=== PATIENT | female | born 1965 | race Caucasian/White ===

== ENCOUNTER 2023-03-10 10:21 | Outpatient (AMB) | payer OTHER, SELFPAY ==
--- NOTE | 2023-03-10 10:23 | MHC.PC.OV ---
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 Past medical history significant for COPD, osteoarthritis and history of fatty liver. Assess the establishing care with director cardiovascular for calcifications in her arteries. Patient advised to send medical records to office. Previous patient of Dr. Lucero, In [place] Pap smears: [facility], completed summer 2022 Mammogram: Apr 2021, negative Colonscopy: 2018, polyps rec 5 year follow up eye exams: Recommended every couple years Patient reports she has received her flu shot this season and states her Tdap is up-to-date. Patient also reports had pneumonia vaccine due to her history of COPD. [facility] Medical History (Updated 03/10/23 @ 10:46 by JEFFREY Livingston) Fatty liver Breast implant status Hx of smoking Hyperlipidemia Surgical History (Updated 03/10/23 @ 10:38 by JEFFREY Livingston) Tubal ligation status Social History Housing: House Patient Tobacco Use Status: Former Tobacco user service: No Current occupational status: employed Cognitive needs: No Hearing needs: No Vision needs: No Questionnaire PHQ-9 Over the last 2 weeks, how often have you been bothered by any of the following problems? 1. Little interest or pleasure in doing things: not at all 2. Feeling down, depressed, or hopeless: not at all 3. Trouble falling or staying asleep, or sleeping too much: not at all 4. Feeling tired or having little energy: not at all 5. Poor appetite or overeating: not at all 6. Feeling bad about yourself - or that you are a failure or have let yourself or your family down: not at all 7. Trouble concentrating on things, such as reading the newspaper or watching television: not at all 8. Moving or speaking so slowly that other people could have noticed. Or the opposite - being so fidgety or restless that you have been moving around a lot more than usual: not at all 9. Thoughts that you would be better off or of hurting yourself in some way: not at all Total score: 0 Depression Screening Interpretation: Negative Depression Screening Done: Yes 30760 - PHQ-9 Billing: Yes Source: Developed by Drs. Teodoro Hsieh, Daisha Valenzuela, Roberto Corona and colleagues, with an educational rebecca from [employer]. Thrive Questionnaire Date Thrive assessed: 03/10/23 I am a: Patient What is your living situation today?: I have a steady place to live Within the past 12 months, did the food you bought not last and you didn't have the money to get more?: Never true Within the past 12 months, did you worry whether your food would run out before you got money to buy more?: Never true Do you have trouble paying for medicines?: No Do you have trouble getting transportation to medical appointments?: No Do you have trouble paying your heating and electricity bill?: No Do you have trouble taking care of your child, family member or friend?: No Do you have trouble with day-to-day activities such as bathing, preparing meals, shopping, managing finances, etc.?: No Are you currently unemployed and looking for a job?: No Are you interested in more education?: No AUDIT C Alcohol Use Questionnaire (AUDIT-C) 1. How often do you have a drink containing alcohol?: 2-3 times a week 2. How many drinks containing alcohol do you have on a typical day when you are drinking?: 3 or 4 3. How often do you have six or more drinks on one occasion?: Never Total Score: 4 MARY-7 AMB Questionnaire MARY-7 Date MARY - 7 assessed: 03/10/23 Feeling nervous, anxious, or on edge: 0 = Not at all Not being able to stop or control worryin = Not at all Worrying too much about different things: 0 = Not at all Trouble relaxin = Not at all Being so restless that it is hard to sit still: 0 = Not at all Becoming easily annoyed or irritable: 0 = Not at all Feeling afraid as if something awful might happen: 0 = Not at all Total MARY-7 score (0-4 normal; 5-9 mild; 10-14 moderate; 15-21 severe): 0 Source: Developed by Drs. Teodoro Hsieh, Daisha Valenzuela, Roberto Corona and colleagues, with an educational rebecca from [employer]. MARY-7 Assessment Billing MARY-7 Assessment Tool: MARY-7 Assessment 54375 Physical exam (Primary Care) Vital Signs: Last Vital Signs Pulse 75 03/10/23 10:24 BP 122/78 03/10/23 10:24 Pulse Ox 98 03/10/23 10:24 Oxygen Delivery Method Room Air 03/10/23 10:24 BMI result Body Mass Index 24.3 Tobacco/Smoking Status: Tobacco use Status Tobacco use date assessed 03/10/23 03/10/23 10:24 Patient Tobacco Use Status Former Tobacco user 03/10/23 10:29 PHQ-9: PHQ-9 Score PHQ-9: Total score 0 03/10/23 10:42 Depression Screening Interpretation: Negative Thrive Assessment: Date of Thrive Assessment Date Thrive assessed 03/10/23 03/10/23 10:24 Assessment and Plan Assessment & Plan (1) Osteoarthritis: Code(s): M19.90 - Unspecified osteoarthritis, unspecified site Plan: Continue on meloxicam 15 mg daily as needed. Prescription sent to patient's pharmacy. (2) COPD (chronic obstructive pulmonary disease): Code(s): J44.9 - Chronic obstructive pulmonary disease, unspecified Plan: Continue on albuterol inhaler as needed. Patient reports that she does not require using albuterol inhaler frequently has not used in months. Patient denies any need for prescription for albuterol at this time states she has a stock pile at home. Patient advised to notify PCP if albuterol inhaler expires in can send her and refill. (3) Physical exam, annual: Code(s): Z00.00 - Encounter for general adult medical examination without abnormal findings Plan: Follow-up in 1 year Orders: Orders Hemoglobin A1c Today Z83.3 - Family history of diabetes mellitus Complete Blood Count Auto Diff Today Z13.0 - Encounter for screening for diseases of the blood and blood-forming organs and certain disorders involving the immune mechanism Comprehensive [place]. Panel Fast Today J44.9 - Chronic obstructive pulmonary disease, unspecified TSH reflex Free T4 Today Z13.29 - Encounter for screening for other suspected endocrine disorder Vitamin D 25-OH Total Today Z13.21 - Encounter for screening for nutritional disorder Lipid Panel Today Z13.220 - Encounter for screening for lipoid disorders Medications: New meloxicam 15 mg PO DAILY 30 tabs 0RF M19.90 - Unspecified osteoarthritis, unspecified site Coding Level of Care Code New Pt Prev Care 40-64y(06892) Diagnoses Osteoarthritis M19.90 COPD (chronic obstructive pulmonary disease) J44.9 Physical exam, annual Z00.00 Additional Codes MARY-7 Assessment Billing - MARY-7 Assessment Tool: MARY-7 Assessment 47472 ([id number])
[2023-03-10 10:24] VITALS: BP 122/78; PULSE 75; O2SAT 98; BMI 24.3
== END 2023-03-10 10:54 | disposition home or self-care (01) ==
PROVIDERS: Visit Provider Nurse Practitioner Family
DX: M19.90 Unspecified osteoarthritis, unspecified site (principal); J44.9 Chronic obstructive pulmonary disease, unspecified; Z00.00 Encounter for general adult medical examination without abnormal findings
CPT/HCPCS: 99386

== ENCOUNTER 2023-05-28 08:39 | Outpatient (REF) | payer OTHER, SELFPAY ==
[2023-05-28 11:33] LABS: MANUAL DIFF FLAG NO
[2023-05-28 11:47] LABS: Basophils Absolute Auto 0.1 X10*3/uL (0.0-0.2); Basophils Percent Auto 1.6 % (0-2); Eosinophils Absolute Auto 0.1 X10*3/uL (0.0-0.4); Hematocrit 42.1 % (37.0-47.0); Hemoglobin 13.8 g/dl (12.0-16.0); Imm Gran Abs Auto 0.01 X10*3/uL (0.00-0.03); Imm Gran Pct Auto 0.2 % (0.0-0.4); Lymphocytes Percent Auto 38.8 % (20-40); Mean Corpuscular HGB Conc 32.8 g/dl (31.0-35.0); Mean Corpuscular Hemoglobin 30.1 pg (27.0-33.0); Mean Corpuscular Volume 91.7 fL (80.0-98.0); Monocytes Absolute Auto 0.6 X10*3/uL (0.1-1.2); Monocytes Percent Auto 11.5 % (2-11); Neutrophils Absolute Auto 2.4 x10*3/uL (2.0-8.3); Neutrophils Percent Auto 46.9 % (45-73); Platelet Count 301 X10*3/uL (160-400); Red Blood Count 4.59 X10*6/uL (4.20-5.50); Red Cell Distribution Width 12.5 % (11.0-16.0); White Blood Count 5.1 X10*3/uL (4.8-10.8)
[2023-05-28 11:58] LABS: Estimated Average Glucose 108 mg/dL; Hemoglobin A1c % 5.4 % (<6.0)
[2023-05-28 12:05] LABS: Alanine Aminotransferase 14 U/L (0-31); Albumin Level 4.1 g/dL (3.5-5.0); Alkaline Phosphatase 59 U/L (39-117); Anion Gap 9 (12-20); Aspartate Amino Transferase 17 U/L (5-31); Bilirubin Total 0.4 mg/dL (0.0-1.0); Blood Urea Nitrogen 15 mg/dL (9-16); Calcium 9.1 mg/dL (8.4-10.2); Carbon Dioxide 28 mmol/L (22-29); Chloride 104 mmol/L (96-108); Cholesterol 249 mg/dL (<200); Estimated Glomerular Filt Rate > 60; Glucose Fasting 99 mg/dL (60-99); HDL Cholesterol 68 mg/dL (>40); LDL Cholesterol Calculated 162 mg/dL (<100); Potassium 4.3 mmol/L (3.3-5.1); Sodium 137 mmol/L (135-145); Total Protein 6.8 g/dL (6.5-8.0); Triglycerides 96 mg/dL (<150)
[2023-05-28 12:28] LABS: TSH reflex Free T4 1.43 uIU/mL (0.32-4.0); Vitamin D 25-OH Total 48.4 ng/mL (>30)
== END 2023-05-28 08:40 | disposition home or self-care (01) ==
LOC: HO.WFDLDS 08:39
PROVIDERS: Visit Provider Nurse Practitioner Family
DX: Z13.29 Encounter for screening for other suspected endocrine disorder (principal); Z13.220 Encounter for screening for lipoid disorders; Z13.21 Encounter for screening for nutritional disorder; Z13.0 Encounter for screening for diseases of the blood and blood-forming organs and certain disorders involving the immune mechanism; J44.9 Chronic obstructive pulmonary disease, unspecified; Z83.3 Family history of diabetes mellitus
CPT/HCPCS: 36415; 80053; 80061; 82306; 83036; 84443; 85025

== ENCOUNTER 2023-06-09 11:57 | Outpatient (REF) | payer OTHER, SELFPAY ==
--- NOTE | ~2023-06-09 | MM_ITS ---
EXAMINATION: MM SCREENING DIGITAL BREAST TOMOSYNTHESIS, BILATERAL WITH BREAST IMPLANTS CLINICAL INFORMATION: Screening. Asymptomatic. COMPARISON: Mammography: This study is compared with prior mammography dating back to 2019. TECHNIQUE: Digital mammography is performed in craniocaudal and mediolateral oblique views along with computer-aided detection (CAD). Digital breast tomosynthesis is performed in implant-displaced craniocaudal and implant-displaced mediolateral oblique views along with computer-aided detection (CAD). Synthesized 2D images are generated from the tomosynthesis. FINDINGS: The breasts are almost entirely fatty (ACR BI-RADS breast composition Category a). There are bilateral, mammographically intact, retroglandular saline breast implants. There are no significant masses, abnormal calcifications, or other abnormalities. MM/MM tomosynthesis screen imp BI IMPRESSION: There are no significant changes from prior study. ASSESSMENT: BI-RADS BI-RADS 1 - Negative RECOMMENDATION: Routine annual mammography screening. 1 year F/U This patient's information was entered into a reminder system with a target due date for their next mammogram.
== END 2023-06-09 11:58 | disposition home or self-care (01) ==
LOC: HO.MAMMO 11:57
PROVIDERS: PCP Nurse Practitioner Family; Visit Provider Internal Medicine
DX: Z12.31 Encounter for screening mammogram for malignant neoplasm of breast (principal)
CPT/HCPCS: 77063; 77067

== ENCOUNTER → 2023-06-09 12:00 | Outpatient (BNV) | payer OTHER, SELFPAY | PROVIDERS: PCP Nurse Practitioner Family; Visit Provider Radiology Diagnostic Radiology | DX: Z12.31 Encounter for screening mammogram for malignant neoplasm of breast (principal) | CPT/HCPCS: 77063; 77067 ==

== ENCOUNTER 2023-06-13 12:02 | Outpatient (AMB) | payer OTHER, SELFPAY ==
--- NOTE | 2023-06-13 12:04 | A.OFFPC_ITS ---
Vital Signs 06/13/23 12:11 Height 5 ft 3 in Weight 136 lb BMI 24.1 BP 120/74 Blood Pressure Location Rt brachial Position Sitting Pulse 84 Pulse Source Pulse Oximeter Pulse Oximetry (%) 96 Oxygen Delivery Method Room Air Intake Visit Reasons: LISSETTE from [place] Intake Note: Patient is here today for transfer of care from [facility]. 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 Operator: Not Required per policy Accompanied by: Self / Same As Patient Allergies No Known Allergies Allergy (Verified 06/13/23 12:41) Medication List - Last Reconciled 06/13/23 by Jacqueline [place], LOGGING OPERATIONS INSPECTOR- albuterol sulfate 90 mcg/actuation (Ventolin HFA) 2 puffs inhalation Q4-6H PRN meloxicam 15 mg PO DAILY Tobacco use date assessed: 06/13/23 Dental Screening Dental Screen Date: 06/13/23 Did you have a dental visit in the last 12 months?: Yes Did you have a dental problem in the last 6 months where you did not have access to dental care?: No Was dental information given to patient?: Patient has dentist HPI HPI Comments History of Present Illness Details Limited records available for review, previous primary care provider [facility] 57-year-old female with fatty liver dise ase, former smoker, hyperlipidemia, COPD, osteoarthritis, CAD Status post breast implants, tubal ligation Health maintenance Pap smear summer reported as normal at [facility] Mammogram 06/09/2023 Colonoscopy 2019, polyps repeat in 5 years (2023) Lung Ca screening: smoked for 33 years. Active w/ [facility]. Next CT scan DEXA 2020 + osteopenia, due for repeat. Vaccines: UTD on flu; No RSV. Has had one PCV vaccine in the last 10 years. Will get Tdap today. 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 Does not want any cholesterol lowering agents. Reports incidental finding of moderate coronary artery disease of the aorta on CT scan of the chest done for lung cancer surveillance 1 year ago. Would like to see Cardiology for further workup Had life screen: EKG, PAD and carotid screening all WNL per her reports. [facility] Medical History (Updated 06/13/23 @ 14:11 by NORMAN Darnell) Fatty liver Breast implant status Hx of smoking Hyperlipidemia Surgical History Tubal ligation status Family History Other Mental health disorder Substance use disorder Social History Housing: House Alcohol intake: current Alcohol intake frequency: a few times a week Patient Tobacco Use Status: Former Tobacco user e-Cigarette/Vaping Use: Never Used Second Hand Smoke Exposure: No service: No Current occupational status: employed Cognitive needs: No Hearing needs: No Vision needs: No Questionnaire PHQ-9 Over the last 2 weeks, how often have you been bothered by any of the following problems? 1. Little interest or pleasure in doing things: not at all 2. Feeling down, depressed, or hopeless: not at all 3. Trouble falling or staying asleep, or sleeping too much: not at all 4. Feeling tired or having little energy: not at all 5. Poor appetite or overeating: not at all 6. Feeling bad about yourself - or that you are a failure or have let yourself or your family down: not at all 7. Trouble concentrating on things, such as reading the newspaper or watching television: not at all 8. Moving or speaking so slowly that other people could have noticed. Or the opposite - being so fidgety or restless that you have been moving around a lot more than usual: not at all 9. Thoughts that you would be better off or of hurting yourself in some way: not at all Total score: 0 Depression Screening Interpretation: Negative Depression Screening Done: Yes 09978 - PHQ-9 Billing: Yes Source: Developed by Drs. Teodoro Hsieh, Daisha Valenzuela, Roberto Corona and colleagues, with an educational rebecca from [employer]. Thrive Questionnaire Date Thrive assessed: 06/13/23 I am a: Patient What is your living situation today?: I have a steady place to live Within the past 12 months, did the food you bought not last and you didn't have the money to get more?: Never true Within the past 12 months, did you worry whether your food would run out before you got money to buy more?: Never true Do you have trouble paying for medicines?: No Do you have trouble getting transportation to medical appointments?: No Do you have trouble paying your heating and electricity bill?: No Do you have trouble taking care of your child, family member or friend?: No Do you have trouble with day-to-day activities such as bathing, preparing meals, shopping, managing finances, etc.?: No Are you currently unemployed and looking for a job?: No Are you interested in more education?: No Please select the resources that you would like help with: None Currently or been in a relationship where the following occur: no concerns r eported THRIVE Score: 0 AUDIT C Alcohol Use Questionnaire (AUDIT-C) 1. How often do you have a drink containing alcohol?: 2-3 times a week 2. How many drinks containing alcohol do you have on a typical day when you are drinking?: 1 or 2 Total Score: 3 Score Reviewed/Action Taken: Yes MARY-7 AMB Questionnaire MARY-7 Date MARY - 7 assessed: 06/13/23 Feeling nervous, anxious, or on edge: 0 = Not at all Not being able to stop or control worryin = Not at all Worrying too much about different things: 0 = Not at all Trouble relaxin = Not at all Being so restless that it is hard to sit still: 0 = Not at all Becoming easily annoyed or irritable: 0 = Not at all Feeling afraid as if something awful might happen: 0 = Not at all Total MARY-7 score (0-4 normal; 5-9 mild; 10-14 moderate; 15-21 severe): 0 Source: Developed by Drs. Teodoro Hsieh, Daisha Valenzuela, Roberto Corona and colleagues, with an educational rebecca from [employer]. MARY-7 Assessment Billing MARY-7 Assessment Tool: MARY-7 Assessment 11724 Review of Systems Const Details: Constitutional: Denies fever. Skin: Denies rash. Eye: Denies eye pain. ENMT: Denies sore throat and nasal congestion. Respiratory: Denies shortness of breath and cough. Gastrointestinal: Denies nausea, vomiting or abdominal pain. Cardiovascular: Denies chest pain and syncope. Genitourinary: Denies dysuria. Musculoskeletal: Denies back pain and extremity pain. Neurologic: Denies headaches, confusion, and weakness. Psychiatric: Denies suicidal thoughts and substance abuse. Allergy/ Immunologic: Denies impaired immunity. Physical exam (Primary Care) Vital Signs: Last Vital Signs Pulse 84 06/13/23 12:11 BP 120/74 06/13/23 12:11 Pulse Ox 96 06/13/23 12:11 Oxygen Delivery Method Room Air 06/13/23 12:11 BMI result Body Mass Index 24.1 Tobacco/Smoking Status: Tobacco use Status Tobacco use date assessed 06/13/23 06/13/23 12:15 Patient Tobacco Use Status Former Tobacco user 06/13/23 12:14 e-Cigarette/Vaping Use Never Used 06/13/23 12:15 PHQ-9: PHQ-9 Score PHQ-9: Total score 0 06/13/23 13:12 Depression Screening Interpretation: Negative Thrive Assessment: Date of Thrive Assessment Date Thrive assessed 06/13/23 06/13/23 12:15 Currently or been in a relationship where the following occur: no concerns reported Const Other: General: Well developed, well nourished, in no acute distress. Appears stated age. Head: Normocephalic, atraumatic. Eyes: Pupils are equal, round and reactive to light and accommodation. Conjunctivae are clear. Vision grossly normal. Ears: TMs clear AU, EACS WNL Nose: Patent, without discharge. Mouth: There are no ulcers or lesions noted. No inflammation, no post nasal drip, no plaques nor exudates. Neck: Supple, no adenopathy or thyromegaly. Lungs: Clear to auscultation bilaterally. No rales, rhonchi or wheeze noted. Good air flow in all philippe. Heart: Regular rate and rhythm. No murmurs, click, rubs or gallops are noted. Abdomen: Bowel sounds present in all quadrants. The abdomen is soft, nontender, with no masses or organomegaly noted. No hernias are noted. Musculoskeletal: Joints are nontender, without swelling, redness, or effusions. Range of motion is observed to be normal. Pulses: Peripheral pulses are equal and palpable bilaterally. Extremities: No clubbing, cyanosis nor edema is noted. Neurologic: Gait and station normal. Cranial Nerves 2-12 intact. Motor strength grossly symmetrical and intact. No sensory loss. Balance normal. Skin: No rashes, ulcers, or lesions noted. Turgor is good. Skin color is good. Hair and nails are without abnormalities. Psych: Normal eye contact, affect and mood appropriate, and normal interactions. Patient is alert and appropriate to context. Extremities: No clubbing, cyanosis or edema. Immunizations Boostrix Tdap 2.5 Lf unit-8 mcg-5 Lf/0.5 mL intramuscular syringe Performing Provider: NORMAN Darnell Performing Location: [facility] Administered by: Shae Espinosa CMA on 06/13/23 13:12 Dose Route Admin Location Dispensed Lot Number Expiration Date NDC Automation And Controls Manager 0.5 mL IM Left Deltoid 0.5 mL [id number] 04/02/25 [id number] FIA Formula E VIS Given Date VIS Provided VIS Publication Date 06/13/23 Single Vaccine 20 Eligibility Eligibility Date Funding Source Not [facility] Eligible 06/13/23 Private Assessment and Plan Assessment & Plan (1) Physical exam: Code(s): Z00.00 - Encounter for general adult medical examination without abnormal findings (2) CAD in [place] artery: Code(s): I25.10 - Atherosclerotic heart disease of [place] coronary artery without angina pectoris (3) Hx of smoking: Comment: hx 30 year smoking, active with [facility] for lung cancer screening program. Next CT scheduled for June of 2023 Code(s): Z87.891 - Personal history of nicotine dependence (4) Screen for colon cancer: Code(s): Z12.11 - Encounter for screening for malignant neoplasm of colon Plan: Refer to [facility]. (5) Osteopenia: Comment: DEXA 2020. Repeat ordered today Code(s): M85.80 - Other specified disorders of bone density and structure, unspecified site Qualifiers: Osteopenia location: multiple sites Qualified Code(s): M85.89 - Other specified disorders of bone density and structure, multiple sites (6) COPD (chronic obstructive pulmonary disease): Comment: Maintained only on p.r.n. use of albuterol. 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 Reports very minimal symptoms. Up-to-date on vaccines. Code(s): J44.9 - Chronic obstructive pulmonary disease, unspecified Qualifiers: COPD type: emphysema Emphysema type: panlobular Qualified Code(s): J43.1 - Panlobular emphysema (7) Hyperlipidemia: Comment: Declines a statin at this time. Cardiology referral placed for further workup of hyperlipidemia and CAD per her request Code(s): E78.5 - Hyperlipidemia, unspecified Qualifiers: Hyperlipidemia type: mixed hyperlipidemia Qualified Code(s): E78.2 - Mixed hyperlipidemia (8) Fatty liver: Comment: Known condition with ultrasound done in the past by previous primary care provider. Code(s): K76.0 - Fatty (change of) liver, not elsewhere classified Orders: Orders XR DEXA axial skeleton Today M85.80 - Other specified disorders of bone density and structure, unspecified site Comprehensive [place]. Panel Fast 04/28/24 I25.10 - Atherosclerotic heart disease of [place] coronary artery without angina pectoris, J44.9 - Chronic obstructive pulmonary disease, unspecified, M85.80 - Other specified disorders of bone density and structure, unspecified site, Z00.00 - Encounter for general adult medical examination without abnormal findings, Z87.891 - Personal history of nicotine dependence Lipid Panel 04/28/24 I25.10 - Atherosclerotic heart disease of [place] coronary artery without angina pectoris, J44.9 - Chronic obstructive pulmonary disease, unspecified, M85.80 - Other specified disorders of bone density and structure, unspecified site, Z00.00 - Encounter for general adult medical examination without abnormal findings, Z87.891 - Personal history of nicotine dependence Microalbumin, Random (w Creat) 04/28/24 I25.10 - Atherosclerotic heart disease of [place] coronary artery without angina pectoris, J44.9 - Chronic obstructive pulmonary disease, unspecified, M85.80 - Other specified disorders of bone density and structure, unspecified site, Z00.00 - Encounter for general adult medical examination without abnormal findings, Z87.891 - Personal history of nicotine dependence TDaP Immunization Today Z23 - Encounter for immunization TSH reflex Free T4 04/28/24 I25.10 - Atherosclerotic heart disease of [place] coronary artery without angina pectoris, J44.9 - Chronic obstructive pulmonary disease, unspecified, M85.80 - Other specified disorders of bone density and structure, unspecified site, Z00.00 - Encounter for general adult medical examination without abnormal findings, Z87.891 - Personal history of nicotine dependence UA and rflx microscopic 04/28/24 I25.10 - Atherosclerotic heart disease of [place] coronary artery without angina pectoris, J44.9 - Chronic obstructive pulmonary disease, unspecified, M85.80 - Other specified disorders of bone density and structure, unspecified site, Z00.00 - Encounter for general adult medical examination without abnormal findings, Z87.891 - Personal history of nicotine dependence Referrals Gastroenterology Referral Z12.11 - Encounter for screening for malignant neoplasm of colon Cardiology Referral I25.10 - Atherosclerotic heart disease of [place] coronary a rtery without angina pectoris, Z87.891 - Personal history of nicotine dependence Medications: Refilled meloxicam 15 mg PO DAILY 30 tabs 3RF M19.90 - Unspecified osteoarthritis, unspecified site Coding Level of Care Code Est Pt Prev Care 40-64y(12059) Diagnoses Physical exam Z00.00 CAD in [place] artery I25.10 Hx of smoking Z87.891 Screen for colon cancer Z12.11 Osteopenia of multiple sites M85.89 Osteopenia location: multiple sites Panlobular emphysema J43.1 COPD type: emphysema Emphysema type: panlobular Mixed hyperlipidemia E78.2 Hyperlipidemia type: mixed hyperlipidemia Fatty liver K76.0 Additional Codes MARY-7 Assessment Billing - MARY-7 Assessment Tool: MARY-7 Assessment 18030 ([id number])
[2023-06-13 12:11] VITALS: BP 120/74; PULSE 84; O2SAT 96; BMI 24.1
== END 2023-06-13 13:32 | disposition home or self-care (01) ==
PROVIDERS: Visit Provider Nurse Practitioner Family
DX: Z00.00 Encounter for general adult medical examination without abnormal findings (principal); J43.1 Panlobular emphysema; I25.10 Atherosclerotic heart disease of native coronary artery without angina pectoris; Z23 Encounter for immunization; Z87.891 Personal history of nicotine dependence; Z12.11 Encounter for screening for malignant neoplasm of colon; M85.89 Other specified disorders of bone density and structure, multiple sites; E78.2 Mixed hyperlipidemia; K76.0 Fatty (change of) liver, not elsewhere classified
CPT/HCPCS: 90471; 90715; 99396

== ENCOUNTER 2023-07-03 12:50 | Outpatient (REF) | payer OTHER, SELFPAY ==
--- NOTE | ~2023-07-03 | MM_ITS ---
EXAMINATION: BONE DENSITOMETRY CLINICAL INDICATION: Other specified disorders of bone density and structure, unspecified site. COMPARISON: This is the patient's baseline examination. TECHNIQUE: Using a [employer] DXA System (software version: 13.1) manufactured by [employer], dual-energy x-ray absorptiometry was performed of the lumbar spine and left hip. The images are of good technical quality. Summary results are attached. FINDINGS: LEFT FEMUR, NECK: BMD 0.778 g/cm2, Z-score -0.7, T-score -1.9, osteopenia. LEFT FEMUR, TOTAL: BMD 0.866 g/cm2, Z-score -0.3, T-score -1.1, osteopenia. AP SPINE L1-L4: BMD 0.976 g/cm2, Z-score -0.6, T-score -1.7, osteopenia. IDENTIFIED RISK FACTORS: Early menopause, history of fracture (adult). HISTORY OF FRACTURE: Shoulder. MEDICATIONS: Vitamin D. MM/XR DEXA axial skeleton IMPRESSION: 1. DIAGNOSIS: Osteopenia based on the lowest T-score value of -1.9 in the femoral neck applying World Health Organization criteria. 2. 10-YEAR FRACTURE RISK PREDICTION, FRAX: Major osteoporotic fracture (clinical spine, forearm, hip or shoulder) 14.7%. Hip fracture 1.8%. 3. Treatment Recommendations: NOF guidelines recommend consideration for treatment in postmenopausal women and men age 50 and older presenting with the following: -A hip or vertebral (clinical or morphometric) fracture. -T-score less than or equal to -2.5 at the femoral neck or spine after appropriate evaluation to exclude secondary causes. -Low bone mass at the hip or spine and a 10-year fracture probability by FRAX of greater than or equal to 3% for hip fracture or greater than or equal to 20% for major osteoporotic fracture based on the [place] adapted WHO algorithm. 4. Other Recommendations: All treatment decisions require clinical judgment and consideration of individual patient factors, including patient preferences, comorbidities, previous drug use, risk factors not captured in the FRAX model (e.g. frailty, falls, vitamin D deficiency, increased bone turnover, interval significant decline in bone density) and possible under or overestimation of fracture risk by FRAX. Additional medical evaluation for secondary cause of low bone mineral density may be appropriate. FUTURE SCAN RECOMMENDATION: People with diagnosed cases of osteoporosis or at high risk for fracture should have regular bone mineral density tests. For patients eligible for Medicare, routine testing is allowed once every 2 years. The testing frequency can be increased to one year for patients who have rapidly progressing disease, those who are receiving or discontinuing medical therapy to restore bone mass, or have additional risk factors.
== END 2023-07-03 12:51 | disposition home or self-care (01) ==
LOC: HO.MAMMO 12:50
PROVIDERS: PCP Nurse Practitioner Family; Visit Provider Nurse Practitioner Family
DX: Z13.820 Encounter for screening for osteoporosis (principal); M85.80 Other specified disorders of bone density and structure, unspecified site; Z78.0 Asymptomatic menopausal state
CPT/HCPCS: 77080

== ENCOUNTER 2023-07-18 09:18 | Outpatient (AMB) | payer OTHER, SELFPAY ==
--- NOTE | 2023-07-18 09:27 | A.OFFVIS_ITS ---
Intake Intake Visit Reasons: LDCT SD Allergies No Known Allergies Allergy (Verified 06/13/23 12:41) HPI HPI Comments History of Present Illness Details Rosalia is a pleasant 57 year old female, former smoker with a 33 PYH, quit 2012 Patient has been smoking since age 13 for 33 years at 1 ppd. Denies marijuana use. Reports exposure to asbestos and diesel fumes. Admits second hand smoke exposure. Reports paternal aunt, smoker, with history of lung cancer. Denies personal history of cancers. Denies chest CT in last year. Previously apart of LCS program at [facility] last CT 04/2022 RADS 2. Denies recent travel outside the [place]. Admits testing positive for COVID. Admits receiving COVID Vaccine. Denies fever, chills, chest pain, new cough, hemoptysis or unintentional weight loss. Lung Cancer Screening Questionnaire reviewed with patient by provider. Shared Decision Making Completed. Discussed in detail with patient, the risk versus benefit of LDCT screening. Patient in agreement of proceeding with scan. [facility] Medical History (Updated 07/07/23 @ 11:08 by JEFFREY Darnell-NEHEMIAH) Fatty liver Breast implant status Hx of smoking Hyperlipidemia Surgical History Tubal ligation status Family History Other Mental health disorder Substance use disorder Social History Housing: House Alcohol intake: current Alcohol intake frequency: a few times a week Patient Tobacco Use Status: Former Tobacco user e-Cigarette/Vaping Use: Never Used Second Hand Smoke Exposure: No service: No Current occupational status: employed Cognitive needs: No Hearing needs: No Vision needs: No Assessment & Plan Assessment & Plan (1) Hx of smoking: Code(s): Z87.891 - Personal history of nicotine dependence Plan Shared decision-making visit completed today in office. This patient meets criteria for LDCT for lung cancer screening purposes and is asymptomatic. Patient has been scheduled for a low dose chest CT for screening purposes at [facility]. We discussed how the results will be obtained depending on CT findings. RADS 1 and RADS 2 will receive a letter with results and will follow up for annual LDCT. Patient informed they will be contacted at later date to schedule upcoming LDCT scan. RADS 3 and RADS 4 will receive a telephone call, or an office visit after reviewing case at our Lung Cancer Conference to determine when the next LDCT will be scheduled or further interventions that may be needed. Discussed importance of screening program and compliance with yearly LDCT scan as scheduled. Risks, benefits, and alternatives were discussed in detail and patient agrees to proceed. Risks discussed include but are not limited to: radiation exposure and possibility of additional intervention for benign disease. Benefits include detection of lung cancer at an early stage. A copy of today's visit and LDCT results will be sent to patient's PCP. Incidental findings on LDCT are PCP's responsibility. If there are incidental findings, our office will ensure that PCP office is aware of these findings. All questions were answered and patient is in agreement of plan. Coding Level of Care Code Lung Cancer Screening G0296 Diagnoses Hx of smoking Z87.891
== END 2023-07-18 10:20 | disposition home or self-care (01) ==
PROVIDERS: PCP Nurse Practitioner Family; Referring Provider Nurse Practitioner Family; Visit Provider Nurse Practitioner Family
DX: Z87.891 Personal history of nicotine dependence (principal)
CPT/HCPCS: G0296

== ENCOUNTER 2023-07-18 09:36 | Outpatient (REF) | payer OTHER, SELFPAY ==
--- NOTE | ~2023-07-18 | CT_ITS ---
EXAMINATION: CT LUNG SCREENING CLINICAL INFORMATION: History of smoking. Quit 10 years ago. Smoked 1 pack per day for a 34 pack-year history. COMPARISON: None available. TECHNIQUE: Multidetector volumetric CT imaging of the chest is performed without contrast using low dose technique. Additional 2D coronal and sagittal reformatted images and axial 3D maximum intensity projection (MIP) images are generated on the CT workstation. This CT examination was performed using dose optimization techniques as appropriate, variously including the following: *Automated exposure control *Adjustment of mA and/or kV according to patient size (this includes techniques or standardized protocols for targeted exams where dose is matched to indication/reason for exam; i.e. extremities or head) *Use of iterative reconstruction technique DLP: 36 mGy-cm. FINDINGS: LUNGS: Jgmqgnkh-sp-ozdrzo emphysematous changes are present. Bronchial wall thickening is seen. Some tiny micronodules are seen at the left base, the largest 3 mm (5:285 and 289). In the left upper lobe laterally, there is a thick-walled cyst measuring about 1.67 cm in size. The medial border has a rounded lobular area measuring 6 x 2 mm (see blanco images which include off axis axial imaging). MEDIASTINUM: The mediastinum is normal. CORONARY ARTERY CALCIFICATION: Present. PLEURA: There is no pleural effusion. No pleural mass or thickening. AXILLA/CHEST WALL: Bilateral breast prostheses are present. UPPER ABDOMEN: Unremarkable. OSSEOUS STRUCTURES: Unremarkable. CT/CT lung screening IMPRESSION: Atypical cyst with asymmetric wall thickening as described above. Underlying emphysema, bronchial wall thickening and hepatic steatosis. ASSESSMENT: Lung-RADS category 4A: Suspicious. RECOMMENDATION: Short interval 3 month follow up low dose CT chest.
== END 2023-07-18 09:37 | disposition home or self-care (01) ==
LOC: HO.CT 09:36
PROVIDERS: PCP Nurse Practitioner Family; Visit Provider Nurse Practitioner Family
DX: Z12.2 Encounter for screening for malignant neoplasm of respiratory organs (principal); Z87.891 Personal history of nicotine dependence
CPT/HCPCS: 71271; G0296

== ENCOUNTER 2023-10-20 10:31 | Outpatient (REF) | payer OTHER, SELFPAY ==
--- NOTE | ~2023-10-20 | CT_ITS ---
EXAMINATION: CT CHEST WITHOUT CONTRAST CLINICAL INFORMATION: Follow-up nodules COMPARISON: 07/18/2023 TECHNIQUE: Multidetector volumetric CT imaging of the chest was done. Axial MIP volume rendering provided. Sagittal and coronal reformatted images were obtained. This CT examination was performed using dose optimization techniques as appropriate, variously including the following: *Automated exposure control *Adjustment of mA and/or kV according to patient size (this includes techniques or standardized protocols for targeted exams where dose is matched to indication/reason for exam; i.e. extremities or head) *Use of iterative reconstruction technique DLP: 117 mGy-cm FINDINGS: LUNGS: Left upper lobe mixed cystic/solid nodule measures 1.2 x 2.1 cm with the solid component measuring 3 mm (5:147. Moderate background emphysema. Left lower lobe 3 mm nodule (5:398), unchanged. Central airways are PLEURA: No pleural effusion. MEDIASTINUM: No cardiomegaly. Aorta and pulmonary artery are normal in caliber. No mediastinal adenopathy. No hilar lymphadenopathy. CORONARY ARTERY CALCIFICATION: Coronary artery calcifications are present. CHEST WALL/AXILLA: No axillary or internal mammary lymphadenopathy. Bilateral breast implants are noted. UPPER ABDOMEN: Unremarkable. OSSEOUS STRUCTURES: Unremarkable. CT/CT chest wo IV con IMPRESSION: Left upper lobe mixed cystic/solid nodule measures 1.2 x 2.1 cm with the solid component measuring 3 mm. According to the UPDATED 2017 Fleischner Society recommendations, the advised followup imaging for a single part solid nodule measuring 6 mm or greater is: CT at 3-6 months to confirm persistence. If unchanged and solid component remains <6 mm, annual CT should be performed for 5 years.
== END 2023-10-20 10:32 | disposition home or self-care (01) ==
LOC: HO.CT 10:31
PROVIDERS: PCP Nurse Practitioner Family; Visit Provider Nurse Practitioner Family
DX: R91.1 Solitary pulmonary nodule (principal); J98.4 Other disorders of lung
CPT/HCPCS: 71250

== ENCOUNTER 2023-10-22 07:59 | Outpatient (AMB) | payer OTHER, SELFPAY ==
[2023-10-22 08:02] VITALS: PULSE 68; O2SAT 97; BMI 24.3
--- NOTE | 2023-10-22 08:02 | MHC.OFFWIV ---
Intake Vital Signs 10/22/23 08:02 Height 5 ft 3 in Weight 137 lb BMI 24.3 Pulse 68 Pulse Source Pulse Oximeter Pulse Oximetry (%) 97 Oxygen Delivery Method Room Air Intake Visit Reasons: est/ swollen face/ poison karen? Patient Tobacco Use Status: Former Tobacco user Allergies No Known Allergies Allergy (Verified 10/22/23 08:03) Medication List - Last Reconciled 10/22/23 by NORMAN Darnell albuterol sulfate 90 mcg/actuation (Ventolin HFA) 2 puffs inhalation Q4-6H PRN atorvastatin 40 mg PO BEDTIME hydroxyzine HCl 25 mg PO BID PRN meloxicam 15 mg PO DAILY HPI HPI Comments History of Present Illness Details Here today w/ poison ivu Exposed to dog who was walking in the [place] and exposed to poison karen broke out in the rash on Friday, the exposure was on Friday Rash is on chest, face and arms Using Ivyrest, salv and other drawing salv w/ limited relief [facility] Medical History (Updated 08/27/23 @ 17:21 by NORMAN Darnell) Fatty liver Breast implant status Hx of smoking Hyperlipidemia Surgical History Tubal ligation status Family History Other Mental health disorder Substance use disorder Social History Housing: House Alcohol intake: current Alcohol intake frequency: a few times a week Patient Tobacco Use Status: Former Tobacco user e-Cigarette/Vaping Use: Never Used Second Hand Smoke Exposure: No service: No Current occupational status: employed Cognitive needs: No Hearing needs: No Vision needs: No Review of Systems Const All systems reviewed & are unremarkable except as noted in HPI and below Physical Exam Const Other: poison dermatitis to face neck anterior chest and bilat forearms w/o secondary infection some periorbital edema LS CTAB Assessment & Plan Assessment & Plan (1) Poison karen dermatitis: Code(s): L23.7 - Allergic contact dermatitis due to plants, except food Plan: . Plan . Medications: New prednisone 5 tabs x 2 days, 4 tabs x 2 days, 3 tabs x 2 days, 2 tabs x 2 days, 1 tab x 2 days and then STOP. 10 mg PO DIRECTED 10 days 30 tabs 0RF Patient Instructions: hydroxyzine at HS, Zyrtex or other OTC antihistamine during the day, ok to cont topical treatments. Advised to take the medication daily with food. If new lesions crop up while on the taper advised to return to the office as we may need to hold the taper and/or extend the taper to prevent recurrence. Advised to cover the areas to prevent spread using something like a Tegaderm. Wash linen to also help prevent spread. Continue to use the aiio-bdf-nhzeedc skin scrubs to help protect the rest of your skin. Do your best to avoid contact. Coding Level of Care Code Est Pt Level 3 (33388) Diagnoses Poison karen dermatitis L23.7
== END 2023-10-22 08:33 | disposition home or self-care (01) ==
PROVIDERS: PCP Nurse Practitioner Family; Visit Provider Nurse Practitioner Family
DX: L23.7 Allergic contact dermatitis due to plants, except food (principal)
CPT/HCPCS: 99213

== ENCOUNTER 2023-11-11 14:53 | Outpatient (AMB) | payer OTHER, SELFPAY ==
--- NOTE | 2023-11-11 14:56 | A.OFFVIS_ITS ---
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 She underwent CT scan due to smoking history and that shows coronary artery calcification. Patient herself does not have any known cardiac issues. She states she is fairly active without any major limitations. No anginal-type symptoms. Not a known hypertensive but has dyslipidemia. Has started statins recently. [facility] Medical History (Updated 08/27/23 @ 17:21 by JEFFREY DarnellNEHEMIAH) Fatty liver Breast implant status Hx of smoking Hyperlipidemia Surgical History Tubal ligation status Family History (Updated 11/11/23 @ 15:02 by Odessa Kunz CMA) Father Congestive heart failure (CHF) Pacemaker Other Mental health disorder Substance use disorder Social History Housing: House Alcohol intake: current Alcohol intake frequency: a few times a week Patient Tobacco Use Status: Former Tobacco user e-Cigarette/Vaping Use: Never Used Second Hand Smoke Exposure: No service: No Current occupational status: employed Cognitive needs: No Hearing needs: No Vision needs: No Review of Systems Const Denies chills, Denies daytime sleepiness, Denies fatigue, Denies fever(s), Denies poor appetite, Denies snoring, Denies stops breathing during sleep, Hu es weakness, Denies weight gain and Denies weight loss Eyes Denies loss of vision ENT Denies dizziness and Reports hearing loss Card Denies chest pain, Denies irregular heart rhythm, Denies claudication, Denies leg edema, Denies lightheadedness, Denies palpitations, Denies dyspnea on exertion and Denies orthopnea Resp Denies cough, Denies excessive phlegm production, Denies dyspnea on exertion, Denies snoring and Denies wheezing GI Denies abdominal pain, Denies hematochezia, Denies change in bowel habits, Denies nausea and Denies vomiting Denies urinary frequency and Denies dysuria Musc Denies arthralgias, Denies muscle weakness, Denies numbness and Denies other Skin/Breast Denies nail changes and Denies rash Neuro Denies Abnormal speech present, Denies dizziness, Denies loss of vision, Denies memory loss, Denies numbness and Denies weakness Psych Denies depression and Denies memory loss Endo Denies fatigue and Denies palpitations Leonides/Lymph Denies easy bruising Aller/Immun Denies wheezing Physical Exam Vital Signs: Last Vital Signs Pulse 73 11/11/23 14:57 BP 104/74 11/11/23 14:57 BMI result Body Mass Index 24.4 Const General: comfortable and no acute distress Orientation/consciousness: patient oriented x3 HEENT Other: Unremarkable Head: Yes normal to inspection Neck Neck: Yes normal visual inspection Chest Chest palpation & inspection: normal inspection of the chest Resp Auscultation: clear to auscultation bilaterally Cardio Palpation: normal PMI Heart sounds: S1 normal heart sound present, S2 normal heart sound present, no gallops, no murmurs and no rubs GI Palpation (GI): Soft to palpation Back/Spine/Pelvis Other: unremarkable Skin General skin exam: no rashes or lesions noted Neuro General: patient oriented x3 Speech: No Abnormal speech present Extrem General: Yes normal to inspection Psych Mental Status: mental status grossly normal Office Procedures EKG Details: EKG with sinus rhythm at 73/Min; no significant ST-T changes and otherwise unremarkable[place] [address]-[id number], Complete Assessment & Plan Assessment & Plan (1) CAD in [place] artery: Code(s): I25.10 - Atherosclerotic heart disease of [place] coronary artery without angina pectoris Category: Medical Plan Ex-smoker, dyslipidemia, coronary artery calcification on chest CT scan. Lung ANGER CONTROL COUNSELOR also describes underlying emphysema. Findings discussed. We can start with an echocardiogram to assess cardiac function. Exercise stress perfusion imaging study to assess for any ischemia. For dyslipidemia, she is on statins. Eventually some follow-up lipids. Follow-up after the testing. Orders: Orders CA stress test Today I25.10 - Atherosclerotic heart disease of [place] coronary artery without angina pectoris, R07.2 - Precordial pain NM cardiolite stress test Today I25.10 - Atherosclerotic heart disease of [place] coronary artery without angina pectoris, R07.2 - Precordial pain CA echo transthoracic complete Today I25.10 - Atherosclerotic heart disease of [place] coronary artery without angina pectoris Coding Level of Care Code New Pt Level 4 (63549) Diagnoses CAD in [place] artery I25.10 CPT Codes EKG - CPT: 96691-Yaikyjevakryrcuqq, Complete ([id number])
[2023-11-11 14:57] VITALS: BP 104/74; PULSE 73; BMI 24.4
== END 2023-11-11 15:25 | disposition home or self-care (01) ==
PROVIDERS: PCP Nurse Practitioner Family; Visit Provider Internal Medicine
DX: I25.10 Atherosclerotic heart disease of native coronary artery without angina pectoris (principal)
CPT/HCPCS: 93010; 99204

== ENCOUNTER → 2023-11-11 14:53 | Outpatient (BNVA) | payer OTHER, SELFPAY | PROVIDERS: PCP Nurse Practitioner Family; Visit Provider Internal Medicine | DX: I25.10 Atherosclerotic heart disease of native coronary artery without angina pectoris (principal) | CPT/HCPCS: 93005; 99202 ==

== ENCOUNTER 2023-12-10 11:21 | Outpatient (AMB) | payer OTHER, SELFPAY ==
--- NOTE | 2023-12-10 11:34 | MHC.OFFVIS ---
Vital Signs 12/10/23 11:35 Height 5 ft 3 in Weight 138 lb 0.15 oz BMI 24.4 BP 124/82 Blood Pressure Location Rt brachial Position Sitting Pulse 74 Pulse Source Pulse Oximeter Pulse Oximetry (%) 97 Oxygen Delivery Method Room Air Intake Visit Reasons: Colonoscopy Screening Intake Note: Rosalia presents in office today for a colo s/p scrn. CC; Pt reports hx of previous colo approximately 5 years ago. Pt denies any new sx or concerns at this time that would otherwise warrant a colo. Pt does report previous hx of polyps during their last colo. Pt reports last colo was with [facility]. Special Needs Librarian Required: No Allergies No Known Allergies Allergy (Verified 12/10/23 11:39) HPI HPI Colonoscopy Screening: Details: 57 year old? female with past medical history of GERD, pulmonale nodule, hyperlipidemia, fatty liver, osteopenia, CAD, history of smoking, COPD, osteoarthritis is here today for pre colonoscopy screening.? Patient was sent to us by her PCP.? Last colonoscopy 5 years ago.? Patient denies any gastrointestinal symptoms in the past or at present.? Denies any personal or family history of gastrointestinal disease, colon polyps, or CRC.? Denies history of difficulty with sedation or anesthesia in the past.? Negative for history of sleep apnea.? Denies any history of cardiac, renal, pulmonary, or hepatic disease.?? However patient was found to CAD and is going for stress test, echo also was ordered by supply room clerk. Patient has a cardiology appointment in December. Message sent to chief school finance officer for pre colonoscopy clearance. Patient has a long history of EtOH, currently she drinks 3-4 times a week. Occasional acid reflux. Patient will need to be sent for endoscopy as well to rule out varices. No history of infectious? diseases like hepatitis A, B, C, HIV or tuberculosis.? Patient is not on any anticoagulation PFSH Medical History Fatty liver Breast implant status Hx of smoking Hyperlipidemia Surgical History Tubal ligation status Family History Father Congestive heart failure (CHF) Pacemaker Other Mental health disorder Substance use disorder Social History Housing: House Alcohol intake: current Alcohol intake frequency: a few times a week Patient Tobacco Use Status: Former Tobacco user e-Cigarette/Vaping Use: Never Used Second Hand Smoke Exposure: No service: No Current occupational status: employed Cognitive needs: No Hearing needs: No Vision needs: No Review of Systems Const Denies weight gain and Denies weight loss ENT Reports no additional complaints, Denies dysphagia and Denies odynophagia Card Reports no additional complaints Resp Reports no additional complaints GI Denies abdominal pain, Denies belching, Denies melena, Denies bloating, Denies change in bowel habits, Denies dysphagia, Denies excessive flatus, Denies dyspepsia, Reports heartburn (Occasional), Denies diarrhea, Denies loose stools, Denies nausea, Denies odynophagia and Denies vomiting Musc Reports no additional complaints Neuro Reports no additional complaints Psych Reports no additional complaints Endo Reports no additional complaints Physical Exam Vital Signs: Last Vital Signs Pulse 74 12/10/23 11:35 BP 124/82 12/10/23 11:35 Pulse Ox 97 12/10/23 11:35 Oxygen Delivery Method Room Air 12/10/23 11:35 BMI result Body Mass Index 24.4 Const General: healthy appearing, no acute distress and well developed Nutritional Appearance: well nourished Orientation/consciousness: patient oriented x3 Resp Effort & Inspection: normal respiratory effort, able to speak in complete sentences, no tracheal deviation and symmetric chest movement Auscultation: clear to auscultation bilaterally Cardio Rate: regular rate GI Inspection: Yes normal to inspection and No distended Palpation (GI): Soft to palpation, not firm, nontender and No hepatosplenomegaly present Auscultation: normal bowel sounds General: Yes no CVA tenderness Back/Spine/Pelvis Back: no CVA tenderness Skin General skin exam: elasticity normal, turgor normal and dry skin Neuro General: patient oriented x3 Psych Appearance: grossly normal Mental Status: mental status grossly normal Assessment & Plan Assessment & Plan (1) Screen for colon cancer: Code(s): Z12.11 - Encounter for screening for malignant neoplasm of colon (2) Fatty liver: Code(s): K76.0 - Fatty (change of) liver, not elsewhere classified Category: Medical (3) GERD (gastroesophageal reflux disease): Code(s): K21.9 - Gastro-esophageal reflux disease without esophagitis Qualifiers: Esophagitis presence: esophagitis presence not specified Qualified Code(s): K21.9 - Gastro-esophageal reflux disease without esophagitis Plan Patient denies any GI, cardiac or respiratory symptoms.? Denies any issues with anesthesia in the past.? Denies any history of sleep apnea.? No history infectious diseases in the past or present.? Not on any anticoagulation therapy.? No family or personal history of colon cancer. Long history of EtOH in the past, currently patient drinks 3 to 4 times a week. Occasional reflux. Will send patient? for upper endoscopy to rule out varices, esophagitis, Cuellar's, gastritis. Patient denies melena, hematochezia, unintentional weight loss or ribbon like stools.? Discussed at length the pre-procedure,? prep, diet & medications as well as what to expect prior, during and after the procedure.?? Stressed the importance of good bowel prep.? Recommended the use of Vaseline or Calmoseptine OTC & baby wipes with bowel movements to promote comfort.? ?Patient verbalizes understanding and agrees to plan of care.? She was given the opportunity to ask questions and all questions answered.? We will see her after the procedure.? Medications: New bisacodyl (Dulcolax (bisacodyl)) take 4 tabs at noon the day before your colonoscopy 20 mg (4 x 5 mg) PO ONCE 1 day 4 tabs 0RF Z12.11 - Encounter for screening for malignant neoplasm of colon polyethylene glycol 3350 (Miralax) As directed by gastroenterology department at [facility] 238 grams PO ONCE 238 grams 0RF Z12.11 - Encounter for screening for malignant neoplasm of colon Coding Level of Care Code New Pt Level 3 (39016) Diagnoses Screen for colon cancer Z12.11 Fatty liver K76.0 Gastroesophageal reflux disease, unspecified whether esophagitis present K21.9 Esophagitis presence: esophagitis presence not specified Time Spent (min) 40 Comment 30 minutes spent with patient and additional 10 minutes spent reviewing her records
[2023-12-10 11:35] VITALS: BP 124/82; PULSE 74; O2SAT 97; BMI 24.4
== END 2023-12-10 12:46 | disposition home or self-care (01) ==
PROVIDERS: PCP Nurse Practitioner Family; Visit Provider Nurse Practitioner Family
DX: Z12.11 Encounter for screening for malignant neoplasm of colon (principal); K76.0 Fatty (change of) liver, not elsewhere classified; K21.9 Gastro-esophageal reflux disease without esophagitis; Z01.818 Encounter for other preprocedural examination
CPT/HCPCS: 99203

== ENCOUNTER → 2023-12-10 11:21 | Outpatient (BNVA) | payer OTHER, SELFPAY | PROVIDERS: PCP Nurse Practitioner Family; Visit Provider Nurse Practitioner Family | DX: K21.9 Gastro-esophageal reflux disease without esophagitis (principal); K76.0 Fatty (change of) liver, not elsewhere classified; E78.5 Hyperlipidemia, unspecified | CPT/HCPCS: 99202 ==

== ENCOUNTER 2024-01-05 10:17 | Outpatient (AMB) | payer OTHER, SELFPAY ==
--- NOTE | 2024-01-05 10:56 | MHC.OFFWIV ---
Intake Vital Signs 01/05/24 10:59 Height 5 ft 3 in Weight 138 lb BMI 24.4 BP 122/70 Blood Pressure Location Rt brachial Position Sitting Respiration 15 Pulse 71 Pulse Source Pulse Oximeter Pulse Oximetry (%) 97 Oxygen Delivery Method Room Air Intake Visit Reasons: est/ pinched nerve on right upper back Intake Note: patient complaining of severe pain upper right side x 1 month but has gotten worse in the last 2 weeks Patient Tobacco Use Status: Former Tobacco user Allergies No Known Allergies Allergy (Verified 01/05/24 11:33) Medication List - Last Reconciled 01/05/24 by Jacqueline Colorado, CONCRETE STONE FABRICATING SUPERVISOR- albuterol sulfate 90 mcg/actuation (Ventolin HFA) 2 puffs inhalation Q4-6H PRN atorvastatin 40 mg PO BEDTIME bisacodyl (Dulcolax (bisacodyl)) 20 mg (4 x 5 mg) PO ONCE 1 day hydroxyzine HCl 25 mg PO BID PRN meloxicam 15 mg PO DAILY polyethylene glycol 3350 (Miralax) 238 grams PO ONCE HPI HPI Comments History of Present Illness Details 58-year-old female with fatty liver disease, former smoker, hyperlipidemia, COPD, osteoarthritis, CAD, osteopenia Status post breast implants, tubal ligation Here today with complaints of progressive pain in the posterior right upper back/shoulder blade area that started about 1 month ago. She reports that she was in her normal state of health, working often on the computer looking for a job, wonders if she had poor posture as she denies any overt injury outside of this prior to the onset of her pain. She reports that rolling around in bed, lifting her head and movement of her arm and neck worsen the pain. The pain is intermittent. She has some days that she has pain for a period other times she has some radiation into her arm with some numbness and tingling in her right forearm that comes and goes. She has meloxicam that she uses for generalized joint pain, she does not take this every day, she did take it today to help with the pain is unsure if it really helps or not. She will be starting a physically demanding job at the [employer] tomorrow. Worries about this pain affecting her ability to perform her job duties. She reports that the pain feels muscular. She has tried stretching and exercise which sometimes makes it better and other times makes it worse. She is also active with chiropractic medicine and has an appointment on Friday for evaluation and treatment of this which has been quite successful in the past. Otherwise she denies any red flag symptoms. 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 [employer] office in [place]. She is also here to follow up on her CT scan results that were done in September to evaluate a cystic lesion in her left upper lobe. The left upper lobe cystic lesion was noted on CT imaging back in June of 2023 a done by the lung cancer screening program. Was recommended that she have a repeat done in 3 months. I ordered this repeat which was completed in September. I asked pulmonology if they are actively treating this. Reports that she is only in the lung cancer screening program for imaging and that she is not active with pulmonology and has not been seen by a provider. According to the lung cancer screening program she is due for a repeat low-dose CT scan at the end of this month. Discuss findings with the patient today. There seems to be some characteristic changes associated with the left upper lobe cyst. Recommend referral to pulmonology for further evaluation and management. She can discuss repeat low-dose CT scan imaging for the lung cancer screening program scheduled this month with pulmonology to see if this is necessary or not. The patient was agreeable with this plan. Exam Awake alert oriented, no acute distress PERRLA, EOMI Neck full range of motion, has pain in her posterior upper back, right paraspinal when looking to the right. She is able to move bilateral upper extremities with normal strength and tone. She does report some pulling sensation to the right paraspinal upper back with these motions. She has no cervical spinal tenderness. No tenderness over the shoulder joint or the scapula or the clavicle on the right. There is no redness, edema or obvious deformity of the right shoulder. There is no costochondral tenderness. Neurovasc intact BUE Plan: To treat the pain that she is having, prednisone for 5 days. Take with food. Do not take meloxicam or any other [id number] NSAIDs while taking this medication. Short sparing use of muscle relaxer. Can take half to 1 tablet as needed. Continue supportive care such as heat, ice, gentle stretching and exercises along with a follow up with chiropractic medicine. Educated reasons to return to the office. In regards to the left upper lobe cyst, the plan will be to refer her to pulmonology for further evaluation and treatment. Total time spent caring for the patient today was 33 minutes. This includes time spent before the visit reviewing the chart, time spent during the visit, and time spent after the visit on documentation This note is constructed using voice recognition software. While every effort has been made to ensure accuracy in high school computer science teacher, still errors may have been included Sometimes, these errors may affect the content or meaning of the given sentence . [facility] Medical History Fatty liver Breast implant status Hx of smoking Hyperlipidemia Surgical History Tubal ligation status Family History Father Congestive heart failure (CHF) Pacemaker Other Mental health disorder Substance use disorder Social History Housing: House Alcohol intake: current Alcohol intake frequency: a few times a week Patient Tobacco Use Status: Former Tobacco user e-Cigarette/Vaping Use: Never Used Second Hand Smoke Exposure: No service: No Current occupational status: employed Cognitive needs: No Hearing needs: No Vision needs: No Physical Exam Vital Signs: Last Vital Signs Pulse 71 01/05/24 10:59 Resp 15 01/05/24 10:59 BP 122/70 01/05/24 10:59 Pulse Ox 97 01/05/24 10:59 Oxygen Delivery Method Room Air 01/05/24 10:59 BMI result Body Mass Index 24.4 Results Reviewed Results Reviewed: [address] [address] [address] Scan Report Signed Patient: Rosalia Parrish MR#: [id number] : 1965 Acct:[id number] Age/Sex: 57 / F ADM Date: 10/20/23 Loc: HO.CT Attending Dr: Jacqueline AUSTIN Ordering Physician: Jacqueline Colorado Date of Service: 10/20/23 Procedure(s): CT chest wo IV con Accession Number(s): [id number] cc: Jacqueline Colorado CONCRETE STONE FABRICATING SUPERVISOR-BC~ EXAMINATION: CT CHEST WITHOUT CONTRAST CLINICAL INFORMATION: Follow-up nodules COMPARISON: 07/18/2023 TECHNIQUE: Multidetector volumetric CT imaging of the chest was done. Axial MIP volume rendering provided. Sagittal and coronal reformatted images were obtained. This CT examination was performed using dose optimization techniques as appropriate, variously including the following: *Automated exposure control *Adjustment of mA and/or kV according to patient size (this includes techniques or standardized protocols for targeted exams where dose is matched to indication/reason for exam; i.e. extremities or head) *Use of iterative reconstruction technique DLP: 117 mGy-cm FINDINGS: LUNGS: Left upper lobe mixed cystic/solid nodule measures 1.2 x 2.1 cm with the solid component measuring 3 mm (5:147. Moderate background emphysema. Left lower lobe 3 mm nodule (5:398), unchanged. Central airways are PLEURA: No pleural effusion. MEDIASTINUM: No cardiomegaly. Aorta and pulmonary artery are normal in caliber. No mediastinal adenopathy. No hilar lymphadenopathy. CORONARY ARTERY CALCIFICATION: Coronary artery calcifications are present. CHEST WALL/AXILLA: No axillary or internal mammary lymphadenopathy. Bilateral breast implants are noted. UPPER ABDOMEN: Unremarkable. OSSEOUS STRUCTURES: Unremarkable. CT/CT chest wo IV con IMPRESSION: Left upper lobe mixed cystic/solid nodule measures 1.2 x 2.1 cm with the solid component measuring 3 mm. According to the UPDATED 2017 Fleischner Society recommendations, the advised followup imaging for a single part solid nodule measuring 6 mm or greater is: CT at 3-6 months to confirm persistence. If unchanged and solid component remains <6 mm, annual CT should be performed for 5 years. Dictated By: Sophia Lee MD Signed By: <Electronically signed by Sophia Lee MD in OV> 12/02/23 1946 DD/ 1050 TD/TT: Account Support Associate: Assessment & Plan Assessment & Plan (1) Spasm of back muscles: Code(s): M62.830 - Muscle spasm of back Plan: . (2) Pulmonary nodule: Comment: 07/18/23 incidental finding : [id number] emphysematous changes are present. Bronchial wall thickening is seen. Some tiny micronodules are seen at the left base, the largest 3 mm (5:285 and 289). In the left upper lobe laterally, there is a thick-walled cyst measuring about 1.67 cm in size. The medial border has a rounded lobular area measuring 6 x 2 mm (see blanco images which include off axis axial imaging). Plan: repeat CT scan 09/2023 done:IMPRESSION: Left upper lobe mixed cystic/solid nodule measures 1.2 x 2.1 cm with the solid component measuring 3 mm. According to the UPDATED 2017 Fleischner Society recommendations, the advised followup imaging for a single part solid nodule measuring 6 mm or greater is: CT at 3-6 months to confirm persistence. If unchanged and solid component remains <6 mm, annual CT should be performed for 5 years. Code(s): R91.1 - Solitary pulmonary nodule Plan: . (3) Lung cyst: Comment: see lung nodule plan of care Code(s): J98.4 - Other disorders of lung Plan: . Orders: Referrals Pulmonology Referral J98.4 - Other disorders of lung, R91.1 - Solitary pulmonary nodule Medications: New prednisone 50 mg PO DAILY 5 tabs 0RF 5 days tizanidine (Zanaflex) 4 mg PO BID PRN 14 tabs 0RF muscle spasticity Coding Level of Care Code Est Pt Level 4 (51791) Diagnoses Spasm of back muscles M62.830 Pulmonary nodule R91.1 Lung cyst J98.4
[2024-01-05 10:59] VITALS: BP 122/70; PULSE 71; RESP 15; O2SAT 97; BMI 24.4
== END 2024-01-05 11:51 | disposition home or self-care (01) ==
PROVIDERS: PCP Nurse Practitioner Family; Visit Provider Nurse Practitioner Family
DX: M62.830 Muscle spasm of back (principal); R91.1 Solitary pulmonary nodule; J98.4 Other disorders of lung
CPT/HCPCS: 99214

== ENCOUNTER → 2024-01-27 07:47 | Outpatient (REF) | payer OTHER, SELFPAY ==
--- NOTE | 2024-01-27 07:49 | CA_ITS ---
Transthoracic Echocardiogram Amended Patient (Last, First, Middle): Rosalia Parrish, Gender: Female Date of : 1965 Age: 58 Procedure Date: 01/27/2024 Procedure Type: Transthoracic Echocardiogram Location: OP Height: 160.02 cm Weight: 62.6 kg BSA: 1.65 m2 Heart Rate: 72 bpm BP: 128 / 76 mmHg Casting And Pasting Supervisor: SB Referring MD: Vick Stevenson MD Symptoms: I25.10 - Atherosclerotic heart disease of [place] coronary artery without... Study Quality: Adequate ECG Rhythm: Sinus Conclusions: - The left ventricular systolic function is normal. The calculated ejection fraction is 67% by biplane method. - No obvious valvular pathology seen on this study. Findings Left Ventricle Normal left ventricular cavity size. There is normal left ventricular wall thickness. The left ventricular systolic function is normal. The calculated ejection fraction is 67% by biplane method. There is no evidence of regional wall motion abnormalities. Diastolic function is normal for age. Right Ventricle Normal right ventricular cavity size and systolic function. Atria Both atria are normal in size. Aortic Valve There is a normal trileaflet aortic valve. There is no aortic valve stenosis. There is no aortic valve regurgitation. Mitral Valve The mitral valve appears normal. There is trace mitral valve regurgitation. There is no mitral valve stenosis. Pulmonic Valve The pulmonic valve is likely normal. Tricuspid Valve Normal tricuspid valve structure. There is trace tricuspid valve regurgitation. There is no evidence of pulmonary hypertension. Great Vessels The asc aorta is normal in size. Venous The inferior vena cava is normal in size and collapses greater than 50% with inspiration. Pericardium/Pleural There is no evidence of pericardial effusion. Prior Study Comparison No prior study available for comparison. Recommendations, Care & Conclusions No obvious valvular pathology seen on this study. Measurements 2D Linear Measurements IVSd: 0.74 0.6-0.9/0.6-1.0 cm LVIDd: 4.79 3.9-5.3/4.2-5.9 cm LVIDd Index: 2.90 2.4-3.2/2.2-3.1 cm/m2 LVIDs: 3.05 2.0-3.6 cm LVPWd: 0.61 0.7-1.1 cm LA Diam: 3.70 2.7-3.8/3.0-4.0 cm LAIDs Index: 2.24 1.5-2.3 cm/m2 LV Mass: 126.32 67-162/88-224 g LV Mass Index: 76.56 43-95/49-115 g/m2 LVOT Diam: 2.00 3.0+(-)1.3 cm 2D Volumes LA Vol: 17.10 2D Systolic Function EF 4C: 62.60 >55% EF 2C: 72.60 >55% EF BiP: 67.20 >55% Mitral Valve MV Pk E: 0.85 MV PK A: 0.84 MV Decel Time: 182.00 E/A: 1.00 E'Lateral: 8.27 E'Medial: 8.05 E/E' Med: 10.50 E/E' Lat: 10.30 PHT: 53.00 MVA PHT: 4.15 Decel [place]: 4.65 Aortic Valve AoV Pk Egt: 1.17 AoV Pk Grad: 5.00 MARIA VICTORIA: 2.85 LVOT LVOT Pk Get: 1.10 LVOT Mn Get: 0.73 LVOT VTI: 0.24 LVOT Pk Grad: 5.00 LVOT Mn Grad: 3.00 LVOT Diam: 2.00 LVOT Area: 3.14 Diastolic Function MV Pk E: 0.85 MV Pk A: 0.84 E/A: 1.00 E'Medial: 8.05 E/E' Med: 10.50 E' Laterial: 8.27 E/E' Lat: 10.30 Right Ventricle TAPSE (mm): 19.50 TVS' Get: 11.10 Tricuspid Valve TR Pk Get: 2.04 TR Pk Grad: 17.00 RA Press: 3.00 RVSP: 20.00 Great Vessels Aorta Sinus of Valsalva: 3.10 2.0-3.5 cm Ao Asc: 3.20 2.1-3.4 cm Pulmonary Veins Pulm Vein S/D 1.20 Pulmonary Valve PV Pk Get: 0.89 Peak PV Grad: 3.00 Updated in Other Vendor System with Status of Final Vick Stevenson MD electronically signed on 01/28/2024 10:15:08 AM with status of Final
== END ==
LOC: HO.CARD 07:47
PROVIDERS: PCP Nurse Practitioner Family; Visit Provider Internal Medicine
DX: I25.10 Atherosclerotic heart disease of native coronary artery without angina pectoris (principal)
CPT/HCPCS: 93306; 99212

== ENCOUNTER → 2024-01-27 07:49 | Outpatient (BNV) | payer OTHER, SELFPAY | PROVIDERS: PCP Nurse Practitioner Family; Visit Provider Internal Medicine | DX: I25.10 Atherosclerotic heart disease of native coronary artery without angina pectoris (principal) | CPT/HCPCS: 93306 ==

== ENCOUNTER 2024-01-27 10:21 | Outpatient (AMB) | payer OTHER, SELFPAY ==
[2024-01-27 10:24] VITALS: BP 118/64; PULSE 76; O2SAT 97; BMI 24.4
--- NOTE | 2024-01-27 10:24 | MHC.OFFVIS ---
Vital Signs 01/27/24 10:24 Height 5 ft 3 in Weight 137 lb 8 oz BMI 24.4 BP 118/64 Blood Pressure Location Lt brachial Position Sitting Pulse 76 Pulse Source Pulse Oximeter Pulse Oximetry (%) 97 Oxygen Delivery Method Room Air Intake Visit Reasons: Abnormal CT scan Allergies No Known Allergies Allergy (Verified 01/27/24 10:28) HPI HPI Abnormal CT scan: Details: Rosalia is a pleasant 58 year old female, former smoker, with 15 pyh quit 10 years ago, with underlying COPD, hyperlipidemia, osteoarthritis, CAD, and osteopenia. She was referred by PCP after abnormal finding on chest CT. She currently denies any respiratory symptoms, reports minimal symptoms with humidity. She denies any history of asthma. She reports sister with asthma, otherwise no pertinent family history. 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 She denies seasonal allergies. Of note, she is a part of the lung screening program and this cystic finding of the [place] has been followed over the last few months. The last LDCT recommended a 3 month follow up however after reviewing at multidiscplinary conference, it was downgraded to a RADS 3 with recommendation for a 6 month follow up which is scheduled in March. Patient reports this abnormality has been present for 10+ years, with minimal changes. Will request prior imaging from [facility]. Reviewed LDCT report from 2022 which noted scarring and pneumatocele with nodular scarring at the lateral left upper lobe is unchanged compared to 2020 LDCT. [facility] Medical History (Updated 02/17/24 @ 14:15 by Tegan Morgan NP) Personal history of nicotine dependence Fatty liver Hyperlipidemia Surgical History (Updated 01/06/24 @ 11:07 by Kelsey Lopez PA-C) History of tubal ligation History of breast implant Family History Father Congestive heart failure (CHF) Pacemaker Other Mental health disorder Substance use disorder Social History Housing: House Alcohol intake: current Alcohol intake frequency: a few times a week Patient Tobacco Use Status: Former Tobacco user e-Cigarette/Vaping Use: Never Used Second Hand Smoke Exposure: No service: No Current occupational status: employed Cognitive needs: No Hearing needs: No Vision needs: No Physical Exam Vital Signs: Last Vital Signs Pulse 76 01/27/24 10:24 BP 118/64 01/27/24 10:24 Pulse Ox 97 01/27/24 10:24 Oxygen Delivery Method Room Air 01/27/24 10:24 BMI result Body Mass Index 24.4 Results Reviewed Results Reviewed: [address] [address] [address] Scan Report Signed Patient: Rosalia Parrish MR#: [id number] : 1965 Acct:[id number] Age/Sex: 57 / F ADM Date: 10/20/23 Loc: HO.CT Attending Dr: Jacqueline AUSTIN Ordering Physician: Jacqueline [place] Date of Service: 10/20/23 Procedure(s): CT chest wo IV con Accession Number(s): [id number] cc: Jacqueline [place]~ EXAMINATION: CT CHEST WITHOUT CONTRAST CLINICAL INFORMATION: Follow-up nodules COMPARISON: 07/18/2023 TECHNIQUE: Multidetector volumetric CT imaging of the chest was done. Axial MIP volume rendering provided. Sagittal and coronal reformatted images were obtained. This CT examination was performed using dose optimization techniques as appropriate, variously including the following: *Automated exposure control *Adjustment of mA and/or kV according to patient size (this includes techniques or standardized protocols for targeted exams where dose is matched to indication/reason for exam; i.e. extremities or head) *Use of iterative reconstruction technique DLP: 117 mGy-cm FINDINGS: LUNGS: Left upper lobe mixed cystic/solid nodule measures 1.2 x 2.1 cm with the solid component measuring 3 mm (5:147. Moderate background emphysema. Left lower lobe 3 mm nodule (5:398), unchanged. Central airways are PLEURA: No pleural effusion. MEDIASTINUM: No cardiomegaly. Aorta and pulmonary artery are normal in caliber. No mediastinal adenopathy. No hilar lymphadenopathy. CORONARY ARTERY CALCIFICATION: Coronary artery calcifications are present. CHEST WALL/AXILLA: No axillary or internal mammary lymphadenopathy. Bilateral breast implants are noted. UPPER ABDOMEN: Unremarkable. OSSEOUS STRUCTURES: Unremarkable. CT/CT chest wo IV con IMPRESSION: Left upper lobe mixed cystic/solid nodule measures 1.2 x 2.1 cm with the solid component measuring 3 mm. According to the UPDATED 2017 Fleischner Society recommendations, the advised followup imaging for a single part solid nodule measuring 6 mm or greater is: CT at 3-6 months to confirm persistence. If unchanged and solid component remains <6 mm, annual CT should be performed for 5 years. Dictated By: Sophia Lee MD Signed By: <Electronically signed by Sophia Lee MD in OV> 12/02/23 1946 DD/ 1050 TD/TT: Central Office Inspector: RESULT: CT Chest LDCT Lung Program CT Chest LDCT Lung Program Reason: Other:; LDCT LUNG CANCER SCREENING PROGRAM, FORMER SMOKER, QUIT AT AGE 46, 30 PK YR HX; Clinical Question(s): Other:; Special Instructions: BOOK [place] [address] [place] [address] BOOK AFTER 04 23 2022 CALL [phone] IN THE LAST 12 MONTHS NO LUNG CA OR SIGNS AND SYMPTOMS OF LUNG CA Visit type: Annual Screening TECHNIQUE: Low-dose helical CT of the chest without IV contrast (Adult Lung Cancer Screening) protocol was performed. Coronal reformats were obtained. Weight-based protocol using automatic tube modulation was used to optimize exposure parameters. COMPARISON: 04/23/2021 FINDINGS: LUNG NODULES: RIGHT lung: No new nodules. Less than 4 mm nodules are unchanged, for example superior segment left lower lobe 2 mm nodule series 3 image 42. LEFT lung: No new nodules. Unchanged 2 mm granuloma in the left lower lobe in series 3 image 49. OTHER FINDINGS: Trachea and Airways: Patent without evidence of tracheal or endobronchial lesion. Lungs and Pleura: Moderate upper lung emphysema. Scarring and pneumatocele with nodular scarring at the lateral left upper lobe is unchanged. No pneumothorax or pleural effusion. Mediastinum and Lymph nodes: No enlarged lymph nodes. Esophagus is unremarkable. Aorta: Ectasia of the thoracic aorta without aneurysmal dilatation Minimal arch atherosclerosis Heart: Normal cardiac size. No pericardial effusion. Moderate coronary artery calcifications. Chest wall and Soft tissues: Bilateral breast implants. No axillary adenopathy. Diaphragm and Upper Abdomen: No acute abnormality. Mild diffuse hepatic steatosis. Bones: No acute or suspicious osseous abnormality. IMPRESSION: LungRad Category: 2 Benign Appearance or Behavior. Nodules with a very low likelihood of becoming a clinically active cancer due to size or lack of growth. Continue annual screening with LDCT in 12 months. Categorization based on Lung-RADS 2022 criteria. [email or web address] WSN: [id number] Ordering Physician: Ramya Lucero Assessment & Plan Assessment & Plan (1) COPD (chronic obstructive pulmonary disease): Code(s): J44.9 - Chronic obstructive pulmonary disease, unspecified Category: Medical Qualifiers: COPD type: emphysema Emphysema type: panlobular Qualified Code(s): J43.1 - Panlobular emphysema (2) Lung cyst: Code(s): J98.4 - Other disorders of lung Category: Medical (3) Pulmonary nodule: Code(s): R91.1 - Solitary pulmonary nodule Category: Medical (4) Personal history of nicotine dependence: Comment: (onset 13yo, 1ppd x 33yrs, 30pyh - quit 2012) Code(s): Z87.891 - Personal history of nicotine dependence Category: Medical Plan At this time, Rosalia reports minimal respiratory symptoms and has been well managed with albuterol PRN. Advised to continue. She is aware to call if symptoms worsen and will obtain PFT. In regards to abnormal chest CT findings, patient has had left upper lobe cystic nodule reportedly for 10+ years. Prior imaging through [facility]. Will obtain prior images to assess stability. At this time, patient has upcoming CT chest appointment scheduled in March. Advised to keep for now, however if cystic lung nodule stable from prior images, will likely cancel and continue annual scans. All questions were answered and patient is in agreement of plan. Will follow-up to review results or sooner if needed. Coding Level of Care Code New Pt Level 4 (60162) Diagnoses Panlobular emphysema J43.1 COPD type: emphysema Emphysema type: panlobular Lung cyst J98.4 Pulmonary nodule R91.1 Personal history of nicotine dependence Z87.891
== END 2024-01-27 11:09 | disposition home or self-care (01) ==
PROVIDERS: PCP Nurse Practitioner Family; Referring Provider Nurse Practitioner Family; Visit Provider Nurse Practitioner Family
DX: J43.1 Panlobular emphysema (principal); J98.4 Other disorders of lung; R91.1 Solitary pulmonary nodule; Z87.891 Personal history of nicotine dependence
CPT/HCPCS: 99214

== ENCOUNTER 2024-03-08 09:07 | Outpatient (REF) | payer OTHER, SELFPAY ==
[2024-03-08 11:34] LABS: Alanine Aminotransferase 23 U/L (0-31); Albumin Level 4.2 g/dL (3.5-5.0); Alkaline Phosphatase 64 U/L (39-117); Anion Gap 11 (12-20); Aspartate Amino Transferase 23 U/L (5-31); Bilirubin Total 0.7 mg/dL (0.0-1.0); Blood Urea Nitrogen 13 mg/dL (9-16); Calcium 9.1 mg/dL (8.4-10.2); Carbon Dioxide 26 mmol/L (22-29); Chloride 107 mmol/L (96-108); Cholesterol 273 mg/dL (<200); Estimated Glomerular Filt Rate > 60; Glucose Fasting 106 mg/dL (60-99); HDL Cholesterol 83 mg/dL (>40); LDL Cholesterol Calculated 161 mg/dL (<100); Potassium 3.8 mmol/L (3.3-5.1); Sodium 140 mmol/L (135-145); Total Protein 6.9 g/dL (6.5-8.0); Triglycerides 148 mg/dL (<150)
== END 2024-03-08 09:08 | disposition home or self-care (01) ==
LOC: HO.WFDLDS 09:07
PROVIDERS: Visit Provider Nurse Practitioner Family
DX: E78.2 Mixed hyperlipidemia (principal)
CPT/HCPCS: 36415; 80053; 80061

== ENCOUNTER 2024-03-12 12:02 | Outpatient (AMB) | payer OTHER, SELFPAY ==
--- NOTE | 2024-03-12 12:09 | MHC.PC.OV ---
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: No Is last menstrual period known: No Post menopausal: No Patient : No Allergies No Known Allergies Allergy (Verified 03/12/24 12:35) Medication List - Last Reconciled 03/12/24 by Jacqueline Colorado, ABSTRACTER- albuterol sulfate 90 mcg/actuation (Ventolin HFA) 2 puffs inhalation Q4-6H PRN atorvastatin 40 mg PO BEDTIME bisacodyl (Dulcolax (bisacodyl)) 20 mg (4 x 5 mg) PO ONCE 1 day hydroxyzine HCl 25 mg PO BID PRN meloxicam 15 mg PO DAILY polyethylene glycol 3350 (Miralax) 238 grams PO ONCE Tobacco use date assessed: 03/12/24 Dental Screening Dental Screen Date: 03/12/24 Did you have a dental visit in the last 12 months?: Yes Did you have a dental problem in the last 6 months where you did not have access to dental care?: No Was dental information given to patient?: Patient has dentist HPI HPI Comments History of Present Illness Details 58-year-old female with fatty liver disease, former smoker, hyperlipidemia, COPD, osteoarthritis, CAD, osteopenia, emphysema, hearing loss Status post breast implants, tubal ligation Social: working at [employer] 4 days/week, will be looking for new job. Health maintenance [facility] smear summer [facility] Mammogram 06/09/2023 Colonoscopy 2017, polyps repeat in 5 years (2022) Next one scheduled Apr 2024 DEXA 06/2023 Osteopenia based on the lowest T-score value of -1.9 in the femoral neck applying World Health Organization criteria. 2. 10-YEAR FRACTURE RISK PREDICTION, FRAX: Major osteoporotic fracture (clinical spine, forearm, hip or shoulder) 14.7%. Hip fracture 1.8%. (repeat 2028) Tdap 2023 Flu today [facility] - had echo done. Was ordered stress test, did not make it before insurance referral . Does not feel like needs this @ this time. GI Cards Fidel Naidu felt worse after treatments in December. Here today for CPE Has new insurance, this does not cover diagnostics. She is managed by [facility] w/ a plan, Next LDCT scan 03/2024 see message in chart 01/20/24 if more info needed. She does not plan to have this done at this time. >> Message sent to [facility] [employer] w/ update. Stopped taking statin. Forgot. Did not have side effects. Willing to restart. See labs below Infrequent use of inhaler Meloxicam works well for pain Hydroxyzine working well. Osteopenia - not taking Ca or D. Optho exam 2023, has glasses, does not use. SYCUAN - worse. Would like hearing test done. Skin - picks at back of neck/hairline w/ anxiety. AK above lip on right side, developed in last 7 months, no worse since onset. Reviewed w/ her Labs from 03/08/2024 show normal electrolytes and renal function, fasting glucose of 106, was 99, normal LFTs, lipid profile is actually worse total cholesterol is now 273, LDL is 161, was 162, HDL is improved however at 83, this was 68 Plan Refill all meds Restart atorvastatin at same dose Start Ca+D, repeat DEXA 5 years Refer to Derm Refer for hearing test RTO 6 mo fu lipids, repeat labs 1 week before; RTO sooner PRN PFSH Medical History (Updated 03/12/24 @ 12:47 by Jacqueline Colorado, ABSTRACTER-) Personal history of nicotine dependence Fatty liver Hyperlipidemia Surgical History (Updated 01/06/24 @ 11:07 by Kelsey Lopez PA-C) History of tubal ligation History of breast implant Family History Father Congestive heart failure (CHF) Pacemaker Other Mental health disorder Substance use disorder Social History Housing: House Alcohol intake: current Alcohol intake frequency: a few times a week Patient Tobacco Use Status: Former Tobacco user e-Cigarette/Vaping Use: Never Used Second Hand Smoke Exposure: No service: No Current occupational status: employed Cognitive needs: No Hearing needs: No Vision needs: No Questionnaire PHQ-9 Over the last 2 weeks, how often have you been bothered by any of the following problems? 1. Little interest or pleasure in doing things: several days 2. Feeling down, depressed, or hopeless: several days 3. Trouble falling or staying asleep, or sleeping too much: several days 4. Feeling tired or having little energy: several days 5. Poor appetite or overeating: not at all 6. Feeling bad about yourself - or that you are a failure or have let yourself or your family down: several days 7. Trouble concentrating on things, such as reading the newspaper or watching television: several days 8. Moving or speaking so slowly that other people could have noticed. Or the opposite - being so fidgety or restless that you have been moving around a lot more than usual: not at all 9. Thoughts that you would be better off or of hurting yourself in some way: not at all Total score: 6 84707 - PHQ-9 Billing: Yes Source: Developed by Drs. Teodoro Hsieh, Daisha Valenzuela, Roberto Corona and colleagues, with an educational rebecca from [employer]. Thrive Questionnaire Date Thrive assessed: 03/12/24 I am a: Patient What is your living situation today?: I have a steady place to live Within the past 12 months, did the food you bought not last and you didn't have the money to get more?: Never true Within the past 12 months, did you worry whether your food would run out before you got money to buy more?: Never true Do you have trouble paying for medicines?: No Do you have trouble getting transportation to medical appointments?: No Do you have trouble paying your heating and electricity bill?: No Do you have trouble taking care of your child, family member or friend?: No Do you have trouble with day-to-day activities such as bathing, preparing meals, shopping, managing finances, etc.?: No Are you currently unemployed and looking for a job?: No Are you interested in more education?: I choose not to answer this question Please select the resources that you would like help with: None Currently or been in a relationship where the following occur: No concerns reported THRIVE Score: 0 AUDIT C Alcohol Use Questionnaire (AUDIT-C) 1. How often do you have a drink containing alcohol?: 2-3 times a week 2. How many drinks containing alcohol do you have on a typical day when you are drinking?: 3 or 4 3. How often do you have six or more drinks on one occasion?: Less than monthly Total Score: 5 MARY-7 AMB Questionnaire MARY-7 Date MARY - 7 assessed: 03/12/24 Feeling nervous, anxious, or on edge: 0 = Not at all Not being able to stop or control worryin = Not at all Worrying too much about different things: 0 = Not at all Trouble relaxin = Not at all Being so restless that it is hard to sit still: 0 = Not at all Becoming easily annoyed or irritable: 0 = Not at all Feeling afraid as if something awful might happen: 1 = Several days Total MARY-7 score (0-4 normal; 5-9 mild; 10-14 moderate; 15-21 severe): 1 Source: Developed by Drs. Teodoro Hsieh, Daisha Valenzuela, Roberto Corona and colleagues, with an educational rebecca from [employer]. MARY-7 Assessment Billing MARY-7 Assessment Tool: MARY-7 Assessment 79103 Review of Systems Const Details: Constitutional: Denies fever. Skin: Denies rash. Eye: Denies eye pain. ENMT: Denies sore throat and nasal congestion. Respiratory: Denies shortness of breath and cough. Gastrointestinal: Denies nausea, vomiting or abdominal pain. Cardiovascular: Denies chest pain and syncope. Genitourinary: Denies dysuria. Musculoskeletal: Denies back pain and extremity pain. Neurologic: Denies headaches, confusion, and weakness. Psychiatric: Denies suicidal thoughts and substance abuse. Allergy/ Immunologic: Denies impaired immunity. Physical exam (Primary Care) Vital Signs: Last Vital Signs Temp 98.4 F 03/12/24 12:14 Pulse 79 03/12/24 12:14 Resp 16 03/12/24 12:14 BP 102/56 L 03/12/24 12:14 Pulse Ox 97 03/12/24 12:14 Oxygen Delivery Method Room Air 03/12/24 12:14 BMI result Body Mass Index 24.4 Tobacco/Smoking Status: Tobacco use Status Tobacco use date assessed 03/12/24 03/12/24 12:16 Patient Tobacco Use Status Former Tobacco user 03/12/24 12:16 e-Cigarette/Vaping Use Never Used 03/12/24 12:16 PHQ-9: PHQ-9 Score PHQ-9: Total score 6 03/12/24 13:04 Thrive Assessment: Date of Thrive Assessment Date Thrive assessed 03/12/24 03/12/24 12:16 Currently or been in a relationship where the following occur: No concerns reported Const Other: General: Well developed, well nourished, in no acute distress. Appears stated age. Head: Normocephalic, atraumatic. Eyes: Pupils are equal, round and reactive to light and accommodation. Conjunctivae are clear. Vision grossly normal. Ears: TMs clear AU, EACS WNL Nose: Patent, without discharge. Mouth: There are no ulcers or lesions noted. No inflammation, no post nasal drip, no plaques nor exudates. Neck: Supple, no adenopathy or thyromegaly. Lungs: Clear to auscultation bilaterally. No rales, rhonchi or wheeze noted. Good air flow in all philippe. Heart: Regular rate and rhythm. No murmurs, click, rubs or gallops are noted. Abdomen: Bowel sounds present in all quadrants. The abdomen is soft, nontender, with no masses or organomegaly noted. No hernias are noted. Musculoskeletal: Joints are nontender, without swelling, redness, or effusions. Range of motion is observed to be normal. Pulses: Peripheral pulses are equal and palpable bilaterally. Extremities: No clubbing, cyanosis nor edema is noted. Neurologic: Gait and station normal. Cranial Nerves 2-12 intact. Motor strength grossly symmetrical and intact. No sensory loss. Balance normal. Skin: No rashes, ulcers, or lesions noted. Turgor is good. Skin color is good. Hair and nails are without abnormalities. Psych: Normal eye contact, affect and mood appropriate, and normal interactions. Patient is alert and appropriate to context. Office Procedures Flu Questionnaire Does the patient have a severe egg allergy?: No Does the patient have severe life threatening allergies?: No Does the patient have a fever or illness today?: No Has the patient ever had Guillain-[place] Syndrome?: No Has the patient ever had any past reaction to a flu shot?: No Immunizations Fluarix Triv 0550-0932 (PF) 45 mcg (15 mcg x 3)/0.5 mL IM syringe Performing Provider: NORMAN Darnell Performing Location: [facility] Administered by: Michelle Boykin RN on 03/12/24 13:03 Dose Route Admin Location Dispensed Lot Number Expiration Date 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 Horizontal 0.5 mL IM Left Deltoid 0.5 mL [id number] 10/25/24 [id number] [employer] VIS Given Date VIS Provided VIS Publication Date 03/12/24 Single Vaccine 20 Eligibility Eligibility Date Funding Source Not [facility] Eligible 03/12/24 Private Coding Level of Care Code Est Pt Prev Care 40-64y(17138) Diagnoses Encounter for general adult medical examination without abnormal findings Z00.00 Hard of hearing H91.90 Actinic keratoses L57.0 Mixed hyperlipidemia E78.2 Hyperlipidemia type: mixed hyperlipidemia CAD in [place] artery I25.10 Panlobular emphysema J43.1 COPD type: emphysema Emphysema type: panlobular Osteopenia of multiple sites M85.89 Osteopenia location: multiple sites Additional Codes MARY-7 Assessment Billing - MARY-7 Assessment Tool: MARY-7 Assessment 69556 ([id number]) PHQ-9 - 03066 - PHQ-9 Billing: Yes ([id number]) Assessment & Plan Assessment & Plan (1) Encounter for general adult medical examination without abnormal findings: Code(s): Z00.00 - Encounter for general adult medical examination without abnormal findings Plan: . (2) Hard of hearing: Code(s): H91.90 - Unspecified hearing loss, unspecified ear Category: Medical Plan: . (3) Actinic keratoses: Code(s): L57.0 - Actinic keratosis Category: Medical Plan: . (4) Hyperlipidemia: Comment: Start atorvastatin 40mg QD. Recheck lipids in Feb, titrate to LDL <70 Cardiology referral active, for further workup of hyperlipidemia and CAD per her request Code(s): E78.5 - Hyperlipidemia, unspecified Category: Medical Qualifiers: Hyperlipidemia type: mixed hyperlipidemia Qualified Code(s): E78.2 - Mixed hyperlipidemia Plan: . (5) CAD in [place] artery: Comment: 12/24/23 Ct of chest + CAD Code(s): I25.10 - Atherosclerotic heart disease of [place] coronary artery without angina pectoris Category: Medical Plan: . (6) COPD (chronic obstructive pulmonary disease): Code(s): J44.9 - Chronic obstructive pulmonary disease, unspecified Category: Medical Qualifiers: COPD type: emphysema Emphysema type: panlobular Qualified Code(s): J43.1 - Panlobular emphysema Plan: . (7) Osteopenia: Comment: DEXA 06/2023Osteopenia based on the lowest T-score value of -1.9 in the femoral neck applying World Health Organization criteria. 2. 10-YEAR FRACTURE RISK PREDICTION, FRAX: Major osteoporotic fracture (clinical spine, forearm, hip or shoulder) 14.7%. Hip fracture 1.8%. Code(s): M85.80 - Other specified disorders of bone density and structure, unspecified site Category: Medical Qualifiers: Osteopenia location: multiple sites Qualified Code(s): M85.89 - Other specified disorders of bone density and structure, multiple sites Plan: . Orders: Orders Lipid Panel 08/26/24 E78.2 - Mixed hyperlipidemia Comprehensive [place]. Panel Fast 08/26/24 E78.2 - Mixed hyperlipidemia Influenza [id number] Immunization Today Z23 - Encounter for immunization Referrals Dermatology Referral L57.0 - Actinic keratosis Audiology Referral H91.90 - Unspecified hearing loss, unspecified ear Medications: Changed From meloxicam 15 mg PO DAILY 30 tabs 3RF M19.90 - Unspecified osteoarthritis, unspecified site To meloxicam 15 mg PO DAILY 90 tabs 3RF 90 days M19.90 - Unspecified osteoarthritis, unspecified site Refilled hydroxyzine HCl 25 mg PO BID PRN 90 tabs 2RF anxiety Patient Instructions: Health screenings for women You should visit your health care provider from time to time, even if you are healthy. The purpose of these visits is to: Screen for medical issues Assess your risk for future medical problems Encourage a healthy lifestyle Update vaccinations and other preventive care services Help you get to know your provider in case of an illness Information Even if you feel fine, you should still see your provider for regular checkups. These visits can help you avoid problems in the future. For example, the only way to find out if you have high blood pressure is to have it checked regularly. High blood sugar and high cholesterol levels also may not have any symptoms in the early stages. A simple blood test can check for these conditions. There are specific times when you should see your provider or receive specific health screenings. The [place] Preventive Services Task Force publishes a list of recommended screenings. Below are screening guidelines for women ages 18 to 39. BLOOD PRESSURE SCREENING Your blood pressure should be checked at least once every 3 to 5 years if: Your blood pressure is in the normal range (top number less than 120 mm Hg and bottom number less than 80 mm Hg) You don't have risk factors for high blood pressure Ask your provider if you need your blood pressure checked more often if: The top number is 120 to 129 mm Hg or the bottom number is 70 to 79 mm Hg You have diabetes, heart disease, kidney problems, are overweight, or have certain other health conditions You have a first-degree relative with high blood pressure You are Black You had high blood pressure during a If the top number is 130 mm Hg or greater or the bottom number is 80 mm Hg or greater, this is considered stage 1 hypertension. Schedule an appointment with your provider to learn how you can reduce your blood pressure. Watch for blood pressure screenings in your area. Ask your provider if you can stop in to have your blood pressure checked. BREAST CANCER SCREENING Experts do not agree about the benefits of breast self-exams in finding breast cancer or saving lives. Talk to your provider about what is best for you. A screening mammogram is not recommended for most women under age 40. Your provider may discuss and recommend mammograms, MRI scans, or ultrasounds if you have an increased risk for breast cancer, such as: A mother or sister who had breast cancer at a young age (most often starting screening earlier than the age the close relative was diagnosed) You carry a high-risk genetic marker CERVICAL CANCER SCREENING Cervical cancer screening should start at age 21 years unless your provider advises otherwise. After the first test: Women ages 21 through 29 should have a Pap test every 3 years. Exoprts do not agree on whether HPV testing is recommended for this age group. Women ages 30 through 65 should be screened with either a Pap test every 3 years or the HPV test every 5 years or both tests every 5 years (called cotesting ). Women who have been treated for precancer (cervical dysplasia) should continue to have Pap tests for 20 years after treatment or until age 65, whichever is longer. If you have had your uterus and cervix removed (total hysterectomy), and you have not been diagnosed with cervical cancer or precancer (high grade cervical neoplasia), you do not need cervical cancer screening. CHOLESTEROL SCREENING Cholesterol screening should begin at: Age 45 for women with no known risk factors for coronary heart disease Age 20 for women with known risk factors for coronary heart disease Repeat cholesterol screening should take place: Every 5 years for women with normal cholesterol levels More often if changes occur in lifestyle (including weight gain and diet) More often if you have diabetes, heart disease, kidney problems, or certain other conditions DIABETES SCREENING You should be screened for diabetes starting at age 35 and then repeated every 3 years if you have no risk factors for diabetes. Screening may need to start earlier and be repeated more often if you have other risk factors for diabetes, such as: You have a first degree relative with diabetes. You are overweight or have obesity. You have high blood pressure, prediabetes, or a history of heart disease. Screening for diabetes should be done if you are planning to become and you are overweight and have other risk factors such as high blood pressure. DENTAL EXAM Go to the dentist once or twice every year for an exam and cleaning. Your dentist will evaluate if you need more frequent visits. EYE EXAM Have an eye exam every 5 to 10 years before age 40. If you have vision problems, have an eye exam every 2 years or more often if recommended by your provider. You should have an eye exam that includes an examination of your retina (back of your eye) at least every year if you have diabetes. IMMUNIZATIONS Commonly needed vaccines include: Flu shot: get one every year. COVID-19 vaccine: ask your provider what is best for you. Tetanus-diphtheria and acellular pertussis (Tdap) vaccine: have one at or after age 19 as one of your tetanus-diphtheria vaccines if you did not receive it as an adolescent. Tetanus-diphtheria: have a booster (or Tdap) every 10 years. Varicella vaccine: receive 2 doses if you never had chickenpox or the varicella vaccine. Hepatitis B vaccine: receive 2, 3, or 4 doses, depending on your exact circumstances. Measles, mumps, and rubella (MMR) vaccine: receive 1 to 2 doses if you are not already immune to MMR. Your provider can tell you if you are immune. Ask your provider about the human papillomavirus (HPV) vaccine if: You have not received the HPV vaccine in the past You have not completed the full vaccine series (you should catch up on this shot) Ask your provider if you should receive other immunizations if you have certain health problems that increase your risk for some diseases such as pneumonia. INFECTIOUS DISEASE SCREENING Women who are sexually active should be screened for chlamydia and gonorrhea up until age 25. Women 25 years and older should be screened for chlamydia and gonorrhea if at high risk. Screening for hepatitis C: All adults ages 18 to 79 should get a one-time test for hepatitis C. people should be screened at every . Screening for human immunodeficiency virus (HIV): All people ages 15 to 65 should get a one-time test for HIV. Depending on your lifestyle and medical history, you may also need to be screened for infections such as syphilis and HIV, as well as other infections. PHYSICAL EXAM All adults should visit their provider from time to time, even if they are healthy. The purpose of these visits is to: Screen for disease Assess your risk of future medical problems Encourage a healthy lifestyle Update your vaccinations and other preventive care services Maintain a relationship with a provider in case of an illness Your height, weight, and BMI should be checked at every exam. During your exam, your provider may ask you about: Depression and anxiety Diet and exercise Alcohol and tobacco use Safety issues, such as using seat belts, smoke detectors, and intimate partner violence Your medicines and risk for interactions SKIN SELF-EXAM Your provider may check your skin for signs of skin cancer, especially if you're at high risk, such as if you: Have had skin cancer before Have close relatives with skin cancer Have a weakened immune system OTHER SCREENING Talk with your provider about colon cancer screening if you have a strong family history of colon cancer or polyps, or if you have had inflammatory bowel disease or polyps yourself. Routine bone density screening of women under 40 is not recommended.
[2024-03-12 12:14] VITALS: BP 102/56; PULSE 79; RESP 16; TEMP 36.9; O2SAT 97; BMI 24.4
== END 2024-03-12 13:02 | disposition home or self-care (01) ==
PROVIDERS: PCP Nurse Practitioner Family; Visit Provider Nurse Practitioner Family
DX: Z00.00 Encounter for general adult medical examination without abnormal findings (principal); J43.1 Panlobular emphysema; L57.0 Actinic keratosis; E78.2 Mixed hyperlipidemia; I25.10 Atherosclerotic heart disease of native coronary artery without angina pectoris; M85.89 Other specified disorders of bone density and structure, multiple sites

== ENCOUNTER → 2024-03-12 12:02 | Outpatient (BNVA) | payer OTHER, SELFPAY | PROVIDERS: PCP Nurse Practitioner Family; Visit Provider Nurse Practitioner Family | DX: Z00.00 Encounter for general adult medical examination without abnormal findings (principal); Z23 Encounter for immunization; H91.90 Unspecified hearing loss, unspecified ear; L57.0 Actinic keratosis; E78.2 Mixed hyperlipidemia; I25.10 Atherosclerotic heart disease of native coronary artery without angina pectoris; J43.1 Panlobular emphysema; M85.89 Other specified disorders of bone density and structure, multiple sites | CPT/HCPCS: 90471; 90656; 96127; 99396 ==

== ENCOUNTER 2024-03-17 15:55 | Outpatient (REF) | payer OTHER, SELFPAY | END 2024-03-17 15:56 | disposition home or self-care (01) | LOC: HO.SH 15:55 | PROVIDERS: Visit Provider Nurse Practitioner Family | DX: Z01.118 Encounter for examination of ears and hearing with other abnormal findings (principal); H90.3 Sensorineural hearing loss, bilateral | CPT/HCPCS: 92557 ==

== ENCOUNTER 2024-06-21 11:57 | Outpatient (REF) | payer BC, SELFPAY ==
--- OUTSIDE RECORDS SUMMARY | 2024-06-21 13:51 | XMS_ITS | Patient Health Record ---
Author Organization [facility] Address [address] [place] [address] [address] [place] [address] Care Team Providers Care Fractionation Supervisor Name Role Phone O CHRISTIANO CELAYA Primary Care Provider Fern Torres Unavailable [phone] Allergies No Known Allergies Results Component Value Reference Range Notes PDF Report Reviewed date:05/08/2024 11:44:10 AM Interpretation: Performing Lab:[facility], [address] [place] [address], Phone - [phone], Director [facility] Notes/Report: Clinical Information:Vaginal/Cervical, LMP: Men o 2010 [id number] Dates / Results....10/27/21 NIL, Neg HPV Other..............Post Menopausal No. of containers..01 ThinPrep Vial [id number] IGP No Culture 30 Plus Reviewed date:05/08/2024 11:45:15 AM Interpretation: Performing Lab:[facility], [address] [place] [address], Phone - [phone], Director [facility] Notes/Report: Clinical Information:Vaginal/Cervical, LMP: Men o 2010 [id number] Dates / Results....10/27/21 NIL, Neg HPV Other..............Post Menopausal No. of containers..01 ThinPrep Vial DIAGNOSIS: EPITHELIAL CELL ABNORMALITY. LOW GRADE SQUAMOUS INTRAEPITHELIAL LESION (LSIL). Specimen adequacy: Satisfactory for evaluation. Endocervical and/or squamous metaplastic cells (endocervical component) are present. Clinician provided ICD10: Z0 1.419 Performed by: Jaz amin, Shellfish Grower (ASCP) Electronically signed by: Martha Childs MD, Pathologist . . Pathologist provided ICD10: R87.612 Note: The Pap smear is a screening test designed to aid in the detection of premalignant and malignant conditions of the uterine cervix. It is not a diagnostic procedure and should not be used as the sole means of detecting cervical cancer. Both false-positive and false-negative reports do occur. . Test Methodology: This liquid based ThinPrep(R) pap test was screened with the use of an image guided system. HPV Aptima Negative Negative This nucleic acid amplification test detects fourteen high-risk HPV types (16,18,31,33,35,39,45,51,52,56, 58,59,66,68) without differentiation. HPV Genotype Reflex Criteria not met, HPV Genotype not performed. Urinalysis Reviewed date:04/30/2024 09:20:32 AM Interpretation: Performing Lab: Notes/Report: PH 5.0 PROTEIN Neg GLUCOSE Neg BLOOD Neg Reason For Referral No Information Medications Medication SIG (Take, Route, Frequency, Duration) Notes Start Date End Date Status Meloxicam 15 MG 1 tablet Orally Once a day for 30 day(s) Active Estradiol Vaginal Cream 0.01% 1 Gram to the affected area Vaginal/Vulva Twice a week for 90 Days 11/20/2022 Active Ashwagandha Active Estradiol Vaginal Cream 0.01% 1 Gram to the affected area Vaginal/Vulva Twice a week for 90 Days 04/30/2024 Active hydrOXYzine HCl 25 MG Oral for 30 Days Active Atorvastatin Calcium 40 MG Oral for 90 Days Active Social History Tobacco Use: Social History Observation Description Date Details (start date - stop date) Former Smoker NA - NA Sexual History Question Answer Notes Had sex in the past 12 months (vaginal, oral, or anal)? Yes with Men only Prevention strategies discussed: Other AUDIT-C (Standard) Question Answer Notes Did you have a drink contain ing alcohol in the past year? Yes How often did you have six o r more drinks on one occasion in the past year? Never (0 point) How many drinks did you have on a typical day when you were drinking in the past year? 1 or 2 drinks (0 point) How often did you have a dri nk containing alcohol in the past year? Daily or almost daily (4 points) Points 4 Interpretation Positive Tobacco Control (Standard) Question Answer Notes Tobacco use: Former smoker How long has it been since you last smoked? 5-10 years Problems Problem Type SNOMED Code ICD Code Onset Dates Problem Status W/U Status Risk Notes Problem Menopause (853978030) Menopausal and female climacteric states (N95.1) Active confirmed Problem Postmenopausal atrophic vaginitis (99546635) Postmenopausal atrophic vaginitis (N95.2) Active confirmed Problem Dysplasia of cervix (23512690) Dysplasia of cervix, unspecified (622.10) Active confirmed Diag Problem Menopausal symptom (03900681) Symptomatic menopausal or female climacteric states (627.2) Active confirmed Diag Problem Gynecological examination normal (297117358727364) Routine gynecological examination (V72.31) Active confirmed Major Vital Signs Temperature 97.7 degrees Fahrenheit 04/30/2024 Blood pressure diastolic 70 mm Hg 04/30/2024 Height 63 in 04/30/2024 Blood pressure systolic 124 mm Hg 04/30/2024 Weight 135 lbs 04/30/2024 BMI 23.91 kg/m2 04/30/2024 Encounters Encounter Location Date Provider Diagnosis [address] [place] [address] 04/30/2024 Fern Chin Encounter for gynecological examination (general) (routine) without abnormal findings Z01.419 ; Encounter for screening mammogram for malignant neoplasm of breast Z12.31 ; Other specified disorders of bone density and structure, multiple sites M85.89 and Postmenopausal atrophic vaginitis N95.2 Assessments Encounter Date Diagnosis (ICD Code) Assessment Notes Treatment Notes Treatment Clinical Notes Section Notes 04/30/2024 Encounter for gynecological examination (general) (routine) without abnormal findings (ICD-10 - Z01.419) PAP TEST WITH HPV TYPING WAS OBTAINED. 04/30/2024 Encounter for screening mammogram for malignant neoplasm of breast (ICD-10 - Z12.31) REGULAR MAMMOGRAMS AND SBE'S WERE RECOMMENDED. 04/30/2024 Other specified disorders of bone density and structure, multiple sites (ICD-10 - M85.89) DISCUSSED HER LAST BMD RESULTS, OSTEOPENIA AND ITS IMPACT ON HER HEALTH. ADEQUATE CALCIUM AND VIT D. WEIGHT BEARING EXERCISES. REPEAT BMD IN 2025. 04/30/2024 Postmenopausal atrophic vaginitis (ICD-10 - N95.2) DISCUSSED FINDINGS, DX AND TX OPTIONS. ADVISED PAT TO BE CONSISTENT WITH ESTRADIOL USE. RX AND INSTRUCTIONS WERE GIVEN. Plan Of Treatment Pending Test Test Name Order Date BONE DENSITY 11/20/2022 MM Digital Mammo Screening 04/30/2024 MM Digital Mammo Screening 11/16/2021 MM Digital Mammo Screening 11/20/2022 Next Appt Details Provider Name:Fern walls, 05/05/2025 10:00:00 AM, [address] [facility], [address], [place], [address], Insurance Providers Payer Name Payer Address Payer Phone Subscriber Number Group Number Insured Name Patient Relationship to Insured Coverage Start Date Coverage End Date [employer] [place] [address] [place] [address] [id number] WEI BIANCHI Self - patient is the insured Medical (General) History Medical History History ICD Code Dysplasia of cervix uteri, unspecified N 87.9 Menopausal and female climacteric states N95.1 Unspecified osteoarthritis, unspecified site M19.90 Chronic obstructive pulmonary disease, u nspecified J44.9 Disorder of bone density and structure, unspecified M85.9 Postmenopausal atrophic vaginitis N95.2 Other specified disorders of bone densit y and structure, multiple sites M85.89 Surgical History Surgery Date(Month/Year) Ablation Bilateral Tubal Ligation Breast Implants Left Clavicle Repair Thumb Tendonitis Colonoscopy Hospitalization History Reason Date(Month/Year) See Surgical Hx 4 Vaginal Deliveries
--- OUTSIDE RECORDS SUMMARY | 2024-06-21 13:51 | XMS_ITS ---
Author Organization [facility] [employer] Address [address] [facility] [address] [place] [address] Care Team Providers Care Mill Operator Helper Name Role Phone CHRISTIANO HUERTA Primary Care Provider Fern Torres Unavailable [phone] REASON FOR VISIT Annual SOCIAL PROBLEMS SPECIALIST Physical Encounters Encounter Location Date Provider Diagnosis [facility] [employer] [address] [address] 11/26/2023 Fern Chin Plan Of Treatment Next Appt Details Provider Name:Fern walls, 05/05/2025 10:00:00 AM, [address] [place] [address], [address], [place], [address], Progress Notes * ADDY BIANCHIOB: 6 (58 yo F)Acc No.[id number]:11/26/2023 PROGRESS NOTES Patient:?WEI BIANCHI Appointment Provider:?Fern walls M.D. :1965???Age:57 Y???Sex:Female D ate:11/26/2023 Address:[address] [place], [place] [id number] Pcp:ARELI CASTILLO Subjective: * Chief Complaints: * ???1. 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 * Medical History:? Objective: * Vitals:? Assessment: Plan: * Treatment: * Images: Billing Information: * Visit Code:? * Procedure Codes:? * Electronic signature of Fabiana Chin MD on 06/21/2024 at 01:51 PM EST Sign off status: Pending * Appointment Provider:?Fern Chin M.D. Date:?11/26/2023 Generated for Desiree pierce/Carter/Lindsay on:?06/21/2024 01:51 PM EST
--- OUTSIDE RECORDS SUMMARY | 2024-06-21 13:51 | XMS_ITS ---
Author Organization [employer] [facility] Address [address] [facility] [address] [place] [address] Care Team Providers Care Motor Vehicle Inspector Name Role Phone O CHRISTIANO CELAYA Primary Care Provider Fern Torres Unavailable [phone] Allergies No Known Allergies Results Component Value Reference Range Notes Urinalysis Reviewed date:04/30/2024 09:20:32 AM Interpretation: Performing Lab: Notes/Report: PH 5.0 PROTEIN Neg GLUCOSE Neg BLOOD Neg [id number] IGP No Culture 30 Plus Reviewed date:05/08/2024 11:45:15 AM Interpretation: Performing Lab:[facility], [address] [facility], Phone - [phone], Director - [facility] Notes/Report: Clinical Information:Vaginal/Cervical, LMP: Men o 2010 [id number] Dates / Results....10/27/21 NIL, Neg HPV Other..............Post Menopausal No. of containers..01 ThinPrep Vial DIAGNOSIS: EPITHELIAL CELL ABNORMALITY. LOW GRADE SQUAMOUS INTRAEPITHELIAL LESION (LSIL). Specimen adequacy: Satisfactory for evaluation. Endocervical and/or squamous metaplastic cells (endocervical component) are present. Clinician provided ICD10: Z0 1.419 Performed by: Jaz amin, Laboratory Secretary (ASCP) Electronically signed by: Martha Childs MD, [...] Criteria not met, HPV Genotype not performed. PDF Report Reviewed date:05/08/2024 11:44:10 AM Interpretation: Performing Lab:[facility], [address] [place] [address], Phone - [phone], Director - [facility] Notes/Report: Clinical Information:Vaginal/Cervical, LMP: Men o 2010 [id number] Dates / Results....10/27/21 NIL, Neg HPV Other..............Post Menopausal No. 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 5-10 years Vital Signs Temperature 97.7 degrees Fahrenheit 04/30/19 25 Blood pressure systolic 124 mm Hg 04/30/19 25 Blood pressure diastolic 70 mm Hg 025 Height 63 in 04/30/2024 Weight 135 lbs 04/30/2024 BMI 23.91 kg/m2 04/30/2024 Encounters Encounter Location Date Provider Diagnosis [address] [place] [address] 04/30/2024 Fern Giuseppe Encounter for gynecological examination (general) (routine) without [...] AND INSTRUCTIONS WERE GIVEN. Plan Of Treatment Medication Medication Name Sig Start Date Stop Date Notes Estradiol Vaginal Cream 0.01% 1 Gram to the affected area Vaginal/Vulva Twice a week for 90 Days 04/30/2024 Treatment Notes Assessment Notes Encounter for gynecological examination (general) (routine) without abnormal findings PAP TEST WITH HPV TYPING WAS OBTAINED. Encounter for screening mamm ogram for malignant neoplasm of breast REGULAR MAMMOGRAMS AND SBE'S WERE RECOMMENDED. Other specified disorders of bone density and structure, multiple sites DISCUSSED HER LAST BMD RESULTS, OSTEOPENIA AND ITS IMPACT ON HER HEALTH. ADEQUATE CALCIUM AND VIT D. WEIGHT BEARING EXERCISES. REPEAT BMD IN 2025. Postmenopausal atrophic vaginitis DISCUSSED FINDINGS, DX AND TX OPTIONS. ADVISED PAT TO BE CONSISTENT WITH ESTRADIOL USE. RX AND INSTRUCTIONS WERE GIVEN. Pending Test Test Name Order Date MM Digital Mammo Screening 04/30/2024 Next Appt Details Follow Up: 1 Year, Reason: Provider Name:Fern walls, 05/05/2025 10:00:00 AM, [address] [facility], [address], [place], [address], Progress Notes * ADDY BIANCHIOB: 6 (58 yo F)Acc No.[id number]:04/30/2024 PROGRESS NOTES Patient:?WEI BIANCHI Appointment Provider:?Fern walls M.D. :1965???Age:58 Y???Sex:Female D ate:04/30/2024 Address:[address] [place], [place] [phone] Pcp:ARELI CASTILLO Subjective: * Chief Complaints: * ??? Annual CRACKING UNIT OPERATOR PhysicalAnnua l CRACKING UNIT OPERATOR Physical 50-59* * HPI: ???New/Follow-up Patient Consult:? PAT UNDERWENT NOVASURE ABLATION IN 2006 TO CONTROL MENORRHAGIA.? SHE STOPPED MENSTRUATING.? SHE ENTERED MENOPAUSE IN 2010. SHE USES ESTRADIOL CREAM ONLY OCCASIONALLY FOR ATROPHIC VAGINITIS.? SHE C/O DYSPAREUNIA. HER LAST MAMMOGRAM DONE IN MAY 2023 SHOWED BREASTS ARE NOT DENSE AND WAS NORMAL. HER LAST PAP TEST IN 2021 WAS NEGATIVE AND HPV NEGATIVE. HER LAST BMD IN 2020 SHOWED THE LOWEST T-SCORE TO BE -1.8 AT THE SPINE.? FRAX=6.2%/0.4%. SHE HAD A COLONOSCOPY DONE IN 2019 AND HAS AN APPT FOR ANOTHER ONE THIS YEAR. PFIZER X 3. ???Annual:? Patient presents for annual exam, ages 50-59. ?General Health Maintenance:?Current breast complaints:?no breast pain, mass, discharge, or skin changes ?Urinary problems:?patient reports no urinary health problems or bowel health problems ?Calcium intake:?takes adequate calcium via diet and supplementation ?Significant CRACKING UNIT OPERATOR problems:?no significant bait painter symptoms or problems * ROS:?general:?no?chest pain.?no?palpitations.?no?headache.?no?cough.?no?shortness of breath.?no?fever.?no?unexplained weight loss.?no?nausea/vomiting.?no?change in bowel movements.?no blood in stool.?no?genitourinary complaints.?no?skin complaints.? * Medical History:? * Electroencephalograph Technician History:?/ Para?4/4.?Sexual activity?currently sexually active.?Last Pap Smear:?11/16/21 NIL, NEG HPV, 08/25/18 NIL, NEG HRHPV, 03/01/14 HPV typing not done.?Mammogram:?06/03/22 Breast Tissue is Almost Entirely Fatty, 05/10/21 Breast Tissue is Almost Entirely Fatty, 10/05/18 Breast Tissue is Almost Entirely Fatty, 07/27/15, < 50% density.?Abnormal Pap Smear:?no history of abnormal pap smears.?LMP and menses?S/P Ablation.? Control:?Ablation.?Colonoscopy?2019 q 5 years.?Bone Density:?04/07/21.? * OB History:?Total pregnancies?4.?Total living children?4.?NVD?4.? * Surgical History:?Ablation B ilateral Tubal Ligation Breast Implants Left Clavicle Repair Thumb Tendonitis Colonoscopy * Hospitalization/Major Diagno stic Procedure:?4 Vaginal Deliveries See Surgical Hx * Family History:?Mother: aliv e, hypertension.?Father: , COPD, CHF.?Paternal aunt: lung cancer.?Maternal aunt: throat cancer.? Paternal aunt: esophageal cancer. * Social History:?Tobacco Use:?Tobacco Control (Standard)?Tobacco use:?Former smoker ?How long has it been since you last smoked??5-10 years ???Sexual History:?Sexual History?Had sex in the past 12 months (vaginal, oral, or anal)??Yes ?with?Men only ?Prevention strategies discussed:?Other ?Details of Sexual History?Are you sexually active??Yes ???Drugs/Alcohol:?Drugs?Have you used drugs other than those for medical reasons in the past 12 months??No ???Miscellaneous:?Children: yes, 4. ?Exercise: yes. ?Home smoke detector use: yes. ?Living with: fiance. ?Marital status: now engaged. ?Natural support system: yes. ?Occupation: Unemployed. ?Sexually active: yes, monogamous relationship. ???Drug/Alcohol:?AUDIT-C (Standard)?Did you have a drink containing alcohol in the past year??Yes ?How often did you have six or more drinks on one occasion in the past year??Never (0 point) ?How many drinks did you have on a typical day when you were drinking in the past year??1 or 2 drinks (0 point) ?How often did you have a drink containing alcohol in the past year??Daily or almost daily (4 points) ?Points?4 ?Interpretation?Positive * Medications:?TakingAshwagand martino Meloxicam 15 MG Tablet 1 tablet Orally Once a day Estradiol Vaginal Cream 0.01% Cream 1 Gram to the affected area Vaginal/Vulva Twice a week hydrOXYzine HCl 25 MG Tablet Oral Atorvastatin Calcium 40 MG Tablet Oral Taking Ashwagandha Taking Meloxicam 15 MG Tablet 1 tablet Orally Once a day Taking Estradiol Vaginal Cream 0.01% Cream 1 Gram to the affected area Vaginal/Vulva Twice a week Taking hydrOXYzine HCl 25 MG Tablet Oral Taking Atorvastatin Calcium 40 MG Tablet Oral DiscontinuedTurmeric 500 MG Capsule as directed Orally Multi-Vitamin - Tablet 1 tablet Orally Once a day Medication List reviewed and reconciled with the patientDiscontinued Turmeric 500 MG Capsule as directed Orally Discontinued Multi-Vitamin - Tablet 1 tablet Orally Once a day Medication List reviewed and reconciled with the patient * Allergies:?N.K.D.A.no[Allerg ies Verified] Objective: * Vitals:?Ht: 63 in, Wt:135lbs , BMI:23.91Index, BP:124/70mm Hg, Temp:97.7F. * Examination: ???General Exam: ?CONSTITUTIONAL:?NECK/THYROID:?RESPIRATORY:?Auscultation: clear to auscultation bilaterally, Respiratory Effort: normal.?CARDIOVASCULAR:?Auscultation: regular rate and rhythm.?BREAST, Right:?BREAST, Left:?GASTROINTESTINAL:?MUSCULOSKELETAL:?SKIN:?NEURO/PSYCH:?Genitourinary: ?EXTERNAL GENITALIA:?VAGINA:?BLADDER:?URETHRA:?CERVIX:?UTERUS:?ADNEXA:?ANUS AND PERINEUM:? Assessment: * Assessment: 1.?Encounter for gynecologic al examination (general) (routine) without abnormal findings - Z01.419???2.?Encounter for screening mammogram for malignant neoplasm of breast - Z12.31???3.?Other specified disorders of bone density and structure, multiple sites - M85.89???4.?Postmenopausal atrophic vaginitis - N95.2??? Plan: * Treatment: ?LAB: Urinalysis (Collection Date & Time - 04/30/2024)* ? Value Reference Range ?PH 5.0 * ?PROTEIN Neg * ?GLUCOSE Neg * ?BLOOD Neg * D., SOPHIA 04/30/2024 09:20:29 AM EST > Notes: PAP TEST WITH HPV TYPING WAS OBTAINED.??2.?Encounter for screening mammogram for malignant neoplasm of breast?Imaging: MM Digital Mammo Screening Notes: REGULAR MAMMOGRAMS AND SBE'S WERE RECOMMENDED.??3.?Other specified disorders of bone density and structure, multiple sites? Notes: DISCUSSED HER LAST BMD RESULTS, OSTEOPENIA AND ITS IMPACT ON HER HEALTH. ADEQUATE CALCIUM AND VIT D. WEIGHT BEARING EXERCISES. REPEAT BMD IN 2025.??4.?Postmenopausal atrophic vaginitis? Start Estradiol Vaginal Cream Cream, 0.01%, 1 Gram to the affected area, Vaginal/Vulva, Twice a week, 90 Days, 42.5 Gram, Refills 4.?? Notes: DISCUSSED FINDINGS, DX AND TX OPTIONS. ADVISED PAT TO BE CONSISTENT WITH ESTRADIOL USE. RX AND INSTRUCTIONS WERE GIVEN.?? * Procedure Codes:? * Preventive Medicine:? ??YOUR PREVENTIVE WELLNESS PLAN:?Osteoporosis prevention?Calcium, D, strength training.?Breast Cancer Screening (Mammogram):?annually.?Cervical Cancer Screening (Pap Smear):?q 3 years with HPV screen.?Colorectal Cancer Screening:?q 10 years.? * Follow Up:?1 Year * Images: Billing Information: * Visit Code:? 30678 Preventive Care New Pt. Age 40-64. 52260 Preventive Care Est Pt. Age 40-64. * Procedure Codes:? * Sign off status: Completed true * Appointment Provider:?Fern Gibsonueva M.D. Date:?04/30/2024 Generated for Desiree pierce/Carter/Traceitting on:?06/21/2024 01:51 PM EST History and Physical Notes * HPI (History of Present Illness) Category Sub-Category Detail Notes Category Not es New/Follow-up Patient Consult PAT UNDERWENT NOVASURE ABLATION IN 2006 TO CONTROL MENORRHAGIA. SHE STOPPED MENSTRUATING. SHE ENTERED MENOPAUSE IN 2010. SHE USES ESTRADIOL CREAM ONLY OCCASIONALLY FOR ATROPHIC VAGINITIS. SHE C/O DYSPAREUNIA. HER LAST MAMMOGRAM DONE IN MAY 2023 SHOWED BREASTS ARE NOT DENSE AND WAS NORMAL. HER LAST PAP TEST IN 2021 WAS NEGATIVE AND HPV NEGATIVE. HER LAST BMD IN 2020 SHOWED THE LOWEST T-SCORE TO BE -1.8 AT THE SPINE. FRAX=6.2%/0.4%. SHE HAD A COLONOSCOPY DONE IN 2019 AND HAS AN APPT FOR ANOTHER ONE THIS YEAR. [place] X 3. Annual General Health Maintenance: Current breast complaints:: no breast pain, mass, discharge, or skin changes Urinary problems:: patient r eports no urinary health problems or bowel health problems Calcium intake:: takes adequ ate calcium via diet and supplementation Significant CRACKING UNIT OPERATOR problems:: n o significant bait painter symptoms or problems Examination Category Sub-Category Detail Notes Category Not es General Exam CONSTITUTIONAL: General Appearan ce:: alert, in no acute distress, normal, well nourished NECK/THYROID: Thyroid:: normal size and shape Inspection/Palpation:: normal RESPIRATORY: Auscultation: clear to auscultation bilaterally, Respiratory Effort: normal CARDIOVASCULAR: Auscultation: regula r rate and rhythm GASTROINTESTINAL: Hernias:: no hernias present, no inguinal adenopathy Liver and Spleen:: normal Abdomen:: no masses, nontender, nondiste nded MUSCULOSKELETAL: Inspection/Palpation:: no clubb ing, cyanosis, or edema SKIN: Skin:: normal NEURO/PSYCH: Mood/Affect:: normal Orientation:: time , place, person BREAST, Right: Inspection/Palpation :: no discharge, no masses present, no nipple retraction, no skin changes, no skin dimpling, no tenderness, no lymphadenopathy, no axillary mass, no axillary tenderness BREAST, Left: Inspection/Palpation :: no discharge, no masses present, no nipple retraction, no skin changes, no skin dimpling, no tenderness, no lymphadenopathy, no axillary mass, no axillary tenderness Genitourinary EXTERNAL GENITALIA: External Genitalia:: nor mal, no lesions VAGINA: Vagina:: atrophic vaginal tissue , minimal moisture BLADDER: Bladder:: no mass, nontender URETHRA: Urethra:: no erythema or lesions present CERVIX: Cervix:: no lesions, nontender UTERUS: Uterus:: nontender, normal conto ur, normal mobility, normal size ADNEXA: Adnexa:: no masses, no tendernes s ANUS AND PERINEUM: Anus/Perineum:: visually norm al
== END 2024-06-21 11:58 | disposition home or self-care (01) ==
LOC: HO.MAMMO 11:57
PROVIDERS: PCP Nurse Practitioner Family; Visit Provider Nurse Practitioner Family
DX: Z12.31 Encounter for screening mammogram for malignant neoplasm of breast (principal)
CPT/HCPCS: 77063; 77067

== ENCOUNTER → 2024-06-21 12:00 | Outpatient (BNV) | payer BC, SELFPAY | PROVIDERS: PCP Nurse Practitioner Family; Visit Provider Internal Medicine | DX: Z12.31 Encounter for screening mammogram for malignant neoplasm of breast (principal) | CPT/HCPCS: 77063; 77067 ==

== ENCOUNTER 2024-09-13 08:09 | Outpatient (REF) | payer BC, SELFPAY ==
--- OUTSIDE RECORDS SUMMARY | 2024-09-13 08:15 | XMS_ITS ---
Author Organization [facility] [employer] [facility] Address [address] [facility] [address] [place] [address] Care Team Providers Care Cake Winder Name Role Phone CHRISTIANO HUERTA Primary Care Provider Fern Torres Unavailable [phone] REASON FOR VISIT Annual STAIN WIPER Physical Encounters Encounter Location Date Provider Diagnosis [facility] [address] [address] 11/26/2023 Fern Chin Plan Of Treatment Next Appt Details Provider Name:Fern walls, 05/05/2025 10:00:00 AM, [address] [place] [address], [address], [place], [address], Progress Notes * ADDY BIANCHIOB: 6 (58 yo F)Acc No.[id number]:11/26/2023 PROGRESS NOTES Patient:?WEI BIANCHI Appointment Provider:?Fern walls M.D. :1965???Age:57 Y???Sex:Female D ate:11/26/2023 Address:[address] [place], [place] [id number] Pcp:ARELI CASTILLO Subjective: * Chief Complaints: * ???1. 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 * Medical History:? Objective: * Vitals:? Assessment: Plan: * Treatment: * Images: Billing Information: * Visit Code:? * Procedure Codes:? * Electronic signature of Fabiana Chin MD on 09/13/2024 at 08:14 AM EDT Sign off status: Pending * Appointment Provider:?Fern Chin M.D. Date:?11/26/2023 Generated for Desiree pierce/Carter/Lindsay on:?09/13/2024 08:14 AM EDT
--- OUTSIDE RECORDS SUMMARY | 2024-09-13 08:15 | XMS_ITS | Patient Health Record ---
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 of containers..01 ThinPrep Vial [id number] No Culture 30 Plus Reviewed date:05/08/2024 11:45:15 AM Interpretation: Performing Lab:[facility], [address] [place] [address], Phone - [phone], [facility] Notes/Report: Clinical Information:Vaginal/Cervical, LMP: Men o 2010 [id number] Dates / Results....10/27/21 NIL, Neg HPV Other..............Post Menopausal No. of containers..01 ThinPrep Vial DIAGNOSIS: EPITHELIAL CELL ABNORMALITY. LOW GRADE SQUAMOUS INTRAEPITHELIAL LESION (LSIL). Specimen adequacy: Satisfactory for evaluation. Endocervical and/or squamous metaplastic cells (endocervical component) are present. Clinician provided ICD10: Z0 1.419 Performed by: Jaz amin, Fibrous Wallboard Inspector (ASCP) Electronically signed by: Martha Childs MD, [...] amplification test detects fourteen high-risk HPV types (16,18,31,33,35,39,45,51,5 2,56,58,59,66,68) without differentiation. HPV Genotype Reflex Criteria not met, HPV Genotype not performed. Urinalysis Reviewed date:04/30/2024 09:20:32 AM Interpretation: Performing Lab: Notes/Report: PH 5.0 PROTEIN Neg GLUCOSE Neg BLOOD Neg SURGICAL PATHOLOGY Reviewed date:08/26/2024 12:24:34 PM Interpretation: Performing Lab:Testing performed or reported by [facility], a Service of [facility], [address] [place] [address] Richardson Nielsen MD, Depot Manager [facility]# [id number] Notes/Report: Patient Name: WEI BIANCHI Lab Patient : 1965 (Age: 58) Collection Date: 08/24/2024 Accession Date: 08/24/2024 Sign Out Date: 08/26/2024 Tissue Source: 1:ECC 2:CX BX 3:00 3:CX BX 9:00 4:CX BX 12:00 Final Diagnosis: 1. Endocervix, curettage: - Fragments of unremarkable cervical squamous epithelium and endocervical glandular epithelium, negative for squamous intraepithelial lesion. 2. Cervix, 3 o'clock, biopsy: - Cervical squamous and endocervical glandular epithelium, negative for squamous intraepithelial lesion. 3. Cervix, 9 o'clock, biopsy: - Cervical squamous epithelium, negative for squamous intraepithelial lesion. 4. Cervix, 4 o'clock, biopsy: - Cervical squamous epithelium, negative for squamous intraepithelial lesion. Primary Pathologist:Julito Leyva M.D. electronically signed out by: Julito Leyva M.D. / MALENA Clinical History: Low-grade squamous epithelial lesion on cytologic smear of cervix Gross Description: Part 1. Labeled endocervical curettings . Received in formalin is a 1.0 x 0.9 x 0.1 cm aggregate of translucent mucus with red, hagen tissue. The specimen is entirely submitted. 1- multiple pieces, x 2. (EG)* Part 2. Labeled 3: 00 . Received in formalin and filtered is a 0.3 x 0.2 x 0.1 cm aggregate of hagen, red tissue. The specimen is entirely submitted. 1- multiple pieces, x 2. (EG)* Part 3. Labeled 9: 00 . Received in formalin is a 0.3 x 0.3 x 0.2 cm soft hagen tissue. The specimen is entirely submitted. 1-1 piece, x 2, EOE. (EG)* Part 4. Labeled 4: 00 . Received in formalin is a 0.4 x 0.3 x 0.1 cm soft hagen, red tissue. The specimen is entirely submitted. 1-1 piece, x 2, EOE. (EG)* As of July 05, 2023, the specimen processing and staining is performed at [facility], [address] [place] [address] (CLIA#[id number]). Its performance characteristics [facility]. Hamilton Burger M.D. Depot Manager of Surgical Pathology, Erna Hager M.D. Depot Manager Cytopathology Phone #: [phone], On-Call Pathologist: [id number] Reason For Referral No Information Medications Medication [...] Status W/U Status Risk Notes Problem Menopause (234850650) Menopausal and female climacteric states (N95.1) Active confirmed Problem Postmenopausal atrophic vaginitis (74911991) Postmenopausal atrophic vaginitis (N95.2) Active confirmed Problem Dysplasia of cervix (37501764) Dysplasia of cervix, unspecified (622.10) Active confirmed Diag Problem Menopausal symptom (84210835) Symptomatic menopausal or female climacteric states (627.2) Active confirmed Diag Problem Gynecological examination normal (734637492401945) Routine gynecological examination (V72.31) Active confirmed Major Vital Signs Temperature 97.7 degrees Fahrenheit 08/24/2024 Blood pressure diastolic 80 mm Hg 08/24/2024 Height 63 in 08/24/2024 Blood pressure systolic 124 mm Hg 08/24/2024 Weight 137 lbs 08/24/2024 BMI 24.27 kg/m2 08/24/2024 Encounters Encounter Location Date Provider Diagnosis [facility] [address] [place] [address] 04/30/2024 Fern Chin Encounter for gynecological examination (general) (routine) without abnormal findings Z01.419 ; Encounter for screening mammogram for malignant neoplasm of breast Z12.31 ; Other specified disorders of bone density and structure, multiple sites M85.89 and Postmenopausal atrophic vaginitis N95.2 Total [facility] [address] [place] [address] 08/24/2024 Fern Chin Low grade squamous intraepithelial lesion on cytologic smear of cervix (LGSIL) R87.[address] [facility] [address] [place] [address] 07/27/2024 Fern Chin Total [facility] [address] [place] [address] 08/30/2024 Fern Chin Assessments Encounter Date Diagnosis (ICD Code) Assessment Notes Treatment Notes Treatment Clinical Notes Section Notes 04/30/2024 Encounter for gynecological examination (general) (routine) without abnormal findings (ICD-10 - Z01.419) PAP TEST WITH HPV TYPING WAS OBTAINED. 08/24/2024 Low grade squamous intraepithelial lesion on cytologic smear of cervix (LGSIL) (ICD-10 - R87.612) DISCUSSED PAP TEST RESULTS, LSIL AND NEED FOR COLPOSCOPY. DISCUSSED COLPOSCOPY PROCEDURE AND PAT AGREED TO PROCEED. DISCUSSED FINDINGS. WILL CALL PAT WITH BIOPSY RESULTS. 04/30/2024 Encounter for screening mammogram for malignant [...] Screening 11/20/2022 Next Appt Details Provider Name:Fern Gibson anne-marieceleste, 05/05/2025 10:00:00 AM, [address], [place], [address], Insurance Providers Payer Name Payer Address Payer Phone Subscriber Number Group Number Insured Name Patient Relationship to Insured Coverage Start Date Coverage End Date [employer] [place] [address] [place] [address] [id number] WEI BIANCHI Self - patient is the [...] densit y and structure, multiple sites M85.89 Low grade squamous intraepit helial lesion on cytologic smear of cervix (LGSIL) R87.612 Surgical History Surgery Date(Month/Year) Ablation Bilateral Tubal Ligation Breast Implants Left Clavicle Repair Thumb Tendonitis Colonoscopy Hospitalization History Reason Date(Month/Year) See Surgical Hx 4 Vaginal Deliveries
[2024-09-13 11:15] LABS: Appearance Urine Hazy; Color Urine Yellow; Glucose Urine UA Negative (Negative); Leukocyte Esterase Urine Trace (Negative); Nitrite Urine Negative (Negative); Specific Gravity - Urine >= 1.030 (1.005-1.025); UMIC TRIGGER UA YES; Urine Blood Negative (Negative); Urine Ketones Negative (Negative); Urine Protein Negative (Neg-Trace)
[2024-09-13 11:41] LABS: Creatinine Urine 187.82 mg/dL; Microalbum/Creatinine Ratio Ur 7.4 ug/mg cr (<30)
[2024-09-13 11:47] LABS: Bacteria Urine Trace (None Seen); Hyaline Casts Urine 0-2 /LPF (0-2); Other Crystals Urine Present; RBC Urine 0-2 /HPF (0-2); Squamous Epithelial Cell Urine 0-2 /HPF (0-2); WBC Urine 0-5 /HPF (0-5)
[2024-09-13 11:55] LABS: Alanine Aminotransferase 23 U/L (0-31); Albumin Level 4.1 g/dL (3.5-5.0); Anion Gap 12 (12-20); Aspartate Amino Transferase 28 U/L (5-31); Bilirubin Total 0.7 mg/dL (0.0-1.0); Blood Urea Nitrogen 17 mg/dL (9-16); Calcium 9.2 mg/dL (8.4-10.2); Carbon Dioxide 27 mmol/L (22-29); Chloride 105 mmol/L (96-108); Cholesterol 273 mg/dL (<200); Estimated Glomerular Filt Rate > 60; Glucose Fasting 99 mg/dL (60-99); HDL Cholesterol 88 mg/dL (>40); LDL Cholesterol Calculated 158 mg/dL (<100); Sodium 140 mmol/L (135-145); Total Protein 6.7 g/dL (6.5-8.0); Triglycerides 135 mg/dL (<150)
[2024-09-13 12:07] LABS: Alkaline Phosphatase 65 U/L (39-117); TSH reflex Free T4 3.04 uIU/mL (0.32-4.0)
== END 2024-09-13 08:10 | disposition home or self-care (01) ==
LOC: HO.WFDLDS 08:09
PROVIDERS: Visit Provider Nurse Practitioner Family
DX: Z00.00 Encounter for general adult medical examination without abnormal findings (principal); M85.80 Other specified disorders of bone density and structure, unspecified site; I25.10 Atherosclerotic heart disease of native coronary artery without angina pectoris; Z87.891 Personal history of nicotine dependence; J44.9 Chronic obstructive pulmonary disease, unspecified; E78.2 Mixed hyperlipidemia
CPT/HCPCS: 36415; 80053; 80061; 81001; 82043; 82570; 84443

== ENCOUNTER 2024-09-14 08:58 | Outpatient (AMB) | payer BC, SELFPAY ==
--- NOTE | 2024-09-14 09:01 | MHC.PC.OV ---
Vital Signs 09/14/24 09:05 Height 5 ft 3 in Weight 141 lb 2 oz BMI 25.0 BP 107/68 Blood Pressure Location Lt brachial Position Sitting Respiration 12 Pulse 68 Pulse Source Pulse Oximeter Temp 97.4 F Temp Source Oral Pulse Oximetry (%) 97 Oxygen Delivery Method Room Air Intake Visit Reasons: 6 mo labs 1 week before HLD fu Intake Note: Follow up to review labs. Air Brush Operator Required: No Allergies No Known Allergies Allergy (Verified 09/14/24 09:26) Medication List - Last Reconciled 09/14/24 by Jacqueline [place], OVERHEAD DISTRIBUTION ENGINEER- albuterol sulfate 90 mcg/actuation (Ventolin HFA) 2 puffs inhalation Q4-6H PRN atorvastatin 40 mg PO BEDTIME bisacodyl (Dulcolax (bisacodyl)) 20 mg (4 x 5 mg) PO ONCE 1 day hydroxyzine HCl 25 mg PO BID PRN meloxicam 15 mg PO DAILY 90 days polyethylene glycol 3350 (Miralax) 238 grams PO ONCE Tobacco use date assessed: 09/14/24 Dental Screening Dental Screen Date: 09/14/24 Did you have a dental visit in the last 12 months?: Yes Did you have a dental problem in the last 6 months where you did not have access to dental care?: No Was dental information given to patient?: Patient has dentist HPI HPI Comments History of Present Illness Details 58-year-old female with fatty liver disease, former smoker, hyperlipidemia, COPD, osteoarthritis, CAD, osteopenia, emphysema, hearing loss, MDD, seasonal affective disorder Status post breast implants, tubal ligation Social: working at [employer] 4 days/week, will be looking for new job. Health maintenance [facility] smear summer [facility] Mammogram 05/2024 normal Colonoscopy 2017, polyps repeat in 5 years (2022) Next one scheduled Apr 2024 DEXA 06/2023 Osteopenia based on the lowest T-score value of -1.9 in the femoral neck applying World Health Organization criteria. 2. 10-YEAR FRACTURE RISK PREDICTION, FRAX: Major osteoporotic fracture (clinical spine, forearm, hip or shoulder) 14.7%. Hip fracture 1.8%. (repeat 2028) Tdap 2023 Flu UTD 07/2024 hearing test + hearing loss, needs hearing aides Specialists Cardiology - had echo done. Was ordered stress test, did not make it before insurance referral . Does not feel like needs this @ this time. [facility] Cards Pulm Chiro felt worse after treatments in December. Derm - appt in [place] October 28, 2024 rash on upper lip and scabs back of scalp History of Present Illness - The patient is a 58-year-old female presenting with a routine follow-up for multiple chronic conditions, including hyperlipidemia, COPD, coronary artery disease, sensorineural hearing loss, and depression. - Depression has fluctuated with seasonal variation, worsening during the recent winter. Previously stabilized with sertraline, patient ceased medication during -, experiencing a decline in mental health this past fall. Self-reported significant mental distress, contemplating restarting medication with healthcare guidance. Denies si/hi. - Chronic back pain has been persistent and worsens during extended periods of sitting; noted impacts on mobility and capacity to fulfill occupational responsibilities. Wants FMLA completed, missed work. - Sensorineural hearing loss has been confirmed via recent audiological evaluation. The patient is in process of obtaining hearing aids with assistance from [employer]. Needs clearance form completed by me. Done today and returned to her. - COPD management includes albuterol for occasional wheezing, which may be attributed to environmental factors, notably exposure to musty environments. Not taking antihistamines at this time. Active w pulm for CT survellience - Adherence to atorvastatin for hyperlipidemia is irregular, affecting cholesterol management. There is no noted improvement in cholesterol profile due to inconsistent intake. - Osteopenia management with calcium and vitamin D is inconsistent - Awareness of upcoming gastroenterological evaluation for ongoing health management Infrequent use of inhaler Meloxicam works well for pain Hydroxyzine working well. Physical Exam General: Well developed, well nourished, in no acute distress. Appears stated age. Head: Normocephalic, atraumatic. Eyes: Pupils are equal, round and reactive to light and accommodation. Conjunctivae are clear. . Lungs: Clear to auscultation bilaterally. faint exp wheeze bul Heart: Regular rate and rhythm. No murmurs, click, rubs or gallops are noted. Extremities: No clubbing, cyanosis nor edema is noted. Psych: Mood and affect appropriate Results - Diagnostic Tests: Audiometry test conducted showing moderately severe bilateral sensorineural hearing loss. 08/2024 labs no improvement in lipids,. otherwise labs normal Discussion Notes During today's visit, I discussed with the patient the management of her chronic conditions, particularly focusing on her mental health and chronic back pain. She expressed interest in resuming pharmacological treatment for her depression, indicating past benefit from sertraline. I recommended an alternative medication, Duloxetine, which could address both mood and pain issues. The proposed start involves a gradual increase in dosage. Additionally, I emphasized the importance of consistent medication adherence, particularly regarding atorvastatin and Calcium plus vitamin D supplements, to manage hyperlipidemia and osteopenia. We discussed the significance of lifestyle modifications to alleviate environmental factors contributing to her symptoms, notably considering allergens in her work environment. I proposed regular follow-up appointments, including a future visit in 6-8 weeks to reassess her response to the Duloxetine, and the potential need for adjusting her treatment plan. Additionally, counseling options were offered to support her mental health journey, and logistic support from [facility] was provided. Assessment and Plan 1. Depression Start Duloxetine to address depressive symptoms and associated chronic pain. Initiated counseling referral to support behavioral health needs. 2. Chronic Back Pain Start Duloxetine anticipated to address multifactorial presentation. Discussions about the feasibility of exercise included. 3. Sensorineural Hearing Loss Cleared for hearing aids; administrative follow-through assured to facilitate acquisitions. 4. COPD Continued use of albuterol; initiated recommendations for allergy management through [id number] antihistamines. 5. Hyperlipidemia Patient education provided on atorvastatin regimen's importance; reinforcement of consistent medication adherence. 6. Osteopenia Reinforcement of calcium and vitamin D supplementation compliance advised for optimized bone health. 7. Coronary Artery Disease Continued monitoring along with other comorbidities advised. Patient Instructions - Take Duloxetine 20mg at bedtime for two weeks, then add a morning dose. - Adhere consistently to atorvastatin, calcium, and vitamin D supplements. - Consider using an antihistamine for potential allergen-related wheezing. - Start counseling through the [facility] team. - Follow up for duloxetine efficacy in 6-8 weeks. - Seek help if feeling overwhelmed or in crisis - FMLA form completed after the visit and mailed to the patient, per her request. RTO 6 weeks to fu on Cymbalta start Consent Patient was informed and verbally consented to the use of an ambient scribe for clinic note documentation during this visit. Total time spent caring for the patient today was 45 minutes. This includes time spent before the visit reviewing the chart, time spent during the visit, and time spent after the visit on documentation, reviewing laboratory results, diagnostic imaging, medications, performing a medically necessary evaluation, counseling on diagnoses, care coordination, ordering appropriate tests, ordering appropriate medications, review of tests performed by other providers, reporting test results with the patient, communication with other healthcare providers. [facility] Medical History (Updated 09/14/24 @ 17:02 by JEFFREY Darnell-) Fatty liver Hyperlipidemia Personal history of nicotine dependence Surgical History (Updated 01/06/24 @ 11:07 by Kelsey Lopez PA-C) History of breast implant History of tubal ligation Family History Father Congestive heart failure (CHF) Pacemaker Other Mental health disorder Substance use disorder Social History (Reviewed 01/27/24 @ 10:28 by Gemma Avendano [facility]) Housing: House Alcohol intake: current Alcohol intake frequency: a few times a week Patient Tobacco Use Status: Former Tobacco user e-Cigarette/Vaping Use: Never Used Second Hand Smoke Exposure: No service: No Current occupational status: employed Cognitive needs: No Hearing needs: No Vision needs: No Questionnaire PHQ-9 Over the last 2 weeks, how often have you been bothered by any of the following problems? 1. Little interest or pleasure in doing things: not at all 2. Feeling down, depressed, or hopeless: not at all 3. Trouble falling or staying asleep, or sleeping too much: not at all 4. Feeling tired or having little energy: not at all 5. Poor appetite or overeating: not at all 6. Feeling bad about yourself - or that you are a failure or have let yourself or your family down: not at all 7. Trouble concentrating on things, such as reading the newspaper or watching television: not at all 8. Moving or speaking so slowly that other people could have noticed. Or the opposite - being so fidgety or restless that you have been moving around a lot more than usual: not at all 9. Thoughts that you would be better off or of hurting yourself in some way: not at all Total score: 0 Depression Screening Interpretation: Negative Depression Screening Done: Yes 85523 - PHQ-9 Billing: Yes Source: Developed by Drs. Teodoro Hsieh, Daisha Valenzuela, Roberto Corona and colleagues, with an educational rebecca from [employer]. Thrive Questionnaire Date Thrive assessed: 09/14/24 I am a: Patient What is your living situation today?: I have a steady place to live Within the past 12 months, did the food you bought not last and you didn't have the money to get more?: Never true Do you have trouble paying for medicines?: No Do you have trouble getting transportation to medical appointments?: No Do you have trouble paying your heating and electricity bill?: No Do you have trouble taking care of your child, family member or friend?: No Do you have trouble with day-to-day activities such as bathing, preparing meals, shopping, managing finances, etc.?: No Are you currently unemployed and looking for a job?: No Are you interested in more education?: No Please select the resources that you would like help with: None Currently or been in a relationship where the following occur: No concerns reported THRIVE Score: 0 AUDIT C Alcohol Use Questionnaire (AUDIT-C) 1. How often do you have a drink containing alcohol?: 2-3 times a week 2. How many drinks containing alcohol do you have on a typical day when you are drinking?: 1 or 2 3. How often do you have six or more drinks on one occasion?: Monthly Total Score: 5 Score Reviewed/Action Taken: Yes MARY-7 AMB Questionnaire MARY-7 Date MARY - 7 assessed: 09/14/24 Feeling nervous, anxious, or on edge: 1 = Several days Not being able to stop or control worryin = Several days Worrying too much about different things: 1 = Several days Trouble relaxin = Not at all Being so restless that it is hard to sit still: 0 = Not at all Becoming easily annoyed or irritable: 0 = Not at all Feeling afraid as if something awful might happen: 1 = Several days Total MARY-7 score (0-4 normal; 5-9 mild; 10-14 moderate; 15-21 severe): 4 Source: Developed by Drs. Teodoro Hsieh, Daisha Valenzuela, Roberto Corona and colleagues, with an educational reebcca from [employer]. MARY-7 Assessment Billing MARY-7 Assessment Tool: MARY-7 Assessment 01768 Physical exam (Primary Care) Vital Signs: Last Vital Signs Temp 97.4 F 09/14/24 09:05 Pulse 68 09/14/24 09:05 Resp 12 09/14/24 09:05 BP 107/68 09/14/24 09:05 Pulse Ox 97 09/14/24 09:05 Oxygen Delivery Method Room Air 09/14/24 09:05 BMI result Body Mass Index 25.0 Tobacco/Smoking Status: Tobacco use Status Tobacco use date assessed 09/14/24 09/14/24 09:05 Patient Tobacco Use Status Former Tobacco user 09/14/24 09:01 e-Cigarette/Vaping Use Never Used 09/14/24 09:01 PHQ-9: PHQ-9 Score PHQ-9: Total score 0 09/14/24 15:22 Depression Screening Interpretation: Negative Thrive Assessment: Date of Thrive Assessment Date Thrive assessed 09/14/24 09/14/24 09:02 Currently or been in a relationship where the following occur: No concerns reported Coding Level of Care Code Est Pt Level 5 (04707) Complex EM visit Add On G2211 Diagnoses Moderate episode of recurrent major depressive disorder F33.1 Major depression episode severity: moderate Encounters for administrative purpose Z02.9 CAD in [place] artery I25.10 Panlobular emphysema J43.1 COPD type: emphysema Emphysema type: panlobular MARY (generalized anxiety disorder) F41.1 Hard of hearing H91.90 Mixed hyperlipidemia E78.2 Hyperlipidemia type: mixed hyperlipidemia Osteopenia of multiple sites M85.89 Osteopenia location: multiple sites Additional Codes MARY-7 Assessment Billing - MARY-7 Assessment Tool: MARY-7 Assessment 39141 ([id number]) PHQ-9 - 73651 - PHQ-9 Billing: Yes ([id number]) Assessment & Plan Assessment & Plan (1) MDD (major depressive disorder), recurrent episode: Code(s): F33.9 - Major depressive disorder, recurrent, unspecified Category: Medical Qualifiers: Major depression episode severity: moderate Qualified Code(s): F33.1 - Major depressive disorder, recurrent, moderate (2) Encounters for administrative purpose: Comment: Intermittent leave 08/26/24-02/26/25 1 time per 1 week lasting 1 day MDD and back pain Code(s): Z02.9 - Encounter for administrative examinations, unspecified Category: Medical (3) CAD in [place] artery: Comment: 12/24/23 Ct of chest + CAD Code(s): I25.10 - Atherosclerotic heart disease of [place] coronary artery without angina pectoris Category: Medical (4) COPD (chronic obstructive pulmonary disease): Code(s): J44.9 - Chronic obstructive pulmonary disease, unspecified Category: Medical Qualifiers: COPD type: emphysema Emphysema type: panlobular Qualified Code(s): J43.1 - Panlobular emphysema (5) MARY (generalized anxiety disorder): Comment: prn hydroxyzine 25 mg po BID PRN Code(s): F41.1 - Generalized anxiety disorder Category: Medical (6) Hard of hearing: Comment: 07/2024 hearing test needs hearing aides Code(s): H91.90 - Unspecified hearing loss, unspecified ear Category: Medical (7) Hyperlipidemia: Comment: Start atorvastatin 40mg QD. Recheck lipids in 6 mo,titrate to LDL <70 Cardiology referral active, for further workup of hyperlipidemia and CAD per her request Code(s): E78.5 - Hyperlipidemia, unspecified Category: Medical Qualifiers: Hyperlipidemia type: mixed hyperlipidemia Qualified Code(s): E78.2 - Mixed hyperlipidemia (8) Osteopenia: Comment: DEXA 06/2023Osteopenia based on the lowest T-score value of -1.9 in the femoral neck applying World Health Organization criteria. 2. 10-YEAR FRACTURE RISK PREDICTION, FRAX: Major osteoporotic fracture (clinical spine, forearm, hip or shoulder) 14.7%. Hip fracture 1.8%. Code(s): M85.80 - Other specified disorders of bone density and structure, unspecified site Category: Medical Qualifiers: Osteopenia location: multiple sites Qualified Code(s): M85.89 - Other specified disorders of bone density and structure, multiple sites Plan . Orders: Referrals Nurse Navigator Referral F33.9 - Major depressive disorder, recurrent, unspecified Medications: New duloxetine (Cymbalta) take 1 capsule at bedtime x 2 weeks than increase to twice per day 20 mg PO BID 60 caps 1RF Refilled atorvastatin 40 mg PO BEDTIME 90 tabs 1RF Patient Instructions: National Suicide and Crisis Lifeline: Available 24 hours a day, 7 days a week, 365 days a year Dial 988 with any telephone to speak to someone [facility] (Mental / Behavioral health therapist: [address] [place] [address] [facility]: [address] [place] [address] Open from 10am - 12pm (walk ins welcome) [facility] Crisis Services: [address] [place] [address] Walk in hours from 10am - 12pm Behavioral health Network: [address] [place] [address] [place] [address] [phone] Friday through Friday 8am - 8pm Friday and Friday 9am - 5pm Crisis Hotlines Suicide prevention, domestic violence, and other crisis hotlines for youth, young adults, and their friends and families. [facility] Safeline: The [facility] Safeline helps youth who have run away, are thinking about running away, or who already ran away but are ready to come home. Parents and guardians can also contact the hotline if they are worried about their child running away or if their child has already left home. The hotline is available 24 hours a day, seven days a week. Youth, parents, and guardians can also use the online chat feature on the [facility] Safeline's website to ask for help and get support, [place] [address]. [place] [facility] National Suicide Prevention Lifeline: The National Suicide Prevention Lifeline is a network of local crisis centers that are available 18/11 to provide support for youth and adults who are in any kind of emotional crisis. In addition to the main hotline number listed above, there are several other numbers to call depending on your needs: Lebanese Language: Deaf and Hard of Hearin1-356.265.6225 Veterans: Disaster Distress: Anyone can also use their online chat feature on their website. National Suicide Prevention Lifeline [facility] Helpline: The [facility] Helpline is available to anyone in [place] who is need of emotional support. Anyone can call or text the helpline to receive help from specially trained volunteers. [place] high school and college students can also get online support through the IMHear_ program. For high school students, volunteers ages 15-18 are available Friday- from 6-9PM. For college students, IM[employer]ear_ is available Friday-Friday from 5-9PM. The [place] Project - The [place] Project is a 18/11 crisis intervention and suicide prevention hotline for LGBTQ youth. Youth can also text 5o9 to for support, or use the online chat feature on the [employer]'s website. [employer] is available Friday-Friday between 3-10PM. [employer] is available seven days a week between 3-10PM. SafeLink: SafeLink is for anyone who is being affected by domestic violence or dating violence. Volunteers at [employer] speak Tristanian and Lebanese, and [employer] also has a service that can provide translation in more than 130 languages. TTY:
[2024-09-14 09:05] VITALS: BP 107/68; PULSE 68; RESP 12; TEMP 36.3; O2SAT 97; BMI 25.0
--- OUTSIDE RECORDS SUMMARY | 2024-09-14 09:31 | XMS_ITS ---
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 :1965???Age:57 Y???Sex:Female D ate:11/26/2023 Address:[address] [place], [place] [id number] Pcp:ARELI CASTILLO Subjective: * Chief Complaints: * ???1. 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 * Medical History:? Objective: * Vitals:? Assessment: Plan: * Treatment: * Images: Billing Information: * Visit Code:? * Procedure Codes:? * Electronic signature of Fabiana Chin MD on 09/14/2024 at 09:31 AM EDT Sign off status: Pending * Appointment Provider:?Fern Chin M.D. Date:?11/26/2023 Generated for Desiree pierce/Carter/Lindsay on:?09/14/2024 09:31 AM EDT
--- OUTSIDE RECORDS SUMMARY | 2024-09-14 09:31 | XMS_ITS | Patient Health Record ---
Author Organization [facility] Address [address] [place] [address] [address] [place] [address] Care Team Providers Care Credit Collection Associate Name Role Phone O CHRISTIANO CELAYA Primary Care Provider Fern Torres Unavailable [phone] Allergies No Known Allergies Results Component Value Reference Range Notes SURGICAL PATHOLOGY Reviewed date:08/26/2024 12:24:34 PM Interpretation: Performing Lab:Testing performed or reported by [facility], a Service of [address] [address] Richardson Nielsen MD, Business Intelligence Director [facility]# [id number] Notes/Report: Patient Name: WEI BIANCHI Lab Patient [...] specimen processing and staining is performed at [facility], [address] [place] [address] (CLIA#[id number]). Its [facility]. Hamilton Burger M.D. Business Intelligence Director of Surgical Pathology, Erna Hager M.D. Business Intelligence Director Cytopathology Phone #: [phone], On-Call Pathologist: [id number] Urinalysis Reviewed date:04/30/2024 09:20:32 AM Interpretation: Performing Lab: Notes/Report: PH 5.0 PROTEIN Neg GLUCOSE Neg BLOOD Neg [id number] IGP No Culture 30 Plus Reviewed date:05/08/2024 11:45:15 AM Interpretation: Performing Lab:[facility], [address] [place] [address], Phone - [phone], Director - [facility] Notes/Report: Clinical Information:Vaginal/Cervical, LMP: Men o 2010 [id number] Dates / Results....10/27/21 NIL, Neg HPV Other..............Post Menopausal No. of containers..01 ThinPrep Vial DIAGNOSIS: EPITHELIAL CELL ABNORMALITY. LOW GRADE SQUAMOUS INTRAEPITHELIAL LESION (LSIL). Specimen adequacy: Satisfactory for evaluation. Endocervical and/or squamous metaplastic cells (endocervical component) are present. Clinician provided ICD10: Z0 1.419 Performed by: Jaz amin, Conductor Pullman (ASCP) Electronically signed by: Martha Childs MD, [...] Report Reviewed date:05/08/2024 11:44:10 AM Interpretation: Performing Lab:[facility], [address] [place] [address], Phone - [phone], Director - [facility] Notes/Report: Clinical Information:Vaginal/Cervical, LMP: Men o 2010 [id number] Dates / Results....10/27/21 NIL, Neg HPV Other..............Post Menopausal No. of containers..01 ThinPrep Vial Reason For Referral No Information Medications Medication [...] Status W/U Status Risk Notes Problem Menopause (775776714) Menopausal and female climacteric states (N95.1) Active confirmed Problem Postmenopausal atrophic vaginitis (72653958) Postmenopausal atrophic vaginitis (N95.2) Active confirmed Problem Dysplasia of cervix, unspecified (622.10) Active confirmed Diag Problem Menopausal symptom (25579588) Symptomatic menopausal or female climacteric states (627.2) Active confirmed Diag Problem Gynecological examination normal (622951183421643) Routine gynecological examination (V72.31) Active confirmed Major Vital Signs Temperature 97.7 degrees Fahrenheit 08/24/2024 Blood pressure diastolic 80 mm Hg 08/24/2024 Height 63 in 08/24/2024 Blood pressure systolic 124 mm Hg 08/24/2024 Weight 137 lbs 08/24/2024 BMI 24.27 kg/m2 08/24/2024 Encounters Encounter Location Date Provider Diagnosis [facility] [place] [address] [address] [address] [address] 04/30/2024 Fern Chin Encounter for gynecological examination (general) (routine) without abnormal findings Z01.419 ; Encounter for screening mammogram for malignant neoplasm of breast Z12.31 ; Other specified disorders of bone density and structure, multiple sites M85.89 and Postmenopausal atrophic vaginitis N95.2 [facility] [place] [address] [employer] [facility] [address] [place] [address] 08/24/2024 Fern Chin Low grade squamous intraepithelial lesion on cytologic smear of cervix (LGSIL) R87.612 [facility] [address] [place] [address] 07/27/2024 Fern Chin [facility] [address] [place] [address] 08/30/2024 Fern Chin Assessments Encounter Date Diagnosis [...] Provider Name:Fern walls, 05/05/2025 10:00:00 AM, [address], [address], [place], [address], Insurance Providers Payer Name Payer Address Payer Phone Subscriber Number Group Number Insured Name Patient Relationship to Insured Coverage Start Date Coverage End Date [employer] [place] [address] [place] [address] [id number] WEI BIANCHI Self - patient is the [...]
== END 2024-09-14 09:51 | disposition home or self-care (01) ==
LOC: HO.HMCFM 08:59
PROVIDERS: PCP Nurse Practitioner Family; Visit Provider Nurse Practitioner Family
DX: J43.1 Panlobular emphysema (principal); F33.1 Major depressive disorder, recurrent, moderate; I25.10 Atherosclerotic heart disease of native coronary artery without angina pectoris; F41.1 Generalized anxiety disorder; H91.90 Unspecified hearing loss, unspecified ear; E78.2 Mixed hyperlipidemia; M85.89 Other specified disorders of bone density and structure, multiple sites

== ENCOUNTER → 2024-09-14 08:58 | Outpatient (BNVA) | payer BC, SELFPAY | PROVIDERS: PCP Nurse Practitioner Family; Visit Provider Nurse Practitioner Family | DX: I25.10 Atherosclerotic heart disease of native coronary artery without angina pectoris (principal); J43.1 Panlobular emphysema; H90.5 Unspecified sensorineural hearing loss; F33.1 Major depressive disorder, recurrent, moderate; F41.1 Generalized anxiety disorder; E78.2 Mixed hyperlipidemia; M85.89 Other specified disorders of bone density and structure, multiple sites; Z87.891 Personal history of nicotine dependence | CPT/HCPCS: 96127 ==

== ENCOUNTER 2024-10-04 09:48 | Day surgery (SDC) | payer BC, SELFPAY ==
[2024-09-30 12:46] VITALS: BMI 25.0
--- NOTE | 2024-10-01 12:44 | HO.ANESPROP2 ---
Documented by User: Janeth Mullins NP 10/01/24 12:47 HPI - Anesthesia Eval Consult details Narrative: 58yo F for Colonoscopy Eval by [facility]ology for incidental calcifications on CT. No symptoms or concerns per patient. Stress and Echo ordered at that time for surveillance. ECHO unremarkable. Stress not completed. Per cardiology workload, OK to proceed if no new cardiac concerns/symptoms. Per pt, no issues. 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) Personal history of nicotine dependence Fatty liver Hyperlipidemia Family History Family History Father Congestive heart failure (CHF) Pacemaker Other Mental health disorder Substance use disorder Surgical History Surgical History (Updated 10/04/24 @ 10:07 by Sintia Bryan RN) History of surgery H/O shoulder surgery History of tubal ligation History of breast implant Social History Social History Housing: House Alcohol intake: current Alcohol intake frequency: a few times a week Patient Tobacco Use Status: Former Tobacco user e-Cigarette/Vaping Use: Never Used Second Hand Smoke Exposure: No Use of substances other than those prescribed or required for medical reasons: Yes Substance Use Type Other:: OCCASSIONALLY Are you DNR?: No Advance Directives: No Advance Directives Information Provided: Yes Patient : No : No Poor oral hygiene: No service: No Current occupational status: employed Cognitive needs: No Hearing needs: No Vision needs: No Meds Allergies Allergy/AdvReac Type Severity Reaction Status Date / Time No Known Allergies Allergy Verified 09/14/24 09:26 Home Medications ?Medication ?Instructions ?Recorded ?Confirmed ?Last Taken ?Type albuterol sulfate 90 mcg/actuation 2 puff inhalation Q4-6H PRN 06/13/23 09/14/24 Unknown History aerosol inhaler (Ventolin HFA) Exam Height,Weight and Vital Signs: Height 5 ft 3 in Weight 64.013 kg Pertinent Lab Results Pertinent Lab Results: Laboratory Tests 05/28/23 09/13/24 08:45 08:12 WBC 5.1 Hgb 13.8 Hct 42.1 Plt Count 301 Sodium 140 Potassium 4.0 Chloride 105 Carbon Dioxide 27 BUN 17 H Creatinine 0.64 Narrative Narrative: EKG 2023 Details: EKG with sinus rhythm at 73/Min; no significant ST-T changes and otherwise unremarkable. Normal CA and corrected QT. ECHO 2023 Conclusions: - The left ventricular systolic function is normal. The calculated ejection fraction is 67% by biplane method. - No obvious valvular pathology seen on this study. Assessment and Plan Assessment Anesthesia Assessment: Chart Reviewed Documented by User: Andrew Golden MD 10/04/24 11:15 [facility] Past Medical History Medical History (Updated 09/14/24 @ 17:02 by Jacqueline Colorado, [facility]) Personal history of nicotine dependence Fatty liver Hyperlipidemia Family History Family History Father Congestive heart failure (CHF) Pacemaker Other Mental health disorder Substance use disorder Family history of problems with anesthesia: No Surgical History Surgical History (Updated 10/04/24 @ 10:07 by Sintia Bryan RN) History of surgery H/O shoulder surgery History of tubal ligation History of breast implant History of Problems with Anesthesia: No Social History Social History Housing: House Alcohol intake: current Alcohol intake frequency: a few times a week Patient Tobacco Use Status: Former Tobacco user e-Cigarette/Vaping Use: Never Used Second Hand Smoke Exposure: No Use of substances other than those prescribed or required for medical reasons: Yes Substance Use Type Other:: OCCASSIONALLY Are you DNR?: No Advance Directives: No Advance Directives Information Provided: Yes Patient : No : No Poor oral hygiene: No service: No Current occupational status: employed Cognitive needs: No Hearing needs: No Vision needs: No Meds Allergies Allergy/AdvReac Type Severity Reaction Status Date / Time No Known Allergies Allergy Verified 09/14/24 09:26 Home Medications ?Medication ?Instructions ?Recorded ?Confirmed ?Last Taken ?Type albuterol sulfate 90 mcg/actuation 2 puff inhalation Q4-6H PRN 06/13/23 09/14/24 Unknown History aerosol inhaler (Ventolin HFA) Exam Airway Mallampati Class: II TM Dist: >3cm Neck ROM: Full Assessment and Plan Assessment Anesthesia Assessment: Anesthesia Plan Discussed Final Anesthetic Review Family History of Problems with Anesthesia: No History of Problems with Anesthesia: No NPO: Yes ASA Class: II Final Preanesthetic Review: No Changes in Pt Med Stat, Meds/Allgs Chart Reviewed, Consent Obtained/Reviewed and Anes Risks/Benef Reviewed Patient Risk: Low Procedure Risk: Low Anesthetic Plan Anesthetic Plan: TIVA Disposition: Standard PACU
--- NOTE | 2024-10-04 09:38 | MHC.SHP ---
Pre-Procedural Eval Section A - 24 Hr Update-Section A only Date of Service: 10/04/24 The patient is an INPATIENT: No The patient has been examined within 24 hours of the surgical procedure. The History & Physical has been completed within 30 days and I have reviewed it.: No Section B - Complete if H&P > 30 days Chief Complaint: colon cancer screening Relevant Family History (Specify if Yes): No Relevant Social History: Tobacco Use (Former smoker) Present Medications: see Short Stay Collaborative assessment Medical History: Significant History (Fatty liver Breast implant status Hx of smoking Hyperlipidemia) History of Previous Operations: Relevant previous surgery/procedure and date(s) (Tubal ligation status) Allergies: Allergies Allergy/AdvReac Type Severity Reaction Status Date / Time No Known Allergies Allergy Verified 09/14/24 09:26 Review of Systems Sugical H&P ROS: Negative: Constitution, Cardiovascular, Respiratory and Gastrointestinal Exam Surgical H&P Exam: Normal: Heart, Normal: Lungs, Normal: Extremities and Normal: Abdomen Plan Diagnosis/Plan: Unchanged I have reviewed the history and physical and performed a pertinent physical examination on my patient. No changes have occurred unless specified. Time Spent With Patient Time: Total time managing care of this patient today ____ minutes.
[2024-10-04 10:08] VITALS: BMI 24.2
[2024-10-04 10:22] VITALS: BP 121/82; PULSE 72; RESP 16; TEMP 36.7; O2SAT 97
[2024-10-04] MEDS: Lactated Ringers 1,000 ML 100 ML IVCONT (10:29)
--- NOTE | 2024-10-04 12:16 | HO.OPN-COLON ---
Colonoscopy Operative Note Operative Note Date of Service: 10/04/24 Narrative: COLONOSCOPY TILL CECUM WITH BIOPSIES Pre-op diagnosis: Surveillance for colon polyps. Post-op diagnosis:? Colon polyp, Diverticulosis Endoscopist:? Alfa Schwartz MD Anesthesia:?MAC Consent: Indications for the procedure and potential complications of bleeding, perforation, reaction to medications and missed diagnosis were discussed with the patient and informed consent was obtained. Instrument: Olympus PCF H 190 L variable stiffness pediatric colonoscope Monitoring: Vital signs and clinical assessment, intermittent blood pressure monitoring, continuous EKG monitoring, Pulse oximetry and Carbon Dioxide monitoring were done throughout the procedure. Please see anesthesia flowsheet. Colon withdrawl time was 15 minutes. Procedure: The patient was placed in the left lateral decubitis position and pre-procedure medications were administered. After a digital rectal examination of the ano-rectum, the video colonoscope was inserted into the rectum and advanced through the colon to the cecum. The colonoscope was slowly withdrawn in a retrograde panoramic fashion and the colon mucosa was carefully examined including a retroflexed view of the rectum. Findings and interventions are described below. Procedure Difficulty: without difficulty Findings: Terminal Ileum: Not evaluated Cecum: Normal Ascending Colon: Normal Transverse Colon: Normal Descending Colon: Moderate diverticulosis Sigmoid Colon: Moderate diverticulosis Rectum: A 2-3 mm diminutive appearing polyp - removed with a cold biopsy. Ano-rectum: Normal Colon preparation: Excellent after some irrigation. [place] Bowel Preparation Scale Right colon; 3 Transverse colon: 3 Left colon; 3 (0 = Unprepared colon segment with mucosa not seen due to solid stool that cannot be cleared. 1 = Portion of mucosa of the colon segment seen, but other areas of the colon segment not well seen due to staining, residual stool and/or opaque liquid. 2 = Minor amount of residual staining, small fragments of stool and/or opaque liquid, but mucosa of colon segment seen well. 3 = Entire mucosa of colon segment seen well with no residual staining, small fragments of stool or opaque liquid) Impression and Post Procedure Diagnosis: Colonoscopy Findings: One diminutive appearing polyp was removed Moderate diverticulosis seen in the left colon Plan: Pt has a FU appointment on 12/17/24 with Sandy Early NP Repeat Colonoscopy in 5 years if polyps are adenomatous and due to a history of colon polyps. Above findings were reviewed with the patient and relevant handouts were given and the discharge area. BIOPSIES SHOWED: Rectum, polypectomy: Hyperplastic polyp; negative for dysplasia Letter sent to the patient with biopsy results. Patient was placed on the colonoscopy recall list for repeat colonoscopy in 5 years.
[2024-10-04 12:20] VITALS: BP 127/74; PULSE 68; RESP 17; TEMP 36.6; O2SAT 97
[2024-10-04 12:35] VITALS: BP 127/74; PULSE 64; RESP 16; TEMP 36.6; O2SAT 98
== END 2024-10-04 13:06 | disposition home or self-care (01) ==
PROVIDERS: PCP Nurse Practitioner Family; Visit Provider Internal Medicine Gastroenterology
PROC: 0DJD8ZZ Inspection of Lower Intestinal Tract, Via Natural or Artificial Opening Endoscopic (ICD-10-PCS; CPT 45378; principal; 2024-10-04 11:10)
DX: Z12.11 Encounter for screening for malignant neoplasm of colon (principal); Z86.0101 Personal history of adenomatous and serrated colon polyps; K62.1 Rectal polyp; K57.30 Diverticulosis of large intestine without perforation or abscess without bleeding; K64.8 Other hemorrhoids; K76.0 Fatty (change of) liver, not elsewhere classified; E78.5 Hyperlipidemia, unspecified; Z79.899 Other long term (current) drug therapy; Z98.82 Breast implant status; Z98.51 Tubal ligation status; Z87.891 Personal history of nicotine dependence; Z98.890 Other specified postprocedural states
CPT/HCPCS: 45380; 88305

== ENCOUNTER → 2024-10-04 09:48 | Outpatient (BNV) | payer BC, SELFPAY | PROVIDERS: PCP Nurse Practitioner Family; Visit Provider Internal Medicine Gastroenterology | DX: Z12.11 Encounter for screening for malignant neoplasm of colon (principal); D12.8 Benign neoplasm of rectum; K57.90 Diverticulosis of intestine, part unspecified, without perforation or abscess without bleeding | CPT/HCPCS: 45380 ==

== ENCOUNTER 2024-10-14 07:15 | Outpatient (REF) | payer BC, SELFPAY ==
--- NOTE | ~2024-10-14 | CT_ITS ---
CLINICAL HISTORY: Z87.891 - Personal history of nicotine dependence CT lung cancer screening (LDCT) Comparison: None provided Technique: Axial CT images of the chest using low-dose technique. Referring provider counseled the patient on shared decision-making for LDCT screening. Additional counseling was provided on smoking cessation. Effective radiation dose total: DLP 31.4 mGycm, CTDIvol 0.9 mGy. Findings: There is moderate centrilobular emphysema. There is some scarring in the left upper lobe. 2 mm nodule seen in the right upper lobe best seen on image number 31 of series number 5. No other nodules are noted. There are mild coronary artery calcifications. Limited upper abdomen: Unremarkable Other: Impression: LungRADS 2 - Benign Appearance: Continue annual screening with low dose Chest CT in 12 months. ##L2# Category 1: Normal; continue annual screening Category 2: Benign appearance or behavior, continue annual screening Category 3: Probably benign, [address] recommended Category 4A: Suspicious, [address] recommended; may consider PET/CT Category 4B: Suspicious, Additional diagnostics and/or tissue sampling recommended Category 4X: Suspicious, Additional diagnostics and/or tissue sampling recommended Category 0: Recalls (incomplete screen due to Incomplete coverage, Noise, Respiratory motion, Expiration, Obscured by acute abnormality) This document has been electronically signed by: Drake Persaud MD on 10/14/2024 11:13:45
--- OUTSIDE RECORDS SUMMARY | 2024-10-14 07:19 | XMS_ITS | Patient Health Record ---
Author Organization [employer] [facility] Address [address] [place] [address] [address] [place] [address] Care Team Providers Care Fashion Marketer Name Role Phone O CHRISTIANO CELAYA Primary Care Provider Fern Torres Unavailable [phone] Allergies No Known Allergies Results Component Value Reference Range Notes Urinalysis Reviewed date:04/30/2024 09:20:32 AM Interpretation: Performing Lab: Notes/Report: PH 5.0 PROTEIN Neg GLUCOSE Neg BLOOD Neg [id number] IGP No Culture 30 Plus Reviewed date:05/08/2024 11:45:15 AM Interpretation: Performing Lab:[facility], [address] [place] [address], Phone - [phone], Director - [facility] Notes/Report: No. of containers..01 ThinPrep Vial Other..............Post Menopausal Dates / Results....10/27/21 NIL, Neg HPV Clinical Information:Vaginal/Cervical, LMP: Men o 2010 [id number] DIAGNOSIS: EPITHELIAL CELL ABNORMALITY. LOW GRADE SQUAMOUS INTRAEPITHELIAL LESION (LSIL). Specimen adequacy: Satisfactory for evaluation. Endocervical and/or squamous metaplastic cells (endocervical component) are present. Clinician provided ICD10: Z0 1.419 Performed by: Jaz amin, Inspector Health Care Facilities (ASCP) Electronically signed by: Martha Childs MD, [...] Report Reviewed date:05/08/2024 11:44:10 AM Interpretation: Performing Lab:[facility], [address] [place] [address], Phone - [phone], Director - [facility] Notes/Report: Clinical Information:Vaginal/Cervical, LMP: Men o 2010 [id number] Dates / Results....10/27/21 NIL, Neg HPV Other..............Post Menopausal No. of containers..01 ThinPrep Vial SURGICAL PATHOLOGY Reviewed date:08/26/2024 12:24:34 PM Interpretation: Performing Lab:Testing performed or reported by [facility], a Service of [facility], [address] [place] [address] Richardson Nielsen MD, Petrol Tanker Driver [facility]# [id number] Notes/Report: Patient Name: WEI BIANCHI Lab Patient [...] specimen processing and staining is performed at [facility], [address] [place] [address] (CLIA#[id number]). Its performance characteristics determined by [facility]. Hamilton Burger M.D. Petrol Tanker Driver of Surgical Pathology, Erna Hager M.D. Petrol Tanker Driver Cytopathology Phone #: [phone], On-Call Pathologist: [id number] Reason For Referral No Information Medications Medication [...] Status W/U Status Risk Notes Problem Menopause (873638702) Menopausal and female climacteric states (N95.1) Active confirmed Problem Postmenopausal atrophic vaginitis (35228314) Postmenopausal atrophic vaginitis (N95.2) Active confirmed Problem Dysplasia of cervix (79911782) Dysplasia of cervix, unspecified (622.10) Active confirmed Diag Problem Menopausal symptom (39521890) Symptomatic menopausal or female climacteric states (627.2) Active confirmed Diag Problem Gynecological examination normal (311939310671031) Routine gynecological examination (V72.31) Active confirmed Major Vital Signs Temperature 97.7 degrees Fahrenheit 08/24/2024 Blood pressure diastolic 80 mm Hg 08/24/2024 Height 63 in 08/24/2024 Blood pressure systolic 124 mm Hg 08/24/2024 Weight 137 lbs 08/24/2024 BMI 24.27 kg/m2 08/24/2024 Encounters Encounter Location Date Provider Diagnosis [facility] [employer] [facility] [employer] [address] [place] [address] 04/30/2024 Fern Chin Encounter for gynecological examination (general) (routine) without abnormal findings Z01.419 ; Encounter for screening mammogram for malignant neoplasm of breast Z12.31 ; Other specified disorders of bone density and structure, multiple sites M85.89 and Postmenopausal atrophic vaginitis N95.2 [employer] [facility] [employer] [address] [place] [address] 08/24/2024 Fern Chin Low grade squamous intraepithelial lesion on cytologic smear of cervix (LGSIL) R87.612 [facility] [address] [place] [address] 07/27/2024 Fern Chin [facility] [address] [place] [address] 08/30/2024 Fern Chin Assessments Encounter Date Diagnosis [...] 11/20/2022 Next Appt Details Provider Name:Fern Gibson anne-amrieceleste, 05/05/2025 10:00:00 AM, [address], [place], [address], Insurance Providers Payer Name Payer Address Payer Phone Subscriber Number Group Number Insured Name Patient Relationship to Insured Coverage Start Date Coverage End Date [employer] [place] [address] [place] [address] [phone] [id number] WEI BIANCHI Self - patient is the [...]
== END 2024-10-14 07:16 | disposition home or self-care (01) ==
LOC: HO.CT 07:15
PROVIDERS: PCP Nurse Practitioner Family; Visit Provider Physician Assistant Medical
DX: Z12.2 Encounter for screening for malignant neoplasm of respiratory organs (principal); Z87.891 Personal history of nicotine dependence
CPT/HCPCS: 71271

== ENCOUNTER → 2024-10-14 07:17 | Outpatient (BNV) | payer BC, SELFPAY | PROVIDERS: PCP Nurse Practitioner Family; Visit Provider Radiology Diagnostic Radiology | DX: Z12.2 Encounter for screening for malignant neoplasm of respiratory organs (principal); Z87.891 Personal history of nicotine dependence | CPT/HCPCS: 71271 ==

== ENCOUNTER 2024-11-03 10:26 | Outpatient (AMB) | payer BC, SELFPAY ==
--- NOTE | 2024-11-03 10:37 | MHC.PC.OV ---
Vital Signs 11/03/24 10:39 Height 5 ft 3 in Weight 139 lb 4 oz BMI 24.7 BP 108/70 Blood Pressure Location Rt brachial Position Sitting Respiration 12 Pulse 80 Pulse Source Pulse Oximeter Temp 98 F Temp Source Oral Pulse Oximetry (%) 94 Oxygen Delivery Method Room Air Intake Visit Reasons: 6-8 weeks fu on cymbalta start Intake Note: Medication follow up Vessel Master Required: No Allergies No Known Allergies Allergy (Verified 11/03/24 10:50) Medication List - Last Reconciled 11/03/24 by Jacqueline Colorado, SAFETY COORDINATOR- albuterol sulfate 90 mcg/actuation (Ventolin HFA) 2 puffs inhalation Q4-6H PRN atorvastatin 40 mg PO BEDTIME duloxetine (Cymbalta) 20 mg PO BID hydroxyzine HCl 25 mg PO BID PRN meloxicam 15 mg PO DAILY 90 days Tobacco use date assessed: 11/03/24 Dental Screening Dental Screen Date: 09/14/24 HPI HPI Comments History of Present Illness Details 58-year-old female with fatty liver disease, former smoker, hyperlipidemia, COPD, osteoarthritis, CAD, osteopenia, emphysema, hearing loss, MDD, seasonal affective disorder, AK Status post breast implants, tubal ligation Social: working at [employer] 4 days/week, will be looking for new job. Health maintenance [facility] smear [facility] Mammogram 05/2024 normal Colonoscopy 2024, [facility] repeat in 5 years DEXA 06/2023 Osteopenia based on the lowest T-score value of -1.9 in the femoral neck applying World Health Organization criteria. 2. 10-YEAR FRACTURE RISK PREDICTION, FRAX: Major osteoporotic fracture (clinical spine, forearm, hip or shoulder) 14.7%. Hip fracture 1.8%. (repeat 2028) Tdap 2023 Flu UTD 07/2024 hearing test + hearing loss, needs hearing aides Specialists Cardiology - had echo done. Was ordered stress test, did not make it before insurance referral . Does not feel like needs this @ this time. GI Cards Pulm Chiro felt worse after treatments in December. Derm - appt in [place] October 28, 2024 rash on upper lip and scabs back of scalp - Actinic keratosis removed. History of Present Illness - The patient is a 58-year-old female presenting to fu on chronic pain and depression. - Started duloxetine 20 mg BID, noticed reduced pain and increased energy. - Denies adverse effects; adherent to twice-daily regimen. - Challenges in continuing therapy due to insurance and logistical constraints. - Shifted to part-time work affecting insurance coverage. 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 Can pursue again PRN - Dermatological visit identified actinic keratosis; present on ear, R - Colonoscopy identified a benign polyp; surveillance advised. - Maintains medication compliance with hydroxyzine, meloxicam, atorvastatin. Review of Systems - Neurological: Reports increased energy levels. - Musculoskeletal: Reports pain reduction since starting duloxetine. - Dermatological: Reports actinic keratosis diagnosis on the ear. - Gastrointestinal: Reports normal colonoscopy with one benign polyp. Physical Exam General: Well developed, well nourished, in no acute distress. Appears stated age. Head: Normocephalic, atraumatic. Eyes: Pupils are equal, round and reactive to light and accommodation. Conjunctivae are clear. . Lungs: Clear to auscultation bilaterally. Heart: Regular rate and rhythm. No murmurs, click, rubs or gallops are noted. Extremities: No clubbing, cyanosis nor edema is noted. Psych: Mood and affect appropriate Discussion Notes During the consultation, we discussed the patient's ongoing management of chronic pain and depression with duloxetine, which she reports has been beneficial in reducing pain and increasing her energy levels. We examined the feasibility of continuing counseling given the complications with her current insurance and work status. The patient acknowledged the beneficial changes from the medication, affirming that the 20 mg twice daily dosage suits her needs without side effects. We addressed the outcome of her recent dermatology assessment, which identified actinic keratosis on her R ear and lip. The completed colonoscopy indicated a non-cancerous polyp, with subsequent advice for another procedure in five years. I confirmed a 90-day prescription of duloxetine to mitigate potential insurance lapses and will continue to monitor her medication needs closely. Assessment and Plan 1. Chronic Pain - Maintain duloxetine 20 mg BID. - 90-day supply prescribed. 2. Major Depressive Disorder - Continue duloxetine treatment. - Monitor mood and energy. 3. Actinic Keratosis - Current status checked. - No additional treatment at present. 4. Hyperlipidemia - Atorvastatin continued. - Stability affirmed. 5. Prior Polyp - Surveillance strategy established. - Repeat colonoscopy in five years. Patient Instructions - Continue taking duloxetine as prescribed. - Monitor for any new symptoms or side effects. - Adhere to current medication regimen. - Contact if experiencing any new or worsening symptoms. - Follow up with dermatology if necessary. - Schedule colonoscopy in five years. RTO as scheduled in Feb for CPE, sooner PRN Consent Patient was informed and verbally consented to the use of an ambient scribe for clinic note documentation during this visit. Total time spent caring for the patient today was 30 minutes. This includes time spent before the visit reviewing the chart, time spent during the visit, and time spent after the visit on documentation, reviewing laboratory results, diagnostic imaging, medications, performing a medically necessary evaluation, counseling on diagnoses, care coordination, ordering appropriate tests, ordering appropriate medications, review of tests performed by other providers, reporting test results with the patient, communication with other healthcare providers. [facility] Medical History (Updated 11/03/24 @ 11:02 by Jacqueline Colorado [facility]) Fatty liver Hyperlipidemia Personal history of nicotine dependence Surgical History History of surgery H/O shoulder surgery History of tubal ligation History of breast implant Family History Father Congestive heart failure (CHF) Pacemaker Other Mental health disorder Substance use disorder Social History (Updated 11/03/24 @ 10:42 by Radha Severino CMA) Housing: House Alcohol intake: current Alcohol intake frequency: a few times a week Patient Tobacco Use Status: Former Tobacco user e-Cigarette/Vaping Use: Never Used Second Hand Smoke Exposure: No Use of substances other than those prescribed or required for medical reasons: No service: No Current occupational status: employed Cognitive needs: No Hearing needs: No Vision needs: No Questionnaire PHQ-9 Over the last 2 weeks, how often have you been bothered by any of the following problems? 1. Little interest or pleasure in doing things: not at all 2. Feeling down, depressed, or hopeless: not at all 3. Trouble falling or staying asleep, or sleeping too much: not at all 4. Feeling tired or having little energy: not at all 5. Poor appetite or overeating: not at all 6. Feeling bad about yourself - or that you are a failure or have let yourself or your family down: not at all 7. Trouble concentrating on things, such as reading the newspaper or watching television: not at all 8. Moving or speaking so slowly that other people could have noticed. Or the opposite - being so fidgety or restless that you have been moving around a lot more than usual: not at all 9. Thoughts that you would be better off or of hurting yourself in some way: not at all Total score: 0 Depression Screening Interpretation: Negative Depression Screening Done: Yes 25163 - PHQ-9 Billing: Yes Source: Developed by Drs. Teodoro Hsieh, Daisha Valenzuela, Roberto Corona and colleagues, with an educational rebecca from [employer]. Thrive Questionnaire Date Thrive assessed: 09/12/24 I am a: Patient What is your living situation today?: I have a steady place to live Within the past 12 months, did the food you bought not last and you didn't have the money to get more?: Never true Within the past 12 months, did you worry whether your food would run out before you got money to buy more?: Never true Do you have trouble paying for medicines?: No Do you have trouble getting transportation to medical appointments?: No Do you have trouble paying your heating and electricity bill?: No Do you have trouble taking care of your child, family member or friend?: No Do you have trouble with day-to-day activities such as bathing, preparing meals, shopping, managing finances, etc.?: No Are you currently unemployed and looking for a job?: No Are you interested in more education?: No Please select the resources that you would like help with: None Currently or been in a relationship where the following occur: No concerns reported THRIVE Score: 0 AUDIT C Alcohol Use Questionnaire (AUDIT-C) 1. How often do you have a drink containing alcohol?: 2-3 times a week 2. How many drinks containing alcohol do you have on a typical day when you are drinking?: 3 or 4 3. How often do you have six or more drinks on one occasion?: Monthly Total Score: 6 Score Reviewed/Action Taken: Yes MAYR-7 AMB Questionnaire MARY-7 Date MARY - 7 assessed: 09/14/24 Source: Developed by Drs. Teodoro Hsieh, Daisha Valenzuela, Roberto Corona and colleagues, with an educational rebecca from [employer]. Physical exam (Primary Care) Vital Signs: Last Vital Signs Temp 98 F 11/03/24 10:39 Pulse 80 11/03/24 10:39 Resp 12 11/03/24 10:39 BP 108/70 11/03/24 10:39 Pulse Ox 94 11/03/24 10:39 Oxygen Delivery Method Room Air 11/03/24 10:39 BMI result Body Mass Index 24.7 Tobacco/Smoking Status: Tobacco use Status Tobacco use date assessed 11/03/24 11/03/24 10:42 Patient Tobacco Use Status Former Tobacco user 11/03/24 10:42 e-Cigarette/Vaping Use Never Used 11/03/24 10:42 PHQ-9: PHQ-9 Score PHQ-9: Total score 0 11/03/24 10:42 Depression Screening Interpretation: Negative Thrive Assessment: Date of Thrive Assessment Date Thrive assessed 09/12/24 11/03/24 10:42 Currently or been in a relationship where the following occur: No concerns reported Coding Level of Care Code Est Pt Level 4 (35428) Complex EM visit Add On G2211 Diagnoses MARY (generalized anxiety disorder) F41.1 Moderate episode of recurrent major depressive disorder F33.1 Major depression episode severity: moderate Chronic midline low back pain without sciatica M54.50; G89.29 Back pain location: low back pain Back pain laterality: midline Sciatica presence: without sciatica AK (actinic keratosis) L57.0 Mixed hyperlipidemia E78.2 Hyperlipidemia type: mixed hyperlipidemia Actinic keratoses L57.0 History of colonoscopy Z98.890 Additional Codes PHQ-9 - 87976 - PHQ-9 Billing: Yes ([id number]) Assessment & Plan Assessment & Plan (1) MAYR (generalized anxiety disorder): Comment: prn hydroxyzine 25 mg po BID PRN Code(s): F41.1 - Generalized anxiety disorder Category: Medical (2) MDD (major depressive disorder), recurrent episode: Code(s): F33.9 - Major depressive disorder, recurrent, unspecified Category: Medical Qualifiers: Major depression episode severity: moderate Qualified Code(s): F33.1 - Major depressive disorder, recurrent, moderate (3) Chronic back pain: Code(s): M54.9 - Dorsalgia, unspecified; G89.29 - Other chronic pain Category: Medical Qualifiers: Back pain location: low back pain Back pain laterality: midline Sciatica presence: without sciatica Qualified Code(s): M54.50 - Low back pain, unspecified; G89.29 - Other chronic pain (4) AK (actinic keratosis): Code(s): L57.0 - Actinic keratosis Category: Medical (5) Hyperlipidemia: Comment: atorvastatin 40mg QD. Recheck lipids in 6 mo,titrate to LDL <70 Cardiology referral active, for further workup of hyperlipidemia and CAD per her request Code(s): E78.5 - Hyperlipidemia, unspecified Category: Medical Qualifiers: Hyperlipidemia type: mixed hyperlipidemia Qualified Code(s): E78.2 - Mixed hyperlipidemia (6) Actinic keratoses: Comment: DERM IN CT 10/2024 Code(s): L57.0 - Actinic keratosis Category: Medical (7) History of colonoscopy: Onset Date: ~09/2024 Comment: + POLYP, REPEAT 5 YEARS [facility] Code(s): Z98.890 - Other specified postprocedural states Category: Surgical Plan . Medications: Changed From duloxetine (Cymbalta) take 1 capsule at bedtime x 2 weeks than increase to twice per day 20 mg PO BID 60 caps 1RF To duloxetine (Cymbalta) 20 mg PO BID 180 caps 1RF
[2024-11-03 10:39] VITALS: BP 108/70; PULSE 80; RESP 12; TEMP 36.6; O2SAT 94; BMI 24.7
--- OUTSIDE RECORDS SUMMARY | 2024-11-03 11:19 | XMS_ITS | Patient Health Record ---
Author Organization [facility] Address [address] [place] [address] [address] [place] [address] Care Team Providers Care Medical Claims Analyst Name Role Phone O CHRISTIANO CELAYA Primary Care Provider Fern Torres Unavailable [phone] Allergies No Known Allergies Results Component Value Reference Range Notes [id number] IGP No Culture 30 Plus Reviewed date:05/08/2024 11:45:15 AM Interpretation: Performing Lab:[facility], [address] [place] [address], Phone - [phone], Director - [facility] Notes/Report: Clinical Information:Vaginal/Cervical, LMP: Men o 2010 [id number] Dates / Results....10/27/21 NIL, Neg HPV Other..............Post Menopausal No. of containers..01 ThinPrep Vial DIAGNOSIS: EPITHELIAL CELL ABNORMALITY. LOW GRADE SQUAMOUS INTRAEPITHELIAL LESION (LSIL). Specimen adequacy: Satisfactory for evaluation. Endocervical and/or squamous metaplastic cells (endocervical component) are present. Clinician provided ICD10: Z0 1.419 Performed by: Jaz amin, Screening Unit Registered Nurse (ASCP) Electronically signed by: Martha Childs MD, [...] 5.0 PROTEIN Neg GLUCOSE Neg BLOOD Neg PDF Report Reviewed date:05/08/2024 11:44:10 AM Interpretation: Performing Lab:[facility], [address] [place] [address], Phone - [phone], Director - [facility] Notes/Report: Clinical Information:Vaginal/Cervical, LMP: Men o 2010 [id number] Dates / Results....10/27/21 NIL, Neg HPV Other..............Post Menopausal No. of containers..01 ThinPrep Vial SURGICAL PATHOLOGY Reviewed date:08/26/2024 12:24:34 PM Interpretation: Performing Lab:Testing performed or reported by [facility], a Service of [facility], [address] [place] [address] Richardson Nielsen MD, Potato Chip Fryer [facility]# [id number] Notes/Report: Patient Name: WEI BIANCHI Lab Patient [...] specimen processing and staining is performed at [facility], [address] [place] [address] (CLIA#[id number]). Its performance characteristics determined by [facility]. Hamilton Burger M.D. Potato Chip Fryer of Surgical Pathology, Erna Hager M.D. Pot[employer] Chip Fryer Cytopathology Phone #: [phone], On-Call Pathologist: [id number] Reason For Referral No Information Medications Medication SIG (Take, Route, Frequency, Duration) Notes Start Date End Date Status Meloxicam 15 MG 1 tablet Orally Once a day; Duration: 30 day(s) Active Estradiol Vaginal Cream 0.01% 1 Gram to the affected area Vaginal/Vulva Twice a week; Duration: 90 Days 11/20/2022 Active Ashwagandha Active Estradiol Vaginal Cream 0.01% 1 Gram to the affected area Vaginal/Vulva Twice a week; Duration: 90 Days 04/30/2024 Active hydrOXYzine HCl 25 MG Oral; Duration: 30 Days Active Atorvastatin Calcium 40 MG Oral; Duration: 90 Days Active Social History Tobacco Use: [...] Status W/U Status Risk Notes Problem Menopause (721484100) Menopausal and female climacteric states (N95.1) Active confirmed Problem Postmenopausal atrophic vaginitis (N95.2) Active confirmed Problem Dysplasia of cervix (45156766) Dysplasia of cervix, unspecified (622.10) Active confirmed Diag Problem Menopausal symptom (97847585) Symptomatic menopausal or female climacteric states (627.2) Active confirmed Diag Problem Gynecological examination normal (458756169709705) Routine gynecological examination (V72.31) Active confirmed Major Vital Signs Temperature 97.7 degrees Fahrenheit 08/24/2024 Blood pressure diastolic 80 mm Hg 08/24/2024 Height 63 in 08/24/2024 Blood pressure systolic 124 mm Hg 08/24/2024 Weight 137 lbs 08/24/2024 BMI 24.27 kg/m2 08/24/2024 Encounters Encounter Location Date Provider Diagnosis [facility] [address] [place] [address] 04/30/2024 Fern Chin Encounter for gynecological examination (general) (routine) without abnormal findings Z01.419 ; Encounter for screening mammogram for malignant neoplasm of breast Z12.31 ; Other specified disorders of bone density and structure, multiple sites M85.89 and Postmenopausal atrophic vaginitis N95.2 [facility] [address] [place] [address] 08/24/2024 Fern Chin Low grade squamous intraepithelial lesion on cytologic smear of cervix (LGSIL) R87.612 [facility] [address] [place] [address] 07/27/2024 Fern Chin [facility] [address] [place] [address] 08/30/2024 Fern Chin Assessments Encounter Date Diagnosis [...] Name:Fern Gibson anne-marieceleste, 05/05/2025 10:00:00 AM, [address], [place], [address], Insurance Providers Payer Name Payer Address Payer Phone Subscriber Number Group Number Insured Name Patient Relationship to Insured Coverage Start Date Coverage End Date [employer] [place] [address] [place] [address] [id number] WEI BIANCHI Self - patient is the [...]
== END 2024-11-03 13:52 | disposition home or self-care (01) ==
LOC: HO.HMCFM 10:27
PROVIDERS: PCP Nurse Practitioner Family; Visit Provider Nurse Practitioner Family
DX: F41.1 Generalized anxiety disorder (principal); F33.1 Major depressive disorder, recurrent, moderate; M54.50 Low back pain, unspecified; G89.29 Other chronic pain; L57.0 Actinic keratosis; E78.2 Mixed hyperlipidemia; Z98.890 Other specified postprocedural states; Z23 Encounter for immunization

== ENCOUNTER → 2024-11-03 10:26 | Outpatient (BNVA) | payer BC, SELFPAY | PROVIDERS: PCP Nurse Practitioner Family; Visit Provider Nurse Practitioner Family | DX: I25.10 Atherosclerotic heart disease of native coronary artery without angina pectoris (principal); J43.9 Emphysema, unspecified; E78.5 Hyperlipidemia, unspecified; F41.1 Generalized anxiety disorder; F33.1 Major depressive disorder, recurrent, moderate; M54.50 Low back pain, unspecified; G89.29 Other chronic pain; E78.2 Mixed hyperlipidemia; Z23 Encounter for immunization; Z98.890 Other specified postprocedural states | CPT/HCPCS: 90471; 90715; 96127 ==

== ENCOUNTER → 2024-12-24 10:38 | Outpatient (BNVA) | payer SELFPAY | PROVIDERS: PCP Nurse Practitioner Family; Visit Provider Internal Medicine | DX: Z02.79 Encounter for issue of other medical certificate (principal) ==

== ENCOUNTER 2025-01-19 10:10 | Outpatient (REF) | payer OTHER, SELFPAY ==
--- OUTSIDE RECORDS SUMMARY | 2023-11-26 06:00 | XMS_ITS ---
Author Organization 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 :1965 A ge:57 Y S ex:Female Date:11/26/2023 Address:[address] [place], [place] [id number] Pcp:ARELI CASTILLO Subjective: * Chief Complaints: * 1 . 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 * Medical History: Objective: * Vitals: Assessment: Plan: * Treatment: * Images: Billing Information: * Visit Code: * Procedure Codes: * Electronic signature of Fabiana Chin MD on 01/19/2025 at 12:26 PM EDT Sign off status: Pending * Appointment Provider: Lina Chin M.D. Date: 0 11/26/2023 Generated for Desiree pierce/Carter/Lindsay on: 0 01/19/2025 12:26 PM EDT
--- NOTE | 2025-01-19 11:41 | MHC.AU.HA2 ---
Hearing Instrument Fitting- Adult- Binaural Date of Visit: 01/19/25 Hearing Instruments Dispensed: Right Ear: Tacho, Model, Color, Serial Number: Israel Steinberg [id number]-[id number] SN: [id number] Color: Rupali Beige Partridge Farmer Repair Warranty: 01/22/2028 Partridge Farmer Loss and Damage Warranty: 01/22/2028 [facility] Service Plan: 01/19/2026 Battery Size: Rechargeable Pigs Feet Finisher/Slim Tube: 1M Earmold/Dome/CShell/SlimTip: Medium closed dome (no retention tail) Type of Wax Guard: CeruStop Left Ear: Make, Model, Color, Serial Number: Israel Husseino [id number]-[id number] SN: [id number] Color: Rupali Bealexis Partridge Farmer Repair Warranty: 01/22/2028 Partridge Farmer Loss and Damage Warranty: 01/22/2028 [facility] Service Plan: 01/19/2026 Battery Size: Rechargeable Pigs Feet Finisher/Slim Tube: 1M Earmold/Dome/CShell/SlimTip: Medium closed dome (no retention tail) Type of Wax Guard: CeruStop Accessories/Assistive Technology: Phonak Sludge Mill Operator NELDA SN: [id number] Summary of Fitting: Ran feedback analyzer and real ear measures. Decreased to 80% gain level due to loudness. Discussed care, use, and rechargeability including manually turning on/off, VC use, and changing domes and wax guards. Practiced insertion and removal. Explained importance of daily consistent use and acclimatization period. Did not discussed bluetooth yet. Recommendations: A hearing instrument follow-up was scheduled. Diagnosis Code(s): Primary Diagnosis: H90.3 Bilateral Sensorineural Hearing Loss Signature: Provider: Tiana Ray, CCC-A
--- OUTSIDE RECORDS SUMMARY | 2025-01-19 12:26 | XMS_ITS | Patient Health Record ---
Author Organization [facility] [employer] Address [address] [place] [address] [address] [place] [address] Care Team Providers Care Signals Intelligence Superintendent Name Role Phone O CHRISTIANO CELAYA Primary Care Provider Fern Torres Unavailable [phone] Allergies No Known Allergies Results Component Value Reference Range Notes [id number] [id number] No Culture 30 Plus Reviewed date:05/08/2024 11:45:15 AM Interpretation: Performing Lab:[facility], [address] [place] [address], Phone - [phone], Director - [facility] Notes/Report: Clinical Information:Vaginal/Cervical, LMP: Men o 2010 [id number] Dates / Results....10/27/21 NIL, Neg HPV Other..............Post Menopausal No. of containers..01 ThinPrep Vial DIAGNOSIS: EPITHELIAL CELL ABNORMALITY. LOW GRADE SQUAMOUS INTRAEPITHELIAL LESION (LSIL). Specimen adequacy: Satisfactory for evaluation. Endocervical and/or squamous metaplastic cells (endocervical component) are present. Clinician provided ICD10: Z0 1.419 Performed by: Jaz amin, Cnc Maintenance Mechanic (ASCP) Electronically signed by: Martha Childs MD, [...] Interpretation: Performing Lab:Testing performed or reported by [facility], a Service of [facility], [address] [place] [address] Richardson Nielsen MD, Ldr Nurse [facility]# [id number] Notes/Report: Patient Name: WEI BIANCHI Lab Patient [...] specimen processing and staining is performed at [facility], [address] [place] [address] (CLIA#[id number]). Its performance characteristics determined by [facility]. Hamilton Burger M.D. Ldr Nurse of Surgical Pathology, Erna Hager M.D. Ldr Nurse Cytopathology Phone #: [phone], On-Call Pathologist: [id number] PDF Report Reviewed date:05/08/2024 11:44:10 AM Interpretation: Performing Lab:[facility], [address] [place] [address], Phone - [phone], Director - [facility] Notes/Report: Clinical Information:Vaginal/Cervical, LMP: Men o 2010 [id number] Dates / Results....10/27/21 NIL, Neg HPV Other..............Post [...] Status W/U Status Risk Notes Problem Menopause (809300167) Menopausal and female climacteric states (N95.1) Active confirmed Problem Postmenopausal atrophic vaginitis (64683273) Postmenopausal atrophic vaginitis (N95.2) Active confirmed Problem Dysplasia of cervix (47282121) Dysplasia of cervix, unspecified (622.10) Active confirmed Diag Problem Menopausal symptom (00334807) Symptomatic menopausal or female climacteric states (627.2) Active confirmed Diag Problem Gynecological examination normal (295549318083948) Routine gynecological examination (V72.31) Active confirmed Major Vital Signs Temperature 97.7 degrees Fahrenheit 08/24/2024 Blood pressure diastolic 80 mm Hg 08/24/2024 Height 63 in 08/24/2024 Blood pressure systolic 124 mm Hg 08/24/2024 Weight 137 lbs 08/24/2024 BMI 24.27 kg/m2 08/24/2024 Encounters Encounter Location Date Provider Diagnosis [facility] [employer] [facility] [place] [address] [place] [address] 04/30/2024 Fern Chin Encounter for gynecological examination (general) (routine) without abnormal findings Z01.419 ; Encounter for screening mammogram for malignant neoplasm of breast Z12.31 ; Other specified disorders of bone density and structure, multiple sites M85.89 and Postmenopausal atrophic vaginitis N95.2 [facility] [employer] [facility] [place] [address] [facility] [address] [place] [address] 08/24/2024 Fern Chin Low grade squamous intraepithelial lesion on cytologic smear of cervix (LGSIL) R87.612 [facility] [address] [place] [address] 07/27/2024 Fern Chin [facility] [address] [place] [address] 08/30/2024 Fern Chin Assessments Encounter Date Diagnosis [...] Provider Name:Fern walls, 05/05/2025 10:00:00 AM, [address], [place], [address], Insurance Providers Payer Name Payer Address Payer Phone Subscriber Number Group Number Insured Name Patient Relationship to Insured Coverage Start Date Coverage End Date [employer] [place] [address] [place] [address] [id number] WEI BIANCHI Self - patient is the [...]
== END 2025-01-19 10:11 | disposition home or self-care (01) ==
LOC: HO.HAP 10:10
PROVIDERS: PCP Family Medicine; Visit Provider Nurse Practitioner Family
DX: Z46.1 Encounter for fitting and adjustment of hearing aid (principal); H90.3 Sensorineural hearing loss, bilateral
CPT/HCPCS: V5011; V5020; V5160; V5261

== ENCOUNTER 2025-03-15 13:40 | Outpatient (REF) | payer OTHER, SELFPAY | END 2025-03-15 13:41 | disposition home or self-care (01) | LOC: HO.HAP 13:40 | PROVIDERS: Visit Provider Family Medicine | DX: Z13.89 Encounter for screening for other disorder (principal) ==

== ENCOUNTER 2025-03-17 07:08 | Outpatient (REF) | payer OTHER, SELFPAY ==
--- OUTSIDE RECORDS SUMMARY | 2023-11-26 05:00 | XMS_ITS ---
Author Organization 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 [address] [address] 11/26/2023 Fern Chin Plan Of Treatment Next Appt Details Provider Name:Fern Flavia Arthur walls, 05/05/2025 10:00:00 AM, [address] [place] [address], [address], [place], [address], Progress Notes * ADDY BIANCHIOB: 6 (59 yo F)Acc No.[id number]:11/26/2023 PROGRESS NOTES Patient: Isaias WEI TERESA Appointment Provider: Lina Chin M.D. :1965 A ge:57 Y S ex:Female Date:11/26/2023 Address:[address] [place], [place] [id number] Pcp:ARELI CASTILLO Subjective: * Chief Complaints: * 1 . 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 * Medical History: Objective: * Vitals: Assessment: Plan: * Treatment: * Images: Billing Information: * Visit Code: * Procedure Codes: * Electronic signature of Fabiana Chin MD on 03/17/2025 at 07:19 AM EST Sign off status: Pending * Appointment Provider: Lina Chin M.D. Date: 0 11/26/2023 Generated for Desiree pierce/Carter/Lindsay on: 1 05/17/2024 07:19 AM EST
--- OUTSIDE RECORDS SUMMARY | 2025-03-17 07:19 | XMS_ITS | Patient Health Record ---
[facility] Organization [facility] Address [address] [place] [address] [address] [place] [address] Care Team Providers Care Copyman Name Role Phone O CHRISTIANO CELAYA Primary Care Provider Fern Torres Unavailable [phone] Allergies No Known Allergies Results Component Value Reference Range Notes PDF Report Reviewed date:05/08/2024 11:44:10 AM Interpretation: Performing Lab:[facility], [address] [place] [address], Phone - [phone], Director - [facility] Notes/Report: Clinical Information:Vaginal/Cervical, LMP: Men o 2010 [id number] Dates / Results....10/27/21 NIL, Neg HPV Other..............Post Menopausal No. of containers..01 ThinPrep Vial SURGICAL PATHOLOGY Reviewed date:08/26/2024 12:24:34 PM Interpretation: Performing Lab:Testing performed or reported by [facility], a Service of [facility], [address] [place] [id number] Richardson Nielsen MD, Permastone Installer [facility]# [id number] Notes/Report: Patient Name: WEI BIANCHI Lab Patient [...] specimen processing and staining is performed at [facility], [address] [place] [address] (CLIA#[id number]). Its performance characteristics determined by Fanzter. Hamilton Burger M.D. Permastone Installer of Surgical Pathology, Erna Hager M.D. Permastone Installer Cytopathology Phone #: [phone], On-Call Pathologist: [phone] IGP No Culture 30 Plus Reviewed date:05/08/2024 11:45:15 AM Interpretation: Performing Lab:[facility], [address] [place] [address], Phone - [phone], Director - [facility] Notes/Report: Clinical Information:Vaginal/Cervical, LMP: Men o 2011 [id number] Dates / Results....10/27/21 NIL, Neg HPV Other..............Post Menopausal No. of containers..01 ThinPrep Vial DIAGNOSIS: EPITHELIAL CELL ABNORMALITY. LOW GRADE SQUAMOUS INTRAEPITHELIAL LESION (LSIL). Specimen adequacy: Satisfactory for evaluation. Endocervical and/or squamous metaplastic cells (endocervical component) are present. Clinician provided ICD10: Z0 1.419 Performed by: Jaz amin, Remediation Project Engineer (ASCP) Electronically signed by: Martha Childs MD, [...] Status W/U Status Risk Notes Problem Menopause (122335394) Menopausal and female climacteric states (N95.1) Active confirmed Problem Postmenopausal atrophic vaginitis (40662060) Postmenopausal atrophic vaginitis (N95.2) Active confirmed Problem Dysplasia of cervix (76133458) Dysplasia of cervix, unspecified (622.10) Active confirmed Diag Problem Menopausal symptom (95144385) Symptomatic menopausal or female climacteric states (627.2) Active confirmed Diag Problem Gynecological examination normal (040484419305977) Routine gynecological examination (V72.31) Active confirmed Major Vital Signs Temperature 97.7 degrees Fahrenheit 08/24/2024 Blood pressure diastolic 80 mm Hg 08/24/2024 Height 63 in 08/24/2024 Blood pressure systolic 124 mm Hg 08/24/2024 Weight 137 lbs 08/24/2024 BMI 24.27 kg/m2 08/24/2024 Encounters Encounter Location Date Provider Diagnosis [facility] [place] [address] [place] [address] 04/30/2024 Fern Chin Encounter for gynecological examination (general) (routine) without abnormal findings Z01.419 ; Encounter for screening mammogram for malignant neoplasm of breast Z12.31 ; Other specified disorders of bone density and structure, multiple sites M85.89 and Postmenopausal atrophic vaginitis N95.2 [facility] [place] [address] [facility] [address] [place] [address] 08/24/2024 Fern Chin Low grade squamous intraepithelial lesion on cytologic smear of cervix (LGSIL) R87.612 [facility] [address] [place] [address] 07/27/2024 Fern Chni [facility] [place] [facility] [address] [place] [address] 08/30/2024 Fern Chin Assessments Encounter Date Diagnosis [...] Provider Name:Fern walls, 05/05/2025 10:00:00 AM, [address], [place], [address], Insurance Providers Payer Name Payer Address Payer Phone Subscriber Number Group Number Insured Name Patient Relationship to Insured Coverage Start Date Coverage End Date [employer] [place] [address] [place] [address] [id number] WEI BIANCHI Self - patient is the [...]
[2025-03-17 07:48] LABS: Hematocrit 40.2 % (37.0-47.0); Hemoglobin 13.4 g/dl (12.0-16.0); Mean Corpuscular HGB Conc 33.3 g/dl (31.0-35.0); Mean Corpuscular Hemoglobin 30.1 pg (27.0-33.0); Mean Corpuscular Volume 90.3 fL (80.0-98.0); NRBC Abs Auto 0.000 X10*3/uL (0.0-0.012); NRBC Pct Auto 0.0 /100WBC (0.0-0.2); Platelet Count 233 X10*3/uL (160-400); Red Blood Count 4.45 X10*6/uL (4.20-5.50); White Blood Count 6.1 X10*3/uL (4.8-10.8)
[2025-03-17 08:22] LABS: Alanine Aminotransferase 22 U/L (0-31); Albumin Level 4.5 g/dL (3.5-5.0); Alkaline Phosphatase 60 U/L (39-117); Anion Gap 12 (12-20); Aspartate Amino Transferase 31 U/L (5-31); Blood Urea Nitrogen 18 mg/dL (9-16); Calcium 8.9 mg/dL (8.4-10.2); Carbon Dioxide 27 mmol/L (22-29); Chloride 105 mmol/L (96-108); Cholesterol 229 mg/dL (<200); Estimated Glomerular Filt Rate > 60; HDL Cholesterol 87 mg/dL (>40); Potassium 3.6 mmol/L (3.3-5.1); Sodium 140 mmol/L (135-145); Total Protein 6.9 g/dL (6.5-8.0); Triglycerides 93 mg/dL (<150)
[2025-03-17 08:26] LABS: Appearance Urine Cloudy; Glucose Urine UA Negative (Negative); PH 5.5 (5.0-9.0); Specific Gravity - Urine 1.025 (1.005-1.025)
[2025-03-17 08:43] LABS: Folate 8.2 ng/mL (> or = 4.0); Vitamin B12 519 pg/mL (200-900)
[2025-03-17 09:14] LABS: Microalbum/Creatinine Ratio Ur 6.2 ug/mg cr (<30)
== END 2025-03-17 07:09 | disposition home or self-care (01) ==
LOC: HO.LAB 07:08
PROVIDERS: PCP Nurse Practitioner Family; Visit Provider Nurse Practitioner Family
DX: Z00.00 Encounter for general adult medical examination without abnormal findings (principal); I25.10 Atherosclerotic heart disease of native coronary artery without angina pectoris; M85.80 Other specified disorders of bone density and structure, unspecified site; J44.9 Chronic obstructive pulmonary disease, unspecified; Z87.891 Personal history of nicotine dependence
CPT/HCPCS: 36415; 80053; 80061; 81003; 82043; 82306; 82570; 82607; 82746; 83036; 84443; 85027

== ENCOUNTER 2025-03-21 12:01 | Outpatient (AMB) | payer OTHER, SELFPAY ==
--- NOTE | 2025-03-21 12:05 | MHC.PC.OV ---
Vital Signs 03/21/25 12:08 Height 5 ft 3 in Weight 138 lb 2 oz BMI 24.5 BP 128/82 Blood Pressure Location Rt brachial Position Sitting Respiration 14 Pulse 77 Pulse Source Pulse Oximeter Temp 99.2 F Temp Source Oral Pulse Oximetry (%) 95 Oxygen Delivery Method Room Air Intake Visit Reasons: CPE Intake Note: Physical Allergies No Known Allergies Allergy (Verified 03/21/25 12:21) Medication List - Last Reconciled 03/21/25 by Jacqueline [place] NEGATIVE CLEANER- albuterol sulfate 90 mcg/actuation (Ventolin HFA) 2 puffs inhalation Q4-6H PRN atorvastatin 40 mg PO BEDTIME duloxetine (Cymbalta) 20 mg PO BID hydroxyzine HCl 25 mg PO BID PRN meloxicam 15 mg PO DAILY PRN Tobacco use date assessed: 03/21/25 Dental Screening Dental Screen Date: 09/14/24 HPI HPI Comments History of Present Illness Details 59-year-old female with fatty liver disease, former smoker, hyperlipidemia, COPD, osteoarthritis, CAD, osteopenia, emphysema, hearing loss, MDD, seasonal affective disorder, [place] Status post breast implants, tubal ligation Social: working at [employer] 4 days/week, will be looking for new job. Health maintenance Pap smear summer reported as normal at [facility] Mammogram 05/2024 normal Colonoscopy 2024, [facility] [place] repeat in 5 years DEXA 06/2023 Osteopenia based on the lowest T-score value of -1.9 in the femoral neck applying World Health Organization criteria. 2. 10-YEAR FRACTURE RISK PREDICTION, FRAX: Major osteoporotic fracture (clinical spine, forearm, hip or shoulder) 14.7%. Hip fracture 1.8%. (repeat 2025) Tdap 2023 Flu 03/21/2507/2024 hearing test + hearing loss, wearing hearing aides [facility] - had echo done. Was ordered stress test, did not make it before insurance referral . Does not feel like needs this @ this time. [facility] Pulm Chiro Derm - appt in [place] October 28, 2024 rash on upper lip and scabs back of scalp - Actinic keratosis removed. History of Present Illness The patient is a 59 year old female presenting with a complete physical examination. Coronary Artery Disease: - History of coronary artery disease co-managed by cardiology. Hyperlipidemia: - History of hyperlipidemia currently managed with atorvastatin. Chronic Pain/Mood - Experiencing chronic pain, notably L knee pain potentially associated with the back. The condition is intermittent and managed with meloxicam. L knee pain is medial; intermittent; worse after rest. no known injury. Worse over the last 6 mo. not assoc w/ injury, swelling or redness. - Cymbalta Emphysema: - Emphysema condition co-managed by pulmonology, managed with as-needed use of albuterol. 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 - Engages in physical activities such as yard work and shoveling. - History of exposure to asbestos. Cats got into covered asbestos in basement. She has fixed this. Has no active concerns. Just wants to make mention. has regular CT scanning of lungs d/t hx of tobacco use. - Moderate alcohol consumption; no current tobacco use reported. Health Maintenance - Received pneumococcal vaccination earlier than age 65 due to COPD. - Up-to-date with mammogram and colonoscopy screenings. - Osteopenia management with recommendation to repeat bone density scan in 2025. - Discussion of seasonal vitamin D supplementation. - Flu vaccination administered during this visit. Review of Systems - Musculoskeletal: Reports intermittent knee pain associated with back. - Respiratory: No current chest pain; uses albuterol as needed. - Psychological: Mood is stable with treatment. - General: Engaged in physical activities without significant breathing issues. Physical Exam General: Well developed, well nourished, in no acute distress. Appears stated age. Head: Normocephalic, atraumatic. Eyes: Pupils are equal, round and reactive to light and accommodation. Conjunctivae are clear. Scleras nonicteric bilat. Vision grossly normal. Ears: TMs clear AU, EACS WNL. Patient reports having a hearing aid adjusted due to discomfort and headaches. Nose: Patent, without discharge. Neck: No carotid bruit bilat. Supple, no adenopathy or thyromegaly. Breast: Edu on SBE. Mammogram up to date as of May. Lungs: Clear to auscultation bilaterally. No rales, rhonchi or wheeze noted. Good air flow in all philippe. Heart: Regular rate and rhythm. No murmurs, click, rubs or gallops are noted. Abdomen: Bowel sounds present in all quadrants. The abdomen is soft, nontender, with no masses or organomegaly noted. No hernias are noted. : Deferred. Reviewed recommendations for routine [address] [employer]. Pulses: Peripheral pulses are equal and palpable bilaterally. Extremities: No clubbing, cyanosis nor edema is noted. FROM, normal strength and appearance L knee. Pain medially with active and passive ROM. Neurologic: Gait and station normal. Cranial Nerves 2-12 intact. Motor strength grossly symmetrical and intact. No sensory loss. Balance normal. Skin: No rashes, ulcers, or lesions noted. Turgor is good. Skin color is good. Hair and nails are without abnormalities. Patient had dermatological treatment with laser for ear and other areas. Psych: Normal eye contact, affect and mood appropriate, and normal interactions. Patient is alert and appropriate to context. Mood reported as good, with ongoing management of mental health with Cymbalta. Results See below - Labs: - Complete blood count normal. - Fasting blood glucose 109 mg/dL. - Hemoglobin A1c 5.6%. - Cholesterol total 229 mg/dL, LDL 158 mg/dL. - Vitamin D level 48.4 ng/mL. - Tests and diagnostics: - Bone density indicating osteopenia, with next evaluation due in 2025. Medical Decision Making Upon review, coronary artery disease remains managed with cardiology involvement. Hyperlipidemia, while improved, requires continued management with atorvastatin to achieve LDL goals. Chronic pain management is stable with current medications; however, we will monitor knee and back pain closely. For anxiety, current medications seem effective at maintaining mood stabilization. Emphysema management with albuterol as needed will continue, and existing asbestos exposure noted, follow-up for monitoring any pulmonary changes will be performed. Maintenance on pneumococcal vaccinations reflects proactive care due to COPD. Osteopenia will be monitored according to schedule. Continued surveillance includes lipid panels and A1c for upcoming evaluations. Discussion on pneumococcal vaccine registry check for validation as recommended. Plan 1. Coronary Artery Disease - Management with cardiology. - Monitor for symptom exacerbation. 2. Hyperlipidemia - Continue atorvastatin. - Regular lipid monitoring for LDL reduction. 3. Chronic Pain - Use meloxicam as needed. - Monitor knee/back pain continuation. - Xray L knee and Ortho consult 4. Anxiety Disorder - Maintain current treatment. - Monitor for changes in mood. 5. Emphysema - As-needed albuterol. Use is before triggers, such as yard work; if worsening or no improvement, may need to consider a daily maintenance inhaler. - Record asbestos exposure - Regular pulmonology follow-up. Patient Instructions - Continue taking prescribed medications as directed. - Use albuterol inhaler prior to heavy activity or if short of breath. - Report any changes in pain levels or anxiety symptoms. - Maintain scheduled health screenings and vaccinations. - RTO 6 mo routine fu sooner PRN Consent Patient was informed and verbally consented to the use of an ambient scribe for clinicnote documentation during this visit. Extra time spent 15 minutes. [facility] Medical History (Updated 03/22/25 @ 09:02 by [facility] Fatty liver Hyperlipidemia Personal history of nicotine dependence Surgical History History of surgery H/O shoulder surgery History of tubal ligation History of breast implant Family History Father Congestive heart failure (CHF) Pacemaker Other Mental health disorder Substance use disorder Social History (Updated 03/21/25 @ 12:09 by Radha Severino CMA) Housing: House Alcohol intake: current Alcohol intake frequency: a few times a week Patient Tobacco Use Status: Former Tobacco user e-Cigarette/Vaping Use: Never Used Second Hand Smoke Exposure: No service: No Current occupational status: employed Cognitive needs: No Hearing needs: No Vision needs: No Questionnaire Thrive Questionnaire Date Thrive assessed: 09/12/24 I am a: Patient What is your living situation today?: I have a steady place to live Within the past 12 months, did the food you bought not last and you didn't have the money to get more?: Never true Within the past 12 months, did you worry whether your food would run out before you got money to buy more?: Never true Do you have trouble paying for medicines?: No Do you have trouble getting transportation to medical appointments?: No Do you have trouble paying your heating and electricity bill?: No Do you have trouble taking care of your child, family member or friend?: No Do you have trouble with day-to-day activities such as bathing, preparing meals, shopping, managing finances, etc.?: No Are you currently unemployed and looking for a job?: No Are you interested in more education?: No Please select the resources that you would like help with: None Currently or been in a relationship where the following occur: No concerns reported THRIVE Score: 0 AUDIT C Alcohol Use Questionnaire (AUDIT-C) 1. How often do you have a drink containing alcohol?: 2-3 times a week 2. How many drinks containing alcohol do you have on a typical day when you are drinking?: 3 or 4 3. How often do you have six or more drinks on one occasion?: Never Total Score: 4 Score Reviewed/Action Taken: Yes MARY-7 AMB Questionnaire MARY-7 Date MARY - 7 assessed: 09/14/24 Source: Developed by Drs. Teodoro Hsieh, Daisha Valenzuela, Roberto Corona and colleagues, with an educational rebecca from [id number]. Physical exam (Primary Care) Vital Signs: Last Vital Signs Temp 99.2 F 03/21/25 12:08 Pulse 77 03/21/25 12:08 Resp 14 03/21/25 12:08 BP 128/82 03/21/25 12:08 Pulse Ox 95 03/21/25 12:08 Oxygen Delivery Method Room Air 03/21/25 12:08 BMI result Body Mass Index 24.5 Tobacco/Smoking Status: Tobacco use Status Tobacco use date assessed 03/21/25 03/21/25 12:14 Patient Tobacco Use Status Former Tobacco user 03/21/25 12:14 e-Cigarette/Vaping Use Never Used 03/21/25 12:14 Thrive Assessment: Date of Thrive Assessment Date Thrive assessed 09/12/24 03/21/25 12:14 Currently or been in a relationship where the following occur: No concerns reported Office Procedures Flu Questionnaire Does the patient have a severe egg allergy?: No Does the patient have severe life threatening allergies?: No Does the patient have a fever or illness today?: No Has the patient ever had Guillain-N[place] Syndrome?: No Has the patient ever had any past reaction to a flu shot?: No Immunizations Fluarix [id number] (PF) 45 mcg (15 mcg x 3)/0.5 mL IM syringe Performing Provider: NORMAN Darnell Performing Location: [facility] [place] Family Medicine Administered by: Felicia Rubalcava MA on 03/21/25 12:50 Dose Route Admin Location Dispensed Lot Number Expiration Date NDC Metal Pattern Maker 0.5 mL IM Left Deltoid 0.5 mL [id number] 10/25/25 [id number] [employer] VIS Given Date VIS Provided VIS Publication Date 03/21/25 Single Vaccine 24 Eligibility Eligibility Date Funding Source Not [facility] Eligible 03/21/25 Private Results Reviewed Results Reviewed: Laboratory 03/17/25 Result Units Range Interpretation Provider Comments White Blood Count 6.1 X10*3/uL (4.8-10.8) Red Blood Count 4.45 X10*6/uL (4.20-5.50) Hemoglobin 13.4 g/dl (12.0-16.0) Hematocrit 40.2 % (37.0-47.0) Mean Corpuscular Volume 90.3 fL (80.0-98.0) Mean Corpuscular Hemoglobin 30.1 pg (27.0-33.0) Mean Corpuscular Hemoglobin Concent 33.3 g/dl (31.0-35.0) Red Cell Distribution Width 12.7 % (11.0-16.0) Platelet Count 233 X10*3/uL (160-400) Mean Platelet Volume 10.1 fL (9.4-12.3) Nucleated RBC Absolute Count (auto) 0.000 X10*3/uL (0.0-0.012) Nucleated Red Blood Cells % (auto) 0.0 /100WBC (0.0-0.2) Sodium Level 140 mmol/L (135-145) Potassium Level 3.6 mmol/L (3.3-5.1) Chloride Level 105 mmol/L (96-108) Carbon Dioxide Level 27 mmol/L (22-29) Anion Gap 12 (12-20) Blood Urea Nitrogen 18 mg/dL (9-16) High Creatinine 0.60 mg/dL (0.5-1.4) Estimated Creatinine Clearance Calc Not Reportable Estimat Glomerular Filtration Rate > 60 Fasting Glucose 109 mg/dL (60-99) High Estimated Average Glucose 114 mg/dL Hemoglobin A1c Percent 5.6 % (<6.0) Calcium Level 8.9 mg/dL (8.4-10.2) Total Bilirubin 0.7 mg/dL (0.0-1.0) Aspartate Amino Transf (AST/SGOT) 31 U/L (5-31) Alanine Aminotransferase (ALT/SGPT) 22 U/L (0-31) Alkaline Phosphatase 60 U/L (39-117) Total Protein 6.9 g/dL (6.5-8.0) Albumin 4.5 g/dL (3.5-5.0) Triglycerides Level 93 mg/dL (<150) Cholesterol Level 229 mg/dL (<200) High LDL Cholesterol, Calculated 124 mg/dL (<100) High HDL Cholesterol 87 mg/dL (>40) Vitamin B12 Level 519 pg/mL (200-900) 25-Hydroxy Vitamin D Total 26.7 ng/mL (>30) Low Folate 8.2 ng/mL (> or = 4.0) Thyroid Stimulating Hormone (TSH) 2.48 uIU/mL (0.32-4.0) Urine Color Yellow Urine Appearance Cloudy Urine pH 5.5 (5.0-9.0) Urine Specific [place] 1.025 (1.005-1.025) Urine Protein Trace mg/dL (Neg-Trace) Urine Glucose (UA) Negative mg/dL (Negative) Urine Ketones Negative mg/dL (Negative) Urine Blood Negative (Negative) Urine Nitrite Negative (Negative) Urine Leukocyte Esterase Negative (Negative) Urine Creatinine 240.48 mg/dL Urine Microalbumin 15.0 mg/L Urine Microalbumin/Creatinine Ratio 6.2 ug/mg cr (<30) Coding Level of Care Code Est Pt Level 2 (46928) Est Pt Prev Care 40-64y(51199) Diagnoses Adult general medical exam Z00.00 Asbestos exposure Z77.090 Osteopenia of multiple sites M85.89 Osteopenia location: multiple sites Acute pain of left knee M25.562 Chronicity: acute Mixed hyperlipidemia E78.2 Hyperlipidemia type: mixed hyperlipidemia Fatty liver K76.0 CAD in [place] artery I25.10 Influenza vaccination administered at current visit Z23 Breast cancer screening by mammogram Z12.31 History of colonoscopy Z98.890 Assessment & Plan Assessment & Plan (1) Adult general medical exam: Onset Date: ~03/21/25 Code(s): Z00.00 - Encounter for general adult medical examination without abnormal findings Category: Medical (2) Asbestos exposure: Onset Date: ~2024 Code(s): Z77.090 - Contact with and (suspected) exposure to asbestos Category: Medical (3) Osteopenia: Onset Date: 06/2023 Comment: DEXA 06/2023Osteopenia based on the lowest T-score value of -1.9 in the femoral neck applying World Health Organization criteria. 2. 10-YEAR FRACTURE RISK PREDICTION, FRAX: Major osteoporotic fracture (clinical spine, forearm, hip or shoulder) 14.7%. Hip fracture 1.8%. Code(s): M85.80 - Other specified disorders of bone density and structure, unspecified site Category: Medical Qualifiers: Osteopenia location: multiple sites Qualified Code(s): M85.89 - Other specified disorders of bone density and structure, multiple sites (4) Left knee pain: Code(s): M25.562 - Pain in left knee Category: Medical Qualifiers: Chronicity: acute Qualified Code(s): M25.562 - Pain in left knee (5) Hyperlipidemia: Comment: atorvastatin 40mg QD. Recheck lipids in 6 mo,titrate to LDL <70 Cardiology referral active, for further workup of hyperlipidemia and CAD per her request Code(s): E78.5 - Hyperlipidemia, unspecified Category: Medical Qualifiers: Hyperlipidemia type: mixed hyperlipidemia Qualified Code(s): E78.2 - Mixed hyperlipidemia (6) Fatty liver: Code(s): K76.0 - Fatty (change of) liver, not elsewhere classified Category: Medical (7) CAD in [place] artery: Comment: 12/24/23 Ct of chest + CAD Code(s): I25.10 - Atherosclerotic heart disease of [place] coronary artery without angina pectoris Category: Medical (8) Influenza vaccination administered at current visit: Onset Date: ~03/22/25 Code(s): Z23 - Encounter for immunization Category: Medical (9) Breast cancer screening by mammogram: Onset Date: ~05/2024 Code(s): Z12.31 - Encounter for screening mammogram for malignant neoplasm of breast Category: Medical (10) History of colonoscopy: Onset Date: ~09/2024 Comment: + POLYP, REPEAT 5 YEARS [facility] [place] Code(s): Z98.890 - Other specified postprocedural states Category: Surgical Plan . Orders: Orders Lipid Panel 6 Months E78.2 - Mixed hyperlipidemia, I25.10 - Atherosclerotic heart disease of [place] coronary artery without angina pectoris, K76.0 - Fatty (change of) liver, not elsewhere classified, M85.89 - Other specified disorders of bone density and structure, multiple sites Comprehensive Met. Panel 6 Months E78.2 - Mixed hyperlipidemia, I25.10 - Atherosclerotic heart disease of [place] coronary artery without angina pectoris, K76.0 - Fatty (change of) liver, not elsewhere classified, M85.89 - Other specified disorders of bone density and structure, multiple sites Influenza [id number] Immunization 03/21/25 Z23 - Encounter for immunization XR DEXA axial skeleton 06/27/25 M85.89 - Other specified disorders of bone density and structure, multiple sites, Z13.820 - Encounter for screening for osteoporosis XR knee LT 4V 03/21/25 M25.562 - Pain in left knee, M85.89 - Other specified disorders of bone density and structure, multiple sites Hemoglobin A1c 6 Months E78.2 - Mixed hyperlipidemia, I25.10 - Atherosclerotic heart disease of [place] coronary artery without angina pectoris, K76.0 - Fatty (change of) liver, not elsewhere classified, M85.89 - Other specified disorders of bone density and structure, multiple sites Vitamin D 25-OH Total 6 Months E78.2 - Mixed hyperlipidemia, I25.10 - Atherosclerotic heart disease of [place] coronary artery without angina pectoris, K76.0 - Fatty (change of) liver, not elsewhere classified, M85.89 - Other specified disorders of bone density and structure, multiple sites Referrals Orthopedics Referral M25.562 - Pain in left knee, M85.89 - Other specified disorders of bone density and structure, multiple sites Medications: New meloxicam 15 mg PO DAILY PRN 30 tabs 2RF pain M19.90 - Unspecified osteoarthritis, unspecified site Changed From albuterol sulfate 90 mcg/actuation (Ventolin HFA) 2 puffs inhalation Q4-6H PRN To albuterol sulfate 90 mcg/actuation (Ventolin HFA) 2 puffs inhalation Q6H PRN 8.5 grams 2RF shortness of breath or wheezing From duloxetine (Cymbalta) 20 mg PO BID 180 caps 1RF To duloxetine 20 mg PO BID 180 caps 1RF Refilled atorvastatin 40 mg PO BEDTIME 90 tabs 1RF hydroxyzine HCl 25 mg PO BID PRN 90 tabs 4RF anxiety Patient Instructions: Health screenings for women You should visit your health care provider from time to time, even if you are healthy. The purpose of these visits is to: Screen for medical issues Assess your risk for future medical problems Encourage a healthy lifestyle Update vaccinations and other preventive care services Help you get to know your provider in case of an illness Information Even if you feel fine, you should still see your provider for regular checkups. These visits can help you avoid problems in the future. For example, the only way to find out if you have high blood pressure is to have it checked regularly. High blood sugar and high cholesterol levels also may not have any symptoms in the early stages. A simple blood test can check for these conditions. There are specific times when you should see your provider or receive specific health screenings. The [place] Preventive Services Task Force publishes a list of recommended screenings. Below are screening guidelines for women ages 18 to 39. BLOOD PRESSURE SCREENING Your blood pressure should be checked at least once every 3 to 5 years if: Your blood pressure is in the normal range (top number less than 120 mm Hg and bottom number less than 80 mm Hg) You don't have risk factors for high blood pressure Ask your provider if you need your blood pressure checked more often if: The top number is 120 to 129 mm Hg or the bottom number is 70 to 79 mm Hg You have diabetes, heart disease, kidney problems, are overweight, or have certain other health conditions You have a first-degree relative with high blood pressure You are Black You had high blood pressure during a If the top number is 130 mm Hg or greater or the bottom number is 80 mm Hg or greater, this is considered stage 1 hypertension. Schedule an appointment with your provider to learn how you can reduce your blood pressure. Watch for blood pressure screenings in your area. Ask your provider if you can stop in to have your blood pressure checked. BREAST CANCER SCREENING Experts do not agree about the benefits of breast self-exams in finding breast cancer or saving lives. Talk to your provider about what is best for you. A screening mammogram is not recommended for most women under age 40. Your provider may discuss and recommend mammograms, MRI scans, or ultrasounds if you have an increased risk for breast cancer, such as: A mother or sister who had breast cancer at a young age (most often starting screening earlier than the age the close relative was diagnosed) You carry a high-risk genetic marker CERVICAL CANCER SCREENING Cervical cancer screening should start at age 21 years unless your provider advises otherwise. After the first test: Women ages 21 through 29 should have a Pap test every 3 years. Exoprts do not agree on whether HPV testing is recommended for this age group. Women ages 30 through 65 should be screened with either a Pap test every 3 years or the HPV test every 5 years or both tests every 5 years (called cotesting ). Women who have been treated for precancer (cervical dysplasia) should continue to have Pap tests for 20 years after treatment or until age 65, whichever is longer. If you have had your uterus and cervix removed (total hysterectomy), and you have not been diagnosed with cervical cancer or precancer (high grade cervical neoplasia), you do not need cervical cancer screening. CHOLESTEROL SCREENING Cholesterol screening should begin at: Age 45 for women with no known risk factors for coronary heart disease Age 20 for women with known risk factors for coronary heart disease Repeat cholesterol screening should take place: Every 5 years for women with normal cholesterol levels More often if changes occur in lifestyle (including weight gain and diet) More often if you have diabetes, heart disease, kidney problems, or certain other conditions DIABETES SCREENING You should be screened for diabetes starting at age 35 and then repeated every 3 years if you have no risk factors for diabetes. Screening may need to start earlier and be repeated more often if you have other risk factors for diabetes, such as: You have a first degree relative with diabetes. You are overweight or have obesity. You have high blood pressure, prediabetes, or a history of heart disease. Screening for diabetes should be done if you are planning to become and you are overweight and have other risk factors such as high blood pressure. DENTAL EXAM Go to the dentist once or twice every year for an exam and cleaning. Your dentist will evaluate if you need more frequent visits. EYE EXAM Have an eye exam every 5 to 10 years before age 40. If you have vision problems, have an eye exam every 2 years or more often if recommended by your provider. You should have an eye exam that includes an examination of your retina (back of your eye) at least every year if you have diabetes. IMMUNIZATIONS Commonly needed vaccines include: Flu shot: get one every year. COVID-19 vaccine: ask your provider what is best for you. Tetanus-diphtheria and acellular pertussis (Tdap) vaccine: have one at or after age 19 as one of your tetanus-diphtheria vaccines if you did not receive it as an adolescent. Tetanus-diphtheria: have a booster (or Tdap) every 10 years. Varicella vaccine: receive 2 doses if you never had chickenpox or the varicella vaccine. Hepatitis B vaccine: receive 2, 3, or 4 doses, depending on your exact circumstances. Measles, mumps, and rubella (MMR) vaccine: receive 1 to 2 doses if you are not already immune to MMR. Your provider can tell you if you are immune. Ask your provider about the human papillomavirus (HPV) vaccine if: You have not received the HPV vaccine in the past You have not completed the full vaccine series (you should catch up on this shot) Ask your provider if you should receive other immunizations if you have certain health problems that increase your risk for some diseases such as pneumonia. INFECTIOUS DISEASE SCREENING Women who are sexually active should be screened for chlamydia and gonorrhea up until age 25. Women 25 years and older should be screened for chlamydia and gonorrhea if at high risk. Screening for hepatitis C: All adults ages 18 to 79 should get a one-time test for hepatitis C. people should be screened at every . Screening for human immunodeficiency virus (HIV): All people ages 15 to 65 should get a one-time test for HIV. Depending on your lifestyle and medical history, you may also need to be screened for infections such as syphilis and HIV, as well as other infections. PHYSICAL EXAM All adults should visit their provider from time to time, even if they are healthy. The purpose of these visits is to: Screen for disease Assess your risk of future medical problems Encourage a healthy lifestyle Update your vaccinations and other preventive care services Maintain a relationship with a provider in case of an illness Your height, weight, and BMI should be checked at every exam. During your exam, your provider may ask you about: Depression and anxiety Diet and exercise Alcohol and tobacco use Safety issues, such as using seat belts, smoke detectors, and intimate partner violence Your medicines and risk for interactions SKIN SELF-EXAM Your provider may check your skin for signs of skin cancer, especially if you're at high risk, such as if you: Have had skin cancer before Have close relatives with skin cancer Have a weakened immune system OTHER SCREENING Talk with your provider about colon cancer screening if you have a strong family history of colon cancer or polyps, or if you have had inflammatory bowel disease or polyps yourself. Routine bone density screening of women under 40 is not recommended.
[2025-03-21 12:08] VITALS: BP 128/82; PULSE 77; RESP 14; TEMP 37.3; O2SAT 95; BMI 24.5
== END 2025-03-21 15:15 | disposition home or self-care (01) ==
LOC: HO.HMCFM 12:02
PROVIDERS: PCP Nurse Practitioner Family; Visit Provider Nurse Practitioner Family
DX: Z23 Encounter for immunization (principal)

== ENCOUNTER → 2025-03-21 12:01 | Outpatient (BNVA) | payer OTHER, SELFPAY | PROVIDERS: PCP Nurse Practitioner Family; Visit Provider Nurse Practitioner Family | DX: Z00.00 Encounter for general adult medical examination without abnormal findings (principal); I25.10 Atherosclerotic heart disease of native coronary artery without angina pectoris; E78.5 Hyperlipidemia, unspecified; M25.561 Pain in right knee; G89.29 Other chronic pain; F41.9 Anxiety disorder, unspecified; J43.9 Emphysema, unspecified; M85.89 Other specified disorders of bone density and structure, multiple sites; M25.562 Pain in left knee; E78.2 Mixed hyperlipidemia; K76.0 Fatty (change of) liver, not elsewhere classified; Z23 Encounter for immunization; Z77.090 Contact with and (suspected) exposure to asbestos; Z98.890 Other specified postprocedural states | CPT/HCPCS: 90471; 90656; 99212; 99396 ==